=== PATIENT | male | born 1980 | race Caucasian/White ===

== ENCOUNTER 2020-06-13 14:50 | Emergency (ER) | payer MEDICAID, SELFPAY ==
[2020-06-13 15:16] VITALS: BP 127/71; PULSE 83; RESP 22; TEMP 36.6; O2SAT 99; BMI 55.0
--- NOTE | 2020-06-13 15:16 | ECG_ITS ---
Test Reason : CP Blood Pressure : / mmHG Vent. Rate : 075 BPM Atrial Rate : 075 BPM P-R Int : 188 ms QRS Dur : 086 ms QT Int : 372 ms P-R-T Axes : 043 065 042 degrees QTc Int : 415 ms Normal sinus rhythm Normal ECG No previous ECGs available Referred By: Terence Sargent Electronically Signed By:LETICIA ROMO MD
--- NOTE | 2020-06-13 15:17 | XR_ITS ---
EXAMINATION: XR CHEST CLINICAL INFORMATION: Chest pain COMPARISON: None TECHNIQUE: Frontal view of the chest was obtained. FINDINGS: No significant abnormality is noted involving the heart, lungs, mediastinum, bony thorax or soft tissues. XR/XR chest 1V IMPRESSION: Unremarkable examination.
--- NOTE | 2020-06-13 15:19 | ED.CHESTPAIN ---
HPI - Chest Pain General Chief Complaint: Chest Pain Stated Complaint: chest pain Time Seen by Provider: 06/13/20 15:16 Source: patient Mode of arrival: ambulatory Limitations: no limitations History of Present Illness HPI narrative: Patient presents to the ED for tingling in hands/face, sweating, nervousness, and chest pain for the past 2 days. patient states he started having symptoms after his told him some news. patient denies any swelling of legs, calf pain, shrontess of breath on exertion, dizziness, or passing out. patient denies any recent exposure to covid. Related Data Allergies Allergy/AdvReac Type Severity Reaction Status Date / Time No Known Allergies Allergy Unverified 01/27/20 19:11 [No Known Allergies*] Review of Systems Review of Systems: Yes all other systems are reviewed and are negative Constitutional: Constitutional: Reports as per HPI and Reports no additional constitutional complaints Eyes: Eyes: Reports as per HPI and Reports no additional eye complaints ENT: Reports system reviewed and no additional complaints, except as documented and Reports as per HPI Cardiovascular: Cardiovascular: Reports as per HPI, Reports no additional cardiovascular complaints and Reports chest pain Respiratory: Respiratory: Reports as per HPI and Reports no additional respiratory complaints Gastrointestinal: Gastrointestinal: Reports as per HPI and Reports no additional gastrointestinal complaints Genitourinary: Genitourinary: Reports no additional male genitourinary complaints and Reports as per HPI Musculoskeletal: Musculoskeletal: Reports no additional musculoskeletal complaints and Reports as per HPI Neurologic: Reports system reviewed and no additional complaints, except as documented and Reports as per HPI Psychiatric: Psychiatric: Reports no additional psychiatric complaints and Reports as per HPI [facility] Past Medical History Medical History Anxiety Depression GERD (gastroesophageal reflux disease) Hypercholesteremia Hypertension Social History Social History Advance Directives: No Advance Directives Information Provided: Yes Physical Exam Vital Signs: Vital Signs: Last Vital Signs Temp 98 F 06/13/20 15:16 Pulse 83 06/13/20 15:16 Resp 22 H 06/13/20 15:16 BP 127/71 06/13/20 15:16 Pulse Ox 99 06/13/20 15:16 Body Mass Index 55.0 Const: Other: patient cry and anxious. patient states history of severe anxiety. General: cooperative, healthy appearing, no acute distress, well developed, alert, awake and Physically active Orientation/consciousness: patient oriented x3 HENMT: Head: Yes normal to inspection, Yes No palpable skull fracture present, Yes normocephalic and Yes atraumatic Eyes: General: appearance normal, both eyes and all related structures Neck: Neck: Yes normal visual inspection, Yes full ROM, Yes no lymphadenopathy, Yes no meningeal signs and No tender Chest: Chest palpation & inspection: normal inspection of the chest and normal palpation of entire chest wall Breast/axilla inspection: normal inspection of the breasts Resp: Effort & Inspection: normal respiratory effort and able to speak in complete sentences Auscultation: clear to auscultation bilaterally Cardio: Jugular venous distension: no JVD Heart sounds: S1 normal heart sound present and S2 normal heart sound present GI: Inspection: Yes normal to inspection Palpation (GI): Soft to palpation, not firm, nontender, no guarding and not rigid : General: No CVA tenderness and Yes no CVA tenderness Back/Spine/Pelvis: Back: no CVA tenderness, No CVA tenderness and No back tenderness Skin: General skin exam: no rashes or lesions noted and elasticity normal Neuro: General: patient oriented x3, no meningeal signs and CN's II-XI intact bilaterally Cranial nerves: Yes CN's II-XII intact bilaterally Extrem: Other: lower extremities negative for swelling, pitting edmea, or calf tenderness. General: Yes normal to inspection and Yes full ROM Psych: Appearance: grossly normal, well kempt and not disheveled Course Course Course Narrative: Anxiety. Will do medical workup due to obestiy Reevaluation(s) Reevaluation #1: Patient ekg normal and negative for stemi. Patient troponin is negative. Patient's D-dimer is negative with perc score of 0. Chest xray negative for pneumonia and covid swab is negative. After watching videos on his cellphone. patient is no longer anxious and states he feels better. patient will follow up with his pCp and therapist. MDM - Chest Pain MDM Narrative Medical decision making narrative: anxiety, chest pain Lab Data Result diagrams: 06/13/20 15:57 06/13/20 15:57 Labs: Lab Results 06/13/20 06/13/20 06/13/20 Range/Units 15:56 15:56 15:57 WBC 12.7 H (4.8-10.8) X10*3/uL RBC 5.39 (4.60-5.80) X10*6/uL Hgb 14.5 (14.0-18.0) g/dl Hct 45.3 (42-52) % MCV 84.0 (80-98) fL MCH 26.9 L (27.0-33.0) pg MCHC 32.0 (31.0-36.0) g/dl RDW 14.2 (11.0-16.0) % Plt Count 220 (160-400) X10*3/uL MPV 12.3 (9.4-12.4) fL Immature Gran % (Auto) 0.4 (0.0-0.4) % Neut % (Auto) 78.3 H (45-73) % Lymph % (Auto) 14.2 L (20-40) % Pitkin % (Auto) 6.5 (2-11) % Eos % (Auto) 0.4 (0-4) % Baso % (Auto) 0.2 (0-2) % Lymph # (Auto) 1.8 (1.2-4.9) X10*3/uL Pitkin # (Auto) 0.8 (0.1-1.2) X10*3/uL Eos # (Auto) 0.1 (0.0-0.4) X10*3/uL Baso # (Auto) 0.0 (0.0-0.2) X10*3/uL Abs Immat Gran (auto) 0.05 H (0.00-0.03) X10*3/uL Absolute Neuts (auto) 9.9 H (2.0-8.3) X10*3/uL Absolute Nucleated RBC 0.000 (0.0-0.012) X10*3/uL Nucleated RBC % (auto) 0.0 (0.0-0.2) /100WBC PT (10.8-13.0) SEC INR (0.9-1.1) APTT (24.1-38.0) SEC D-Dimer NG/ML Sodium (135-145) mmol/L Potassium (3.3-5.1) mmol/L Chloride (96-108) mmol/L Carbon Dioxide (22-29) mmol/L Anion Gap (12-20) BUN (9-16) mg/dL Creatinine (0.5-1.4) mg/dL Estim Creat Clear Calc Estimated GFR Random Glucose (60-115) mg/dL Calcium (8.4-10.2) mg/dL Ferritin (20-250) ng/mL Total Bilirubin (0.0-1.0) mg/dL Direct Bilirubin (0.0-0.5) mg/dL AST (5-37) U/L ALT (0-40) U/L Alkaline Phosphatase (39-117) U/L Lactate Dehydrogenase (118-273) U/L Troponin I High Sens (<3.5-35.0) ng/L B-Natriuretic Peptide (<100) pg/mL Total Protein (6.5-8.0) g/dL Albumin (3.5-5.0) g/dL Lipase 18 (8-78) U/L Procalcitonin 0.02 ng/mL Coronavirus (PCR) (Negative) Influenza Type A (PCR) (Negative) Influenza Type B (PCR) (Negative) RSV RNA Qual (PCR) (Negative) 06/13/20 06/13/20 06/13/20 Range/Units 15:57 15:57 15:57 WBC (4.8-10.8) X10*3/uL RBC (4.60-5.80) X10*6/uL Hgb (14.0-18.0) g/dl Hct (42-52) % MCV (80-98) fL MCH (27.0-33.0) pg MCHC (31.0-36.0) g/dl RDW (11.0-16.0) % Plt Count (160-400) X10*3/uL MPV (9.4-12.4) fL Immature Gran % (Auto) (0.0-0.4) % Neut % (Auto) (45-73) % Lymph % (Auto) (20-40) % Pitkin % (Auto) (2-11) % Eos % (Auto) (0-4) % Baso % (Auto) (0-2) % Lymph # (Auto) (1.2-4.9) X10*3/uL Pitkin # (Auto) (0.1-1.2) X10*3/uL Eos # (Auto) (0.0-0.4) X10*3/uL Baso # (Auto) (0.0-0.2) X10*3/uL Abs Immat Gran (auto) (0.00-0.03) X10*3/uL Absolute Neuts (auto) (2.0-8.3) X10*3/uL Absolute Nucleated RBC (0.0-0.012) X10*3/uL Nucleated RBC % (auto) (0.0-0.2) /100WBC PT 13.8 H (10.8-13.0) SEC INR 1.2 H (0.9-1.1) APTT 37.9 (24.1-38.0) SEC D-Dimer < 200 NG/ML Sodium 139 (135-145) mmol/L Potassium 4.6 (3.3-5.1) mmol/L Chloride 105 (96-108) mmol/L Carbon Dioxide 27 (22-29) mmol/L Anion Gap 12 (12-20) BUN 9 (9-16) mg/dL Creatinine 0.76 (0.5-1.4) mg/dL Estim Creat Clear Calc 217.8 Estimated GFR > 60 Random Glucose 97 (60-115) mg/dL Calcium 8.6 (8.4-10.2) mg/dL Ferritin 54 (20-250) ng/mL Total Bilirubin 0.2 (0.0-1.0) mg/dL Direct Bilirubin < 0.2 (0.0-0.5) mg/dL AST 17 (5-37) U/L ALT 25 (0-40) U/L Alkaline Phosphatase 76 (39-117) U/L Lactate Dehydrogenase 173 (118-273) U/L Troponin I High Sens < 3.5 (<3.5-35.0) ng/L B-Natriuretic Peptide < 10 (<100) pg/mL Total Protein 7.3 (6.5-8.0) g/dL Albumin 4.0 (3.5-5.0) g/dL Lipase (8-78) U/L Procalcitonin ng/mL Coronavirus (PCR) (Negative) Influenza Type A (PCR) (Negative) Influenza Type B (PCR) (Negative) RSV RNA Qual (PCR) (Negative) 06/13/20 Range/Units 17:52 WBC (4.8-10.8) X10*3/uL RBC (4.60-5.80) X10*6/uL Hgb (14.0-18.0) g/dl Hct (42-52) % MCV (80-98) fL MCH (27.0-33.0) pg MCHC (31.0-36.0) g/dl RDW (11.0-16.0) % Plt Count (160-400) X10*3/uL MPV (9.4-12.4) fL Immature Gran % (Auto) (0.0-0.4) % Neut % (Auto) (45-73) % Lymph % (Auto) (20-40) % Pitkin % (Auto) (2-11) % Eos % (Auto) (0-4) % Baso % (Auto) (0-2) % Lymph # (Auto) (1.2-4.9) X10*3/uL Pitkin # (Auto) (0.1-1.2) X10*3/uL Eos # (Auto) (0.0-0.4) X10*3/uL Baso # (Auto) (0.0-0.2) X10*3/uL Abs Immat Gran (auto) (0.00-0.03) X10*3/uL Absolute Neuts (auto) (2.0-8.3) X10*3/uL Absolute Nucleated RBC (0.0-0.012) X10*3/uL Nucleated RBC % (auto) (0.0-0.2) /100WBC PT (10.8-13.0) SEC INR (0.9-1.1) APTT (24.1-38.0) SEC D-Dimer NG/ML Sodium (135-145) mmol/L Potassium (3.3-5.1) mmol/L Chloride (96-108) mmol/L Carbon Dioxide (22-29) mmol/L Anion Gap (12-20) BUN (9-16) mg/dL Creatinine (0.5-1.4) mg/dL Estim Creat Clear Calc Estimated GFR Random Glucose (60-115) mg/dL Calcium (8.4-10.2) mg/dL Ferritin (20-250) ng/mL Total Bilirubin (0.0-1.0) mg/dL Direct Bilirubin (0.0-0.5) mg/dL AST (5-37) U/L ALT (0-40) U/L Alkaline Phosphatase (39-117) U/L Lactate Dehydrogenase (118-273) U/L Troponin I High Sens (<3.5-35.0) ng/L B-Natriuretic Peptide (<100) pg/mL Total Protein (6.5-8.0) g/dL Albumin (3.5-5.0) g/dL Lipase (8-78) U/L Procalcitonin ng/mL Coronavirus (PCR) NEGATIVE (Negative) Influenza Type A (PCR) NEGATIVE (Negative) Influenza Type B (PCR) NEGATIVE (Negative) RSV RNA Qual (PCR) NEGATIVE (Negative) ECG Data ECG #1: Interpretation: NOrmal sinus rhythm. vent rate 75, IL interval 188, and QRS 86, QTC 415. negative for stemi. Discharge Plan Discharge Clinical Impression: Chest pain, Anxiety Patient Disposition: Home, Self-Care Instructions: Chest Pain (ED), Anxiety (ED) Additional Instructions: Return to the ED for any chest pain, shortness of breath, fever, chills, swelling of lower extremities, calf pain, or any other concerning symptoms. Follow up with PCP. Interventions: ED Discharge Assessment Last Done: 06/13/20 18:32 Print Language: Iranian
[2020-06-13 16:04] LABS: MANUAL DIFF FLAG NO
[2020-06-13 16:05] LABS: Basophils Percent Auto 0.2 % (0-2); Eosinophils Absolute Auto 0.1 X10*3/uL (0.0-0.4); Eosinophils Percent Auto 0.4 % (0-4); Hematocrit 45.3 % (42-52); Hemoglobin 14.5 g/dl (14.0-18.0); Imm Gran Abs Auto 0.05 X10*3/uL (0.00-0.03); Imm Gran Pct Auto 0.4 % (0.0-0.4); Lymphocytes Absolute Auto 1.8 X10*3/uL (1.2-4.9); Lymphocytes Percent Auto 14.2 % (20-40); Mean Corpuscular Hemoglobin 26.9 pg (27.0-33.0); Mean Platelet Volume 12.3 fL (9.4-12.4); Monocytes Absolute Auto 0.8 X10*3/uL (0.1-1.2); Monocytes Percent Auto 6.5 % (2-11); Neutrophils Absolute Auto 9.9 X10*3/uL (2.0-8.3); Neutrophils Percent Auto 78.3 % (45-73); Platelet Count 220 X10*3/uL (160-400); Red Blood Count 5.39 X10*6/uL (4.60-5.80); Red Cell Distribution Width 14.2 % (11.0-16.0); White Blood Count 12.7 X10*3/uL (4.8-10.8)
[2020-06-13 16:19] LABS: INTERNATIONAL NORM RATIO 1.2 (0.9-1.1); Prothrombin Time 13.8 SEC (10.8-13.0)
[2020-06-13 16:22] LABS: Partial Thromboplastin Time 37.9 SEC (24.1-38.0)
[2020-06-13 16:38] LABS: Alanine Aminotransferase 25 U/L (0-40); Alkaline Phosphatase 76 U/L (39-117); Anion Gap 12 (12-20); Aspartate Amino Transferase 17 U/L (5-37); Bilirubin Direct < 0.2 mg/dL (0.0-0.5); Bilirubin Total 0.2 mg/dL (0.0-1.0); Blood Urea Nitrogen 9 mg/dL (9-16); Calcium 8.6 mg/dL (8.4-10.2); Carbon Dioxide 27 mmol/L (22-29); Chloride 105 mmol/L (96-108); Creatinine Clr Calc Pharmacy 217.8; Estimated Glomerular Filt Rate > 60; Glucose Random 97 mg/dL (60-115); Lactate Dehydrogenase 173 U/L (118-273); Potassium 4.6 mmol/L (3.3-5.1); Sodium 139 mmol/L (135-145); Total Protein 7.3 g/dL (6.5-8.0)
[2020-06-13 16:38] LABS: Lipase 18 U/L (8-78)
[2020-06-13 16:42] LABS: B Type Natriuretic Peptide < 10 pg/mL (<100); Troponin-I High Sensitivity < 3.5 ng/L (<3.5-35.0)
[2020-06-13 16:55] LABS: Procalcitonin 0.02 ng/mL
[2020-06-13 16:58] LABS: Ferritin 54 ng/mL (20-250)
[2020-06-13 17:44] LABS: D Dimer < 200 NG/ML
[2020-06-13 18:43] LABS: Influenza A PCR NEGATIVE (Negative); Influenza B PCR NEGATIVE (Negative); Resp Syncy Virus RNA Qual PCR NEGATIVE (Negative); SARS COV2 PCR INHOUSE NEGATIVE (Negative)
== END 2020-06-13 18:49 | disposition home or self-care (01) ==
LOC: HO.ED 18:49
PROVIDERS: Physician Assistant; Emergency Provider Emergency Medicine
DX: R07.9 Chest pain, unspecified (principal); F41.9 Anxiety disorder, unspecified; Z20.822 Contact with and (suspected) exposure to COVID-19; I10 Essential (primary) hypertension; K21.9 Gastro-esophageal reflux disease without esophagitis
CPT/HCPCS: 0241U; 36415; 71045; 80053; 80076; 82248; 82728; 83615; 83690; 83880; 84145; 84484; 85025; 85379; 85610; 85730; 93005; 99283

== ENCOUNTER 2020-07-17 20:39 | Emergency (ER) | payer MEDICAID, SELFPAY ==
--- NOTE | ~2020-07-17 | XR_ITS ---
EXAMINATION: PORTABLE CHEST 1 VIEW CLINICAL INFORMATION: cp . COMPARISON: 06/13/2020. TECHNIQUE: Portable frontal view of the chest was obtained. FINDINGS: The lungs are hypoexpanded. No focal infiltrate, effusion, edema, or pneumothorax. Cardiac and mediastinal silhouettes are within normal limits for technique. No acute bony abnormality seen. XR/XR chest 1V IMPRESSION: Hypoexpanded but otherwise no evidence of acute disease.
[2020-07-17 20:53] VITALS: BP 113/73; BP 158/80; PULSE 72; PULSE 82; RESP 16; TEMP 36.6; O2SAT 95; O2SAT 98; BMI 53.4
[2020-07-17 21:01] VITALS: BP 118/87; PULSE 63; PULSE 67; RESP 13; TEMP 36.6; O2SAT 96
--- NOTE | 2020-07-17 21:09 | ED_ITS ---
HPI - Chest Pain General Chief Complaint: Chest Pain Stated Complaint: chest pain x 3 days Time Seen by Provider: 07/17/20 21:09 Source: patient Mode of arrival: EMS Limitations: no limitations History of Present Illness HPI narrative: Patient morbidly obese being over 300 lb with history of sleep apnea no history of coronary artery disease complaining of midsternal chest pain for last 3 days off and on lasting for few seconds no shortness of breath no palpitation no nausea no vomiting. Patient also has chronic left shoulder and left arm pain for last 3 months Related Data Previous Rx's Medication Instructions Recorded tramadol 50 mg PO Q6H PRN #20 tab 07/17/20 Allergies Allergy/AdvReac Type Severity Reaction Status Date / Time No Known Allergies Allergy Verified 07/17/20 20:53 [No Known Allergies*] Review of Systems Review of Systems: Constitutional : No Weight loss, No Fever, No Chills ENT/Mouth : No sore throat, No Rhinorrhea Eyes: No Eye Pain, No Swelling Cardiovascular : +Chest Pain, no palpitations Respiratory : No Cough, No Sputum, no shortness of breath Gastrointestinal : no Nausea, No Vomiting, No Diarrhea, No abdominal Pain, no black stools Genitourinary : No Dysuria, No Urinary Frequency Musculoskeletal : No joint pain, No Myalgias, No Joint Swelling Skin : No Skin Lesions, No rash Neuro : No Weakness, No Numbness, No Dizziness, No Headache Psych : No Anxiety/Panic, No Depression Heme/Lymph: No Bruising, No Lymphadenopathy Endocrine : No Polyuria, No Polydipsia All other systems reviewed and are negative [facility] Past Medical History Medical History Anxiety Depression GERD (gastroesophageal reflux disease) Hypercholesteremia Hypertension Social History Social History Alcohol intake: former Smoking Status: Former smoker Use of substances other than those prescribed or required for medical reasons: No Advance Directives: No Advance Directives Information Provided: No Physical Exam Vital Signs: Vital Signs: Last Vital Signs Temp 97.9 F 07/17/20 21:01 Pulse 66 07/17/20 21:38 Resp 16 07/17/20 21:38 BP 127/64 07/17/20 21:38 Pulse Ox 97 07/17/20 21:38 Body Mass Index 53.4 Appearance: Alert. Oriented X3. No acute distress. Obese Eyes: Pupils equal, round and reactive to light. ENT: Pharynx normal. Neck: Normal inspection. Neck supple. CVS: Normal heart rate and rhythm. Pulses normal. Respiratory: No respiratory distress. Breath sounds normal. Abdomen: Soft and nontender. Bowel sounds are present, no mass palpable, no CVA tenderness Skin: Skin warm and dry. Normal skin color. Normal skin turgor. Extremities: No lower extremity edema. Neuro: Oriented X 3. No motor deficit. No sensory deficit. MDM - Chest Pain MDM Narrative Medical decision making narrative: Patient has atypical chest pain normal cardiogram negative troponin chest Pain been there for last 3 days been here before for similar complaints unlikely to be cardiac or renal patient advised to follow-up with PCP/architectural technician Lab Data Result diagrams: 07/17/20 21:18 07/17/20 21:18 Labs: Lab Results 07/17/20 07/17/20 07/17/20 Range/Units 21:18 21:18 21:18 WBC 14.4 H (4.8-10.8) X10*3/uL RBC 5.02 (4.60-5.80) X10*6/uL Hgb 13.3 L (14.0-18.0) g/dl Hct 42.3 (42-52) % MCV 84.3 (80-98) fL MCH 26.5 L (27.0-33.0) pg MCHC 31.4 (31.0-36.0) g/dl RDW 14.3 (11.0-16.0) % Plt Count 237 (160-400) X10*3/uL MPV 12.0 (9.4-12.4) fL Immature Gran % (Auto) 0.3 (0.0-0.4) % Neut % (Auto) 66.6 (45-73) % Lymph % (Auto) 23.5 (20-40) % Webb % (Auto) 8.7 (2-11) % Eos % (Auto) 0.7 (0-4) % Baso % (Auto) 0.2 (0-2) % Lymph # (Auto) 3.4 (1.2-4.9) X10*3/uL Webb # (Auto) 1.3 H (0.1-1.2) X10*3/uL Eos # (Auto) 0.1 (0.0-0.4) X10*3/uL Baso # (Auto) 0.0 (0.0-0.2) X10*3/uL Abs Immat Gran (auto) 0.04 H (0.00-0.03) X10*3/uL Absolute Neuts (auto) 9.6 H (2.0-8.3) X10*3/uL Absolute Nucleated RBC 0.000 (0.0-0.012) X10*3/uL Nucleated RBC % (auto) 0.0 (0.0-0.2) /100WBC PT 13.5 H (10.8-13.0) SEC INR 1.1 (0.9-1.1) Sodium 141 (135-145) mmol/L Potassium 3.8 (3.3-5.1) mmol/L Chloride 107 (96-108) mmol/L Carbon Dioxide 26 (22-29) mmol/L Anion Gap 12 (12-20) BUN 15 D (9-16) mg/dL Creatinine 0.80 (0.5-1.4) mg/dL Estim Creat Clear Calc 191.4 Estimated GFR > 60 Random Glucose 85 (60-115) mg/dL Calcium 8.2 L (8.4-10.2) mg/dL Total Bilirubin 0.2 (0.0-1.0) mg/dL Direct Bilirubin < 0.2 (0.0-0.5) mg/dL AST 21 (5-37) U/L ALT 35 (0-40) U/L Alkaline Phosphatase 71 (39-117) U/L Troponin I High Sens (<3.5-35.0) ng/L Total Protein 6.8 (6.5-8.0) g/dL Albumin 3.6 (3.5-5.0) g/dL 07/17/20 Range/Units 21:18 WBC (4.8-10.8) X10*3/uL RBC (4.60-5.80) X10*6/uL Hgb (14.0-18.0) g/dl Hct (42-52) % MCV (80-98) fL MCH (27.0-33.0) pg MCHC (31.0-36.0) g/dl RDW (11.0-16.0) % Plt Count (160-400) X10*3/uL MPV (9.4-12.4) fL Immature Gran % (Auto) (0.0-0.4) % Neut % (Auto) (45-73) % Lymph % (Auto) (20-40) % Webb % (Auto) (2-11) % Eos % (Auto) (0-4) % Baso % (Auto) (0-2) % Lymph # (Auto) (1.2-4.9) X10*3/uL Webb # (Auto) (0.1-1.2) X10*3/uL Eos # (Auto) (0.0-0.4) X10*3/uL Baso # (Auto) (0.0-0.2) X10*3/uL Abs Immat Gran (auto) (0.00-0.03) X10*3/uL Absolute Neuts (auto) (2.0-8.3) X10*3/uL Absolute Nucleated RBC (0.0-0.012) X10*3/uL Nucleated RBC % (auto) (0.0-0.2) /100WBC PT (10.8-13.0) SEC INR (0.9-1.1) Sodium (135-145) mmol/L Potassium (3.3-5.1) mmol/L Chloride (96-108) mmol/L Carbon Dioxide (22-29) mmol/L Anion Gap (12-20) BUN (9-16) mg/dL Creatinine (0.5-1.4) mg/dL Estim Creat Clear Calc Estimated GFR Random Glucose (60-115) mg/dL Calcium (8.4-10.2) mg/dL Total Bilirubin (0.0-1.0) mg/dL Direct Bilirubin (0.0-0.5) mg/dL AST (5-37) U/L ALT (0-40) U/L Alkaline Phosphatase (39-117) U/L Troponin I High Sens < 3.5 (<3.5-35.0) ng/L Total Protein (6.5-8.0) g/dL Albumin (3.5-5.0) g/dL ECG Data ECG #1: Attestation: I personally reviewed and interpreted this ECG as follows: Interpretation: Normal sinus rhythm heart rate 82 beats per minute normal axis normal intervals no acute ST T wave changes impression normal EKG Discharge Plan Discharge Clinical Impression: Chest pain Patient Disposition: Home, Self-Care Instructions: Chest Wall Pain (ED) Additional Instructions: Your chest pain is unlikely coming from the heart. Take Tylenol/Motrin for the pain. Follow with PCP/architectural technician Prescriptions: New tramadol 50 mg tablet 50 mg PO Q6H PRN (Reason: pain) Qty: 20 RF: 0 Interventions: ED Discharge Assessment Last Done: 07/17/20 22:46 Discharge Date/Time: 07/17/20 22:48
[2020-07-17 21:23] LABS: MANUAL DIFF FLAG NO
[2020-07-17 21:26] LABS: Basophils Percent Auto 0.2 % (0-2); Eosinophils Absolute Auto 0.1 X10*3/uL (0.0-0.4); Eosinophils Percent Auto 0.7 % (0-4); Hematocrit 42.3 % (42-52); Hemoglobin 13.3 g/dl (14.0-18.0); Imm Gran Abs Auto 0.04 X10*3/uL (0.00-0.03); Imm Gran Pct Auto 0.3 % (0.0-0.4); Lymphocytes Absolute Auto 3.4 X10*3/uL (1.2-4.9); Lymphocytes Percent Auto 23.5 % (20-40); Mean Corpuscular HGB Conc 31.4 g/dl (31.0-36.0); Mean Corpuscular Hemoglobin 26.5 pg (27.0-33.0); Mean Corpuscular Volume 84.3 fL (80-98); Monocytes Absolute Auto 1.3 X10*3/uL (0.1-1.2); Monocytes Percent Auto 8.7 % (2-11); Neutrophils Absolute Auto 9.6 X10*3/uL (2.0-8.3); Neutrophils Percent Auto 66.6 % (45-73); Platelet Count 237 X10*3/uL (160-400); Red Blood Count 5.02 X10*6/uL (4.60-5.80); Red Cell Distribution Width 14.3 % (11.0-16.0); White Blood Count 14.4 X10*3/uL (4.8-10.8)
[2020-07-17 21:36] LABS: INTERNATIONAL NORM RATIO 1.1 (0.9-1.1); Prothrombin Time 13.5 SEC (10.8-13.0)
[2020-07-17 21:38] VITALS: BP 127/64; PULSE 66; RESP 16; O2SAT 97
[2020-07-17 21:46] LABS: Alanine Aminotransferase 35 U/L (0-40); Albumin Level 3.6 g/dL (3.5-5.0); Alkaline Phosphatase 71 U/L (39-117); Anion Gap 12 (12-20); Aspartate Amino Transferase 21 U/L (5-37); Bilirubin Direct < 0.2 mg/dL (0.0-0.5); Bilirubin Total 0.2 mg/dL (0.0-1.0); Blood Urea Nitrogen 15 mg/dL (9-16); Calcium 8.2 mg/dL (8.4-10.2); Carbon Dioxide 26 mmol/L (22-29); Chloride 107 mmol/L (96-108); Creatinine Clr Calc Pharmacy 191.4; Estimated Glomerular Filt Rate > 60; Glucose Random 85 mg/dL (60-115); Potassium 3.8 mmol/L (3.3-5.1); Sodium 141 mmol/L (135-145); Total Protein 6.8 g/dL (6.5-8.0)
[2020-07-17 21:52] LABS: Troponin-I High Sensitivity < 3.5 ng/L (<3.5-35.0)
== END 2020-07-17 22:48 | disposition home or self-care (01) ==
PROVIDERS: Emergency Provider Internal Medicine
DX: R07.9 Chest pain, unspecified (principal); I10 Essential (primary) hypertension; F41.9 Anxiety disorder, unspecified; K21.9 Gastro-esophageal reflux disease without esophagitis; Z87.891 Personal history of nicotine dependence
CPT/HCPCS: 36415; 71045; 80048; 80076; 84484; 85025; 85610; 99283; 99285

== ENCOUNTER → 2021-01-02 10:32 | Outpatient (BNVA) | payer MEDICAID, SELFPAY | PROVIDERS: PCP Nurse Practitioner Family; Referring Provider Nurse Practitioner Family; Visit Provider Psychiatry & Neurology Neurology | DX: G47.33 Obstructive sleep apnea (adult) (pediatric) (principal) | CPT/HCPCS: 99202 ==

== ENCOUNTER → 2021-02-05 12:57 | Outpatient (REF) | payer MEDICAID, SELFPAY | LOC: HO.SL 12:57 | PROVIDERS: Visit Provider Psychiatry & Neurology Neurology | DX: G47.33 Obstructive sleep apnea (adult) (pediatric) (principal) | CPT/HCPCS: 95806 ==

== ENCOUNTER 2021-03-06 11:13 | Outpatient (REF) | payer MEDICAID, SELFPAY ==
[2021-03-06 13:00] LABS: MANUAL DIFF FLAG NO
[2021-03-06 13:25] LABS: Basophils Percent Auto 0.3 % (0-2); Eosinophils Absolute Auto 0.2 X10*3/uL (0.0-0.4); Eosinophils Percent Auto 1.1 % (0-4); Hemoglobin 14.1 g/dl (14.0-18.0); Imm Gran Abs Auto 0.05 X10*3/uL (0.00-0.03); Imm Gran Pct Auto 0.4 % (0.0-0.4); Lymphocytes Absolute Auto 3.1 X10*3/uL (1.2-4.9); Lymphocytes Percent Auto 22.6 % (20-40); Mean Corpuscular HGB Conc 31.3 g/dl (31.0-36.0); Mean Corpuscular Hemoglobin 26.7 pg (27.0-33.0); Mean Corpuscular Volume 85.2 fL (80-98); Mean Platelet Volume 12.3 fL (9.4-12.4); Monocytes Absolute Auto 1.1 X10*3/uL (0.1-1.2); Monocytes Percent Auto 7.8 % (2-11); Neutrophils Absolute Auto 9.4 X10*3/uL (2.0-8.3); Neutrophils Percent Auto 67.8 % (45-73); Platelet Count 226 X10*3/uL (160-400); Red Blood Count 5.28 X10*6/uL (4.60-5.80); White Blood Count 13.9 X10*3/uL (4.8-10.8)
[2021-03-06 13:50] LABS: C Reactive Protein 1.95 mg/dL (< or = 0.50)
[2021-03-06 14:13] LABS: Ferritin 90 ng/mL (20-250)
[2021-03-08 16:11] LABS: Transglutaminase Ab IgG <1.0 U/mL; Transglutaminase IgA <1.0 U/mL
== END 2021-03-06 11:14 | disposition home or self-care (01) ==
LOC: HO.LAB 11:13
PROVIDERS: PCP Nurse Practitioner Family; Referring Provider Nurse Practitioner Family; Visit Provider Nurse Practitioner
DX: R19.7 Diarrhea, unspecified (principal); K92.1 Melena
CPT/HCPCS: 36415; 82728; 83516; 85025; 86140; 99202

== ENCOUNTER → 2021-03-20 09:58 | Outpatient (BNVA) | payer MEDICAID, SELFPAY | PROVIDERS: PCP Nurse Practitioner Family; Referring Provider Nurse Practitioner Family; Visit Provider Psychiatry & Neurology Neurology ==

== ENCOUNTER → 2021-04-03 20:12 | Outpatient (REF) | payer MEDICAID, SELFPAY | LOC: HO.SL 20:12 | PROVIDERS: PCP Nurse Practitioner Family; Visit Provider Psychiatry & Neurology Neurology | DX: G47.33 Obstructive sleep apnea (adult) (pediatric) (principal) | CPT/HCPCS: 95811 ==

== ENCOUNTER 2021-06-15 06:25 | Day surgery (SDC) | payer MEDICAID, SELFPAY ==
[2021-06-11 09:55] VITALS: BMI 54.6
--- NOTE | 2021-06-14 13:01 | HO.ANESPROP2 ---
Documented by User: Madison Norton NP 06/14/21 13:03 HPI - Anesthesia Eval Consult details Narrative: 41yo M for Colonoscopy PMFSH Active Problems Active Problems: All Active Problems (Updated 03/07/21 @ 13:14 by JOSETTE Foster) Obstructive sleep apnea (Acute) Diarrhea (Acute) Hematochezia (Acute) Leukocytosis (Acute) Past Medical History Medical History Anxiety Depression GERD (gastroesophageal reflux disease) Hypercholesteremia Hypertension Obstructive sleep apnea Family History Family History Mother Arterial stent thrombosis Maternal Grandmother Diabetes Dementia Father Lung cancer Surgical History Surgical History H/O circumcision Social History Social History Household Members: Significant Other and Children Alcohol intake: former Patient Tobacco Use Status: Never used Tobacco Advance Directives Information Provided: Yes (brochure mailed) Advance Directives on File: No Current occupational status: disabled Meds Allergies Allergy/AdvReac Type Severity Reaction Status Date / Time No Known Allergies Allergy Verified 06/15/21 06:49 [No Known Allergies*] Home Medications Medication Instructions Recorded Confirmed Last Taken Type atorvastatin 80 mg tablet 80 mg PO DAILY 01/02/21 06/11/21 Unknown History cholecalciferol (vitamin D3) 50 50 mcg PO DAILY 01/02/21 06/11/21 Unknown History mcg (2,000 unit) capsule dicyclomine 20 mg tablet 20 mg PO DAILY PRN 01/02/21 06/11/21 Unknown History ezetimibe 10 mg tablet 10 mg PO DAILY 01/02/21 06/11/21 Unknown History hydroxyzine HCl 25 mg tablet 25 mg PO TID PRN 03/06/21 06/11/21 Unknown History ibuprofen 800 mg tablet 800 mg PO TID 03/06/21 06/11/21 Unknown History Exam Exam Date and Time: June 14, 2021 1301 Height,Weight and Vital Signs: Height 5 ft 11 in Weight 177.808 kg Narrative Narrative: EKG 2020 Vent. Rate : 075 BPM ? ? Atrial Rate : 075 BPM ?? P-R Int : 188 ms? QRS Dur : 086 ms ? ? QT Int : 372 ms ? ? ? P-R-T Axes : 043 065 042 degrees ?? QTc Int : 415 ms ? Normal sinus rhythm Normal ECG No previous ECGs available Assessment and Plan Assessment Anesthesia Assessment: Chart Reviewed Documented by User: Chelsea Lawrence MD 06/15/21 07:33 [facility] Past Medical History Medical History Anxiety Depression GERD (gastroesophageal reflux disease) Hypercholesteremia Hypertension Obstructive sleep apnea Functional capacity: independent ambulation Family History Family History Mother Arterial stent thrombosis Maternal Grandmother Diabetes Dementia Father Lung cancer Family history of problems with anesthesia: No Surgical History Surgical History H/O circumcision History of Problems with Anesthesia: No Social History Social History Household Members: Significant Other and Children Alcohol intake: former Patient Tobacco Use Status: Never used Tobacco Advance Directives Information Provided: Yes (brochure mailed) Advance Directives on File: No Current occupational status: disabled Meds Allergies Allergy/AdvReac Type Severity Reaction Status Date / Time No Known Allergies Allergy Verified 06/15/21 06:49 [No Known Allergies*] Home Medications Medication Instructions Recorded Confirmed Last Taken Type atorvastatin 80 mg tablet 80 mg PO DAILY 01/02/21 06/11/21 Unknown History cholecalciferol (vitamin D3) 50 50 mcg PO DAILY 01/02/21 06/11/21 Unknown History mcg (2,000 unit) capsule dicyclomine 20 mg tablet 20 mg PO DAILY PRN 01/02/21 06/11/21 Unknown History ezetimibe 10 mg tablet 10 mg PO DAILY 01/02/21 06/11/21 Unknown History hydroxyzine HCl 25 mg tablet 25 mg PO TID PRN 03/06/21 06/11/21 Unknown History ibuprofen 800 mg tablet 800 mg PO TID 03/06/21 06/11/21 Unknown History Exam Airway Mallampati Class: II TM Dist: >3cm Neck ROM: Full Heart: RRR Lungs: CTA Assessment and Plan Final Anesthetic Review Family History of Problems with Anesthesia: No History of Problems with Anesthesia: No NPO: Yes ASA Class: III Final Preanesthetic Review: No Changes in Pt Med Stat, Meds/Allgs Chart Reviewed, Consent Obtained/Reviewed and Anes Risks/Benef Reviewed Patient Risk: Low Procedure Risk: Low Anesthetic Plan Anesthetic Plan: MAC: Disposition: Standard PACU
[2021-06-15 06:43] VITALS: BP 123/67; PULSE 71; RESP 18; TEMP 36.2; O2SAT 94
[2021-06-15] MEDS: Lactated Ringers 1,000 ML 100 ML IVCONT (07:01)
--- NOTE | 2021-06-15 07:21 | MHC.SHP ---
Pre-Procedural Eval Section A Date of Service: 06/15/21 The patient is an INPATIENT: No The History & Physical has been completed within 30 days and I have reviewed it.: No Section B Chief Complaint: diarrhea Details of Present Illness: Diarrhea, rectal bleeding Relevant Family History (Specify if Yes): No Relevant Social History: None Present Medications: see Short Stay Collaborative assessment Medical History: Significant History (Anxiety Depression GERD (gastroesophageal reflux disease) Hypercholesteremia Hypertension) Allergies: Allergies Allergy/AdvReac Type Severity Reaction Status Date / Time No Known Allergies Allergy Verified 06/15/21 06:49 [No Known Allergies*] Review of Systems Sugical H&P ROS: Negative: Cardiovascular and Respiratory and Yes, Specify: Constitution (morbidly obese) and Gastrointestinal (diarrhea, rectal bleeding) Exam Surgical H&P Exam: Normal: Heart, Normal: Lungs, Normal: Extremities and Normal: Abdomen Plan Diagnosis/Plan: Unchanged I have reviewed the history and physical and performed a pertinent physical examination on my patient. No changes have occurred unless specified.
--- NOTE | 2021-06-15 08:49 | W.PM.OPN ---
Operative Note Operative Note Date of Service: 06/15/21 Narrative: Pre-op diagnosis: Diarrhea, rectal bleeding Post-op diagnosis:?other (Colon polyp, diverticulosis, hemorrhoids) Procedure: COLONOSCOPY TILL CECUM WITH BIOPSIES AND SNARE POLYPECTOMY Consent: Indications for the procedure and potential complications of bleeding, perforation, reaction to medications and missed diagnosis were discussed with the patient and informed consent was obtained. Instrument: Olympus CF H 190 L variable stiffness adult colonoscope Monitoring: Vital signs and clinical assessment, intermittent blood pressure monitoring, continuous EKG monitoring, Pulse oximetry and Carbon Dioxide monitoring were done throughout the procedure. Pt. had transient hypoxia and was moving around during the procedure and had to be held by multiple OR personel. Colon withdrawl time was 15 minutes. Procedure: The patient was placed in the left lateral decubitis position and pre-procedure medications were administered. After a digital rectal examination of the ano-rectum, the video colonoscope was inserted into the rectum and advanced through the colon to the cecum. The colonoscope was slowly withdrawn in a retrograde panoramic fashion and the colon mucosa was carefully examined including a retroflexed view of the rectum. Findings and interventions are described below. Procedure Difficulty: Without difficulty Findings: Terminal Ileum: Not evaluated Cecum:? Normal Ascending Colon:? Normal Transverse Colon:? Normal Descending Colon:? Normal Sigmoid Colon:? A 2.5 to 3 cms pedunculated polyp at 35 cms removed with a hot snare. Moderate diverticulosis Rectum:? Normal Ano-rectum:? Moderate internal hemorrhoids Colon preparation:? Good? Impression and Post Procedure Diagnosis: Colonoscopy Findings: One large polyp removed Moderate diverticulosis seen in the sigmoid colon Moderate hemorrhoids on retroflexed exam. Plan: Await pathology results Patient has an appointment on 06/28/21 in the GI Clinic with? Jessika Bustillo NP. Repeat Colonoscopy interval based on path results - in 1 year to check polypectomy site in the sigmoid colon if polyps are adenomatous (needs GA and adult colonoscope) for future procedures. Above findings were reviewed with the patient and colon polyps and diverticulosis handouts were given in the discharge area Surgeon: Harvinder Valiente MD Anesthesia:?JANICE (Dr Prasad) Was an Electronic News Gathering Camera Person used for this Procedure?:?Yes Electronic News Gathering Camera Person:?Martine Redmond Estimated blood loss (mL):?0 Pathology:?other ( a. random colon bx's? b. sigmoid colon polyp) Condition:?stable Disposition:?PACU
[2021-06-15 08:50] VITALS: BMI 60.6
[2021-06-15 09:40] VITALS: BP 132/79; PULSE 75; RESP 17; TEMP 37.1; O2SAT 93
[2021-06-15 09:55] VITALS: BP 140/73; PULSE 65; RESP 16; O2SAT 94
--- NOTE | 2021-06-15 10:28 | HO.POSTANES ---
Post Anesthesia Evaluation Post Anesthesia Evaluation Vital Signs: Vital Signs Temp Pulse Resp BP Pulse Ox 06/15/21 09:55 65 16 140/73 H 94 06/15/21 09:40 98.8 F 75 17 132/79 93 06/15/21 06:43 97.2 F 71 18 123/67 94 Anesthesia: Monitored Mental Status: Awake Pain Control: Satisfactory Nausea/Vomiting: None Hydration: Adequate Anesthesia-Related Issues: No Anes. Related Issues
== END 2021-06-15 10:56 | disposition home or self-care (01) ==
PROVIDERS: PCP Nurse Practitioner Family; Visit Provider Internal Medicine Gastroenterology
PROC: 0DJD8ZZ Inspection of Lower Intestinal Tract, Via Natural or Artificial Opening Endoscopic (ICD-10-PCS; CPT 45378; principal; 2021-06-15 09:10)
DX: R19.7 Diarrhea, unspecified (principal); K92.1 Melena; D72.829 Elevated white blood cell count, unspecified; D12.5 Benign neoplasm of sigmoid colon; K57.30 Diverticulosis of large intestine without perforation or abscess without bleeding; K64.8 Other hemorrhoids; I10 Essential (primary) hypertension; G47.33 Obstructive sleep apnea (adult) (pediatric); E78.00 Pure hypercholesterolemia, unspecified; K21.9 Gastro-esophageal reflux disease without esophagitis; R73.03 Prediabetes; E66.01 Morbid (severe) obesity due to excess calories; F32.9 Major depressive disorder, single episode, unspecified; F12.90 Cannabis use, unspecified, uncomplicated; Z79.899 Other long term (current) drug therapy
CPT/HCPCS: 45385; 45380; 88305

== ENCOUNTER 2021-06-28 09:03 | Outpatient (REF) | payer MEDICAID, SELFPAY ==
--- NOTE | ~2021-06-28 | US_ITS ---
EXAMINATION: US ABDOMEN COMPLETE CLINICAL INFORMATION: Diarrhea, unspecified. COMPARISON: None TECHNIQUE: Real-time imaging of the abdominal viscera. Technically difficult study secondary to body habitus and difficulty suspending respiration. FINDINGS: Limited exam due to body habitus. PANCREAS: The pancreas is obscured by overlying gas. ABDOMINAL AORTA: The proximal, mid, and distal segments are normal in caliber. INFERIOR VENA CAVA: Visualized portions are normal. LIVER: The liver is normal in size. The liver contour is normal. There is increased liver echogenicity. No focal hepatic lesion. There is no intrahepatic biliary duct dilatation seen. GALLBLADDER: Normal. The gallbladder is physiologically distended without evidence of stones, sludge, polyps, wall thickening or pericholecystic fluid. COMMON BILE DUCT: Normal in caliber measuring 0.3 cm in diameter. RIGHT KIDNEY: Normal. No hydronephrosis. No renal calculi or focal parenchymal lesions. The kidney measures 13.1 cm in maximum dimension. LEFT KIDNEY: Normal. No hydronephrosis. No renal calculi or focal parenchymal lesions. The kidney measures 12.6 cm in maximum dimension. SPLEEN: Normal. The spleen measures 11.5 cm in maximum dimension. FREE FLUID: None. US/US abdomen complete IMPRESSION: Hepatic steatosis without focal lesion. Rest of the abdominal ultrasound is unremarkable.
== END 2021-06-28 09:04 | disposition home or self-care (01) ==
LOC: HO.US 09:03
PROVIDERS: PCP Nurse Practitioner Family; Visit Provider Nurse Practitioner
DX: R19.7 Diarrhea, unspecified (principal); K92.1 Melena
CPT/HCPCS: 76700

== ENCOUNTER → 2021-06-29 14:47 | Outpatient (BNVA) | payer MEDICAID, SELFPAY | PROVIDERS: PCP Nurse Practitioner Family; Referring Provider Nurse Practitioner Family; Visit Provider Nurse Practitioner | DX: K63.89 Other specified diseases of intestine (principal); D12.6 Benign neoplasm of colon, unspecified | CPT/HCPCS: 99212 ==

== ENCOUNTER → 2021-07-27 12:09 | Outpatient (BNVA) | payer MEDICAID, SELFPAY | PROVIDERS: Visit Provider Nurse Practitioner | DX: K63.89 Other specified diseases of intestine (principal); D12.6 Benign neoplasm of colon, unspecified | CPT/HCPCS: 99212 ==

== ENCOUNTER 2021-12-23 15:49 | Emergency (ER) | payer MEDICAID, SELFPAY ==
[2021-12-23 15:52] VITALS: BMI 56.2
[2021-12-23] MEDS: Acetaminophen 325 MG TABLET 650 MG PO (16:00)
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
[2021-12-23] MEDS: oxyCODONE HCl Immed Release 5 MG TABLET PO (16:47)
[2021-12-23] MEDS: Ketorolac Tromethamine 30 MG/ML VIAL IM (16:48)
[2021-12-23] MEDS: Bacitracin Oint 14 GM TUBE 1 APPL TOPICAL (18:32)
[2021-12-23] MEDS: Diphth,Pertus(ACell),Tet Adult 0.5 ML SYRINGE IM (18:42)
== END 2021-12-23 19:38 | disposition home or self-care (01) ==
PROVIDERS: Emergency Provider Emergency Medicine Emergency Medical Services
DX: T22.20XA Burn of second degree of shoulder and upper limb, except wrist and hand, unspecified site, initial encounter (principal); T25.221A Burn of second degree of right foot, initial encounter; T59.811A Toxic effect of smoke, accidental (unintentional), initial encounter; T31.0 Burns involving less than 10% of body surface; S40.812A Abrasion of left upper arm, initial encounter; X10.2XXA Contact with fats and cooking oils, initial encounter; Y93.G3 Activity, cooking and baking; Y92.000 Kitchen of unspecified non-institutional (private) residence as the place of occurrence of the external cause; Y99.9 Unspecified external cause status; Z79.899 Other long term (current) drug therapy
CPT/HCPCS: 16020; 90471; 90715; 96372; 99283; 99284; J1885

== ENCOUNTER 2022-01-07 07:58 | Outpatient (RCR) | payer MEDICAID, SELFPAY | END 2022-02-22 14:22 | disposition home or self-care (01) | LOC: HO.WCC 07:58 | PROVIDERS: Visit Provider Physician Assistant | DX: T22.212A Burn of second degree of left forearm, initial encounter (principal); T31.0 Burns involving less than 10% of body surface; I10 Essential (primary) hypertension; F12.90 Cannabis use, unspecified, uncomplicated; X10.2XXA Contact with fats and cooking oils, initial encounter; Y93.G3 Activity, cooking and baking; Y92.000 Kitchen of unspecified non-institutional (private) residence as the place of occurrence of the external cause; Y99.9 Unspecified external cause status | CPT/HCPCS: 16020; 99213 ==

== ENCOUNTER 2023-09-23 19:45 | Emergency (ER) | payer MEDICAID, SELFPAY ==
--- NOTE | 2023-09-23 | ECG_ITS ---
Test Reason : CP Blood Pressure : / mmHG Vent. Rate : 064 BPM Atrial Rate : 064 BPM P-R Int : 188 ms QRS Dur : 094 ms QT Int : 404 ms P-R-T Axes : 037 053 035 degrees QTc Int : 416 ms Normal sinus rhythm Normal ECG When compared to the previous EKG of No significant changes seen Referred By: Generic ED Physician Electronically Signed By:LETICIA ROMO MD
--- NOTE | ~2023-09-23 | XR_ITS ---
EXAMINATION: XR CHEST CLINICAL INFORMATION: Chest pain. COMPARISON: Chest radiograph dated 07/17/2020. TECHNIQUE: Frontal view of the chest was obtained. FINDINGS: Heart size is normal. The lungs are clear. There is no pleural effusion. No pneumothorax. No acute osseous abnormality. XR/XR chest 1V IMPRESSION: No acute cardiopulmonary disease.
[2023-09-23 19:56] VITALS: BP 128/78; PULSE 69; RESP 18; TEMP 36.8; O2SAT 96; BMI 52.1
--- NOTE | 2023-09-23 20:16 | ED.CHESTPAIN ---
HPI - Chest Pain General Chief Complaint: Chest Pain Stated Complaint: chest pain/left arm no stregth Time Seen by Provider: 09/24/23 00:57 Source: patient Mode of arrival: ambulatory Limitations: no limitations History of Present Illness HPI narrative: 43 yo male with HTN, HLD, ERUM, GERD here with c/o chest pain since Mothers day and pain in L arm and bicep he states it felt weak but has great strenght on exam. Hurts to move the arm and shoulder. He denies travel or procedures, no recent URI, not related to exertion. Does lift heavy things at work. MD complaint: chest pain Onset (ago): day(s) (4 days) Timing of current episode: constant Prior episodes: No Onset: during rest Pain location: left chest (shoulder) Pain radiation: none Severity: moderate Quality: aching Relieving factors: nothing Exacerbating factors: palpation and movement Treatment prior to arrival: none Related Data Home Medications ?Medication ?Instructions ?Recorded ?Confirmed atorvastatin 80 mg tablet 80 mg PO DAILY 01/02/21 10/17/22 cholecalciferol (vitamin D3) 50 50 mcg PO DAILY 01/02/21 10/17/22 mcg (2,000 unit) capsule dicyclomine 20 mg tablet 20 mg PO DAILY PRN abdominal pain 01/02/21 10/17/22 ezetimibe 10 mg tablet 10 mg PO DAILY 01/02/21 10/17/22 cimetidine 200 mg tablet 200 mg PO BID 10/17/22 10/17/22 cyclobenzaprine 5 mg tablet 5 mg PO TID 10/17/22 10/17/22 lisinopril 10 mg tablet 10 mg PO DAILY 10/17/22 10/17/22 psyllium husk 3.4 gram/5.4 gram 1 tsp PO DAILY 10/17/22 10/17/22 oral powder (Metamucil) sertraline 50 mg tablet 50 mg PO DAILY 10/17/22 10/17/22 Previous Rx's ?Medication ?Instructions ?Recorded tramadol 50 mg tablet 50 mg PO Q6H PRN pain #20 tabs 07/17/20 metronidazole 500 mg tablet 500 mg PO TID 10 days #30 tabs 06/29/21 bacitracin 500 unit/gram topical 1 appl topical BID #120 grams 12/23/21 ointment hydrocodone 5 mg-acetaminophen 325 1 tab PO Q8H PRN pain, severe 3 12/23/21 mg tablet days #9 tabs ibuprofen 800 mg tablet 800 mg PO Q8H PRN pain #14 tabs 12/23/21 peg 3350-electrolytes 236 240 ml PO Q10M #4,000 mL 10/17/22 gram-22.74 gram-6.74 gram-5.86 gram solution cyclobenzaprine 10 mg tablet 10 mg PO TID PRN muscle spasm #20 09/24/23 tabs lidocaine 5 % topical patch 1 patch topical DAILY #30 ea 09/24/23 Allergies Allergy/AdvReac Type Severity Reaction Status Date / Time No Known Allergies Allergy Verified 09/23/23 19:59 [No Known Allergies*] Review of Systems Review of Systems: Constitutional : No Fever, No Chills ENT/Mouth : No Ear Pain, No Hoarseness, No sore throat Eyes: No Eye Pain, No Swelling, No Redness, No Foreign Body Cardiovascular : pos Chest Pain, No SOB Respiratory : No Cough, No Dyspnea Gastrointestinal : No Nausea, No Vomiting, No Diarrhea, No abdominal Pain Genitourinary : No Dysuria, No Hematuria Musculoskeletal : positive joint pain, pos Myalgias, No Joint Swelling Skin : No Skin lacerations, No rash Neuro : No Weakness, No Numbness, No Loss of Consciousness, No Dizziness, No Headache Psych : No Anxiety/Panic, No Depression Heme/Lymph: no easy bruising, no Lymphadenopathy Endocrine : No Polyuria, No Polydipsia All other systems reviewed and are negative PMFSH Past Medical History Attestation statement: The following information was validated with the patient. Source: old records reviewed Medical History Obstructive sleep apnea Anxiety Depression Hypercholesteremia Hypertension GERD (gastroesophageal reflux disease) Surgical History H/O colonoscopy H/O circumcision Family History Family History Mother Arterial stent thrombosis Maternal Grandmother Diabetes Dementia Father Lung cancer Social History Social History Household Members: Significant Other and Children Are you a primary gericare aide teacher to a significant other at home: No Do you presently have visiting nurse or other home services: No Alcohol intake: current Alcohol intake frequency: holidays/special occasions only Patient Tobacco Use Status: Never used Tobacco Smoked in Last 30 Days: No Use of substances other than those prescribed or required for medical reasons: Yes Substance Use Type: Marijuana Substance Use Frequency: Daily Last Used Substance: Hours (ago) Advance Directives: No Advance Directives Information Provided: No Do you have a plan to hurt others: No Plan Current occupational status: disabled Physical Exam Vital Signs: Vital Signs: Last Vital Signs Temp 98.6 F 09/24/23 03:01 Pulse 56 09/24/23 03:01 Resp 18 09/24/23 03:01 BP 118/51 L 09/24/23 03:01 Pulse Ox 96 09/24/23 01:07 O2 Del Method Room Air 09/24/23 03:01 BMI result Body Mass Index 52.1 Appearance: Alert. Oriented X3. No acute distress. Eyes: Pupils equal, round and reactive to light. ENT: Pharynx normal. Neck: Normal inspection. Neck supple. CVS: Normal heart rate and rhythm. Pulses normal. Chest: pain along L trapezius, pectoralis, L shoulder Respiratory: No respiratory distress. Breath sounds normal. Abdomen: Soft and nontender. Skin: Skin warm and dry. Normal skin color. Normal skin turgor. Extremities: No lower extremity edema. No calf ttp Neuro: Oriented X 3. No motor deficit. No sensory deficit. Course Course Course Narrative: RME: Triage done by AURELIO Osei. Patient presents to ED for left arm pain radiating into left chest for the past 3 days. Patient denies any shortness of breath nausea or vomiting. Patient denies any recent trauma. Negative for redness swelling or ecchymosis of extremity. Will order EKG and chest x-ray. Medications Administered Discontinued Medications Generic Name Dose Route Start Last Admin Trade Name Freq PRN Reason Stop Dose Admin Cyclobenzaprine HCl 10 mg 09/24/23 01:20 09/24/23 01:26 Cyclobenzaprine Hcl 10 Mg Tablet PO 09/24/23 01:21 10 mg ONCE ONE Administration Lidocaine 1 patch 09/24/23 01:20 09/24/23 01:26 Lidocaine 4 % Patch Adh..Patch TRANSDERMA 09/24/23 01:21 1 patch ONCE ONE Administration Protocol Medical Decision Making Medical Decision Making [facility] Narrative: 43 yo male with HTN, HLD, ERUM, GERD here with c/o atypical chest pain that is reproduceable PERC negative distal pulses intact doubt dissection has pain that is reproduceable along chest wall. At this time will need basic labs, EKG, troponin x 1, CXR. no risk factors for VTE, pain is reproduceable seems atypical for acs not related to exertoin Differential Diagnosis Differential Diagnoses: The differential diagnosis associated with the presentation includes chest wall pain. Admission/Observation Consideration of admission/observation: Escalation of care including admission/observation considered Lab Data [facility] Lab Attestation statement: I reviewed the patient's lab results. 09/23/23 20:33 09/23/23 20:33 Labs: Lab Results 09/23/23 Range/Units 20:33 WBC 11.8 H (4.8-10.8) X10*3/uL RBC 4.86 (4.60-5.80) X10*6/uL Hgb 13.8 L (14.0-18.0) g/dl Hct 41.1 L (42.0-52.0) % MCV 84.6 (80.0-98.0) fL MCH 28.4 (27.0-33.0) pg MCHC 33.6 (31.0-36.0) g/dl RDW 13.4 (11.0-16.0) % Plt Count 204 (160-400) X10*3/uL MPV 11.9 (9.4-12.4) fL Immature Gran % (Auto) 0.3 (0.0-0.4) % Neut % (Auto) 64.1 (45-73) % Lymph % (Auto) 28.1 (20-40) % Ford % (Auto) 6.5 (2-11) % Eos % (Auto) 0.7 (0-4) % Baso % (Auto) 0.3 (0-2) % Lymph # (Auto) 3.3 (1.2-4.9) X10*3/uL [place] # (Auto) 0.8 (0.1-1.2) X10*3/uL Eos # (Auto) 0.1 (0.0-0.4) X10*3/uL Baso # (Auto) 0.0 (0.0-0.2) X10*3/uL Abs Immat Gran (auto) 0.03 (0.00-0.03) X10*3/uL Absolute Neuts (auto) 7.6 (2.0-8.3) x10*3/uL Absolute Nucleated RBC 0.000 (0.0-0.012) X10*3/uL Nucleated RBC % (auto) 0.0 (0.0-0.2) /100WBC Sodium 140 (135-145) mmol/L Potassium 3.7 (3.3-5.1) mmol/L Chloride 109 H (96-108) mmol/L Carbon Dioxide 20 L (22-29) mmol/L Anion Gap 15 (12-20) BUN 15 (9-16) mg/dL Creatinine 0.75 (0.5-1.4) mg/dL Estim Creat Clear Calc 189.1 Estimated GFR > 60 Random Glucose 80 (60-115) mg/dL Calcium 9.1 D (8.4-10.2) mg/dL Total Bilirubin 0.4 (0.0-1.0) mg/dL AST 23 (5-37) U/L ALT 29 (0-40) U/L Alkaline Phosphatase 69 (39-117) U/L Troponin I High Sens < 2.7 (<3.5-35.0) ng/L Total Protein 7.4 (6.5-8.0) g/dL Albumin 3.9 (3.5-5.0) g/dL Independent Interpretation I performed an independent interpretation of an: EKG and Plain X-Ray (normal ) Interpretation: Rate: 64 Rhythm: NSR [place]: normal Normal P waves. Normal NICKO. Normal QRS complex. ST T wave : normal no RAZIA qTC: 416 prior studies:no acute ischemia The study has been interpreted contemporaneously by me. . Radiology Impression Discussion of test interpretation with radiology: I have reviewed the radiologist's reading. External Record Review External record reviewed: Inpatient record Prescription Management I considered prescription management with: Other Discharge Plan Discharge Clinical Impression: Atypical chest pain, Muscle spasm Patient Disposition: Home, Self-Care Instructions: Chest Pain (ED), Muscle Spasm (ED) Additional Instructions: EKG and chest xray are reassuring. labs reassuring. tests for heart attack in blood are negative return for any worsening symptoms or concerns follow up with your doctor. Prescriptions: New cyclobenzaprine 10 mg tablet 10 mg PO TID PRN (Reason: muscle spasm) Qty: 20 0RF lidocaine 5 % adhesive patch,medicated 1 patch topical DAILY Qty: 30 0RF Rx Instructions: leave on most painful area for up to 12 hrs No Action peg 3350-electrolytes 236-22.74-6.74 -5.86 gram recon soln 240 ml PO Q10M Qty: 4000 0RF Rx Instructions: follow instructions provided [place] [facility] [place]- until fecal effluent is clear tramadol 50 mg tablet 50 mg PO Q6H PRN (Reason: pain) Qty: 20 0RF bacitracin 500 unit/gram ointment 1 appl topical BID Qty: 120 1RF ibuprofen 800 mg tablet 800 mg PO Q8H PRN (Reason: pain) Qty: 14 0RF hydrocodone-acetaminophen 5-325 mg tablet 1 tab PO Q8H PRN (Reason: pain, severe) 3 Days Qty: 9 0RF Rx Instructions: Partial Fill upon patient request. sertraline 50 mg Tablet 50 mg PO DAILY cimetidine 200 mg Tablet 200 mg PO BID Rx Instructions: administer with meals lisinopril 10 mg Tablet 10 mg PO DAILY cyclobenzaprine 5 mg Tablet 5 mg PO TID Metamucil 3.4 gram/5.4 gram Powder 1 tsp PO DAILY Rx Instructions: mix into at least 4 oz water or juice before administering cholecalciferol (vitamin D3) 50 mcg (2,000 unit) capsule 50 mcg PO DAILY ezetimibe 10 mg tablet 10 mg PO DAILY dicyclomine 20 mg tablet 20 mg PO DAILY PRN (Reason: abdominal pain) atorvastatin 80 mg tablet 80 mg PO DAILY metronidazole 500 mg tablet 500 mg PO TID 10 Days Qty: 30 0RF Stand Alone Forms: Work/School Release Interventions: ED Discharge Assessment Last Done: 09/24/23 03:01 Discharge Date/Time: 09/24/23 03:01 Print Language: Macedonian
--- NOTE | 2023-09-23 20:30 | MHC.EDTECH ---
Patient was brought into triage on arrival EKG taken per order and signed by provider. Labs obtained at this time and sent to lab.
[2023-09-23 20:38] LABS: MANUAL DIFF FLAG NO
[2023-09-23 20:44] LABS: Basophils Percent Auto 0.3 % (0-2); Eosinophils Absolute Auto 0.1 X10*3/uL (0.0-0.4); Eosinophils Percent Auto 0.7 % (0-4); Hematocrit 41.1 % (42.0-52.0); Hemoglobin 13.8 g/dl (14.0-18.0); Imm Gran Abs Auto 0.03 X10*3/uL (0.00-0.03); Imm Gran Pct Auto 0.3 % (0.0-0.4); Lymphocytes Absolute Auto 3.3 X10*3/uL (1.2-4.9); Lymphocytes Percent Auto 28.1 % (20-40); Mean Corpuscular HGB Conc 33.6 g/dl (31.0-36.0); Mean Corpuscular Hemoglobin 28.4 pg (27.0-33.0); Mean Corpuscular Volume 84.6 fL (80.0-98.0); Mean Platelet Volume 11.9 fL (9.4-12.4); Monocytes Absolute Auto 0.8 X10*3/uL (0.1-1.2); Monocytes Percent Auto 6.5 % (2-11); Neutrophils Absolute Auto 7.6 x10*3/uL (2.0-8.3); Neutrophils Percent Auto 64.1 % (45-73); Platelet Count 204 X10*3/uL (160-400); Red Blood Count 4.86 X10*6/uL (4.60-5.80); Red Cell Distribution Width 13.4 % (11.0-16.0); White Blood Count 11.8 X10*3/uL (4.8-10.8)
[2023-09-23 21:11] LABS: Alanine Aminotransferase 29 U/L (0-40); Albumin Level 3.9 g/dL (3.5-5.0); Alkaline Phosphatase 69 U/L (39-117); Anion Gap 15 (12-20); Aspartate Amino Transferase 23 U/L (5-37); Bilirubin Total 0.4 mg/dL (0.0-1.0); Blood Urea Nitrogen 15 mg/dL (9-16); Calcium 9.1 mg/dL (8.4-10.2); Carbon Dioxide 20 mmol/L (22-29); Chloride 109 mmol/L (96-108); Creatinine Clr Calc Pharmacy 189.1; Estimated Glomerular Filt Rate > 60; Glucose Random 80 mg/dL (60-115); Potassium 3.7 mmol/L (3.3-5.1); Sodium 140 mmol/L (135-145); Total Protein 7.4 g/dL (6.5-8.0)
[2023-09-23 21:26] LABS: Troponin-I High Sensitivity < 2.7 ng/L (<3.5-35.0)
[2023-09-23 22:10] VITALS: BP 129/81; PULSE 60; RESP 18; TEMP 36.8; O2SAT 98
[2023-09-24 01:07] VITALS: BP 126/58; PULSE 57; RESP 12; TEMP 37; O2SAT 96
[2023-09-24] MEDS: Lidocaine 4 % Patch ADH..PATCH 1 PATCH TRANSDERMA (01:26)
[2023-09-24] MEDS: Cyclobenzaprine HCl 10 MG TABLET PO (01:26)
--- NOTE | 2023-09-24 01:54 | PC.NURSE ---
pt medicated per JUL, lidocaine patch to L trapezius
[2023-09-24 02:57] VITALS: BP 118/51; PULSE 56; RESP 18; TEMP 37
[2023-09-24 03:01] VITALS: BP 118/51; PULSE 56; RESP 18; TEMP 37
== END 2023-09-24 03:01 | disposition home or self-care (01) ==
PROVIDERS: Emergency Provider Emergency Medicine
DX: R07.89 Other chest pain (principal); M62.838 Other muscle spasm; M79.622 Pain in left upper arm; I10 Essential (primary) hypertension; E78.00 Pure hypercholesterolemia, unspecified; K21.9 Gastro-esophageal reflux disease without esophagitis; F12.90 Cannabis use, unspecified, uncomplicated; Z79.899 Other long term (current) drug therapy
CPT/HCPCS: 36415; 71045; 80053; 84484; 85025; 93005; 99283; 99285

== ENCOUNTER → 2023-09-23 19:48 | Outpatient (BNV) | payer MEDICAID, SELFPAY | PROVIDERS: Emergency Provider Emergency Medicine; Visit Provider Internal Medicine Cardiovascular Disease | DX: R07.9 Chest pain, unspecified (principal) | CPT/HCPCS: 93010 ==

== ENCOUNTER 2023-11-24 14:27 | Emergency (ER) | payer MEDICAID, SELFPAY ==
--- NOTE | ~2023-11-24 | CT_ITS ---
EXAMINATION: CT ABDOMEN AND PELVIS WITH CONTRAST CLINICAL INFORMATION: left lower quadrant abdominal pain COMPARISON: No prior CT scans TECHNIQUE: Multidetector volumetric imaging was performed from the superior aspect of the liver through the pubic symphysis following administration of 100 mL Omnipaque 300 intravenous contrast. Sagittal and coronal reformatted images were obtained on the technologist workstation.. This CT examination was performed using dose optimization techniques as appropriate, variously including the following: *Automated exposure control *Adjustment of mA and/or kV according to patient size (this includes techniques or standardized protocols for targeted exams where dose is matched to indication/reason for exam; i.e. extremities or head) *Use of iterative reconstruction technique DLP: 1498 mGy-cm FINDINGS: LUNG BASES: The visualized lung bases are unremarkable. LIVER, GALLBLADDER, AND BILIARY TREE: The liver is normal in size, shape, and attenuation. No focal hepatic lesion or biliary ductal dilatation is present. The gallbladder is unremarkable with no evidence of radiopaque gallstones, gallbladder wall thickening, or obvious pericholecystic inflammatory changes. PANCREAS: Unremarkable. SPLEEN: Unremarkable. ADRENAL GLANDS: Unremarkable. KIDNEYS AND URETERS: The kidneys are normal in size, shape, and attenuation. No hydronephrosis, hydroureter, or perinephric stranding. No calculi. BLADDER: Although decompressed there is a component of concentric bladder wall thickening and underlying cystitis cannot be excluded from this appearance alone. Clinical correlation would be helpful. GASTROINTESTINAL TRACT: A few scattered colonic diverticula are seen. There is no colonic wall thickening or pericolonic inflammatory change to suggest diverticulitis. Normal-appearing appendix in the right lower quadrant. Visualized small bowel unremarkable ABDOMINAL WALL: No significant hernia is appreciated. LYMPHOVASCULAR STRUCTURES: Mild vascular calculation within the aorta iliac system. No bulky adenopathy PELVIC VISCERA: Unremarkable. OSSEOUS STRUCTURES: Mild degenerative changes at L5/S1 with bilateral pars defects at L5 CT/CT abdomen pelvis w IV con IMPRESSION: Although decompressed there is a component of concentric bladder wall thickening and underlying cystitis cannot be excluded from this appearance. Correlation with urinalysis would be recommended. No acute intra-abdominal process seen otherwise.
[2023-11-24 14:57] VITALS: BP 138/77; PULSE 62; RESP 18; TEMP 36.3; O2SAT 96; BMI 52.3
--- NOTE | 2023-11-24 15:11 | ED.GENADULT ---
HPI - General Adult General Chief complaint: Abdominal Pain Stated complaint: rectal bleeding Time Seen by Provider: 11/24/23 18:39 Source: patient Mode of arrival: ambulatory Limitations: no limitations History of Present Illness ED Provider: Dr. Tran HPI narrative: 43-year-old male presents emergency department complaining of bleeding from his rectum after having polyp removed. Our records show that he had the colonoscopy back in June he states he does have bowel movements does have stool please see due to the blood he denies any fevers chills denies feeling lightheaded chest pain cough or fever. Patient did not complain of abdominal pain initially belly exam was benign but then was I explained that he likely has a hemorrhoid this caused his bleeding is I did visualize on exam he states has abdominal pain in his left upper quadrant left lower quadrant and has been constant. He has had no surgeries Related Data Home Medications ?Medication ?Instructions ?Recorded ?Confirmed atorvastatin 80 mg tablet 80 mg PO DAILY 01/02/21 10/17/22 cholecalciferol (vitamin D3) 50 50 mcg PO DAILY 01/02/21 10/17/22 mcg (2,000 unit) capsule dicyclomine 20 mg tablet 20 mg PO DAILY PRN abdominal pain 01/02/21 10/17/22 ezetimibe 10 mg tablet 10 mg PO DAILY 01/02/21 10/17/22 cimetidine 200 mg tablet 200 mg PO BID 10/17/22 10/17/22 cyclobenzaprine 5 mg tablet 5 mg PO TID 10/17/22 10/17/22 lisinopril 10 mg tablet 10 mg PO DAILY 10/17/22 10/17/22 psyllium husk 3.4 gram/5.4 gram 1 tsp PO DAILY 10/17/22 10/17/22 oral powder (Metamucil) sertraline 50 mg tablet 50 mg PO DAILY 10/17/22 10/17/22 Previous Rx's ?Medication ?Instructions ?Recorded tramadol 50 mg tablet 50 mg PO Q6H PRN pain #20 tabs 07/17/20 metronidazole 500 mg tablet 500 mg PO TID 10 days #30 tabs 06/29/21 bacitracin 500 unit/gram topical 1 appl topical BID #120 grams 12/23/21 ointment hydrocodone 5 mg-acetaminophen 325 1 tab PO Q8H PRN pain, severe 3 12/23/21 mg tablet days #9 tabs ibuprofen 800 mg tablet 800 mg PO Q8H PRN pain #14 tabs 12/23/21 peg 3350-electrolytes 236 240 ml PO Q10M #4,000 mL 10/17/22 gram-22.74 gram-6.74 gram-5.86 gram solution cyclobenzaprine 10 mg tablet 10 mg PO TID PRN muscle spasm #20 09/24/23 tabs lidocaine 5 % topical patch 1 patch topical DAILY #30 ea 09/24/23 Allergies Allergy/AdvReac Type Severity Reaction Status Date / Time No Known Allergies Allergy Verified 11/24/23 15:06 [No Known Allergies*] Review of Systems Review of Systems: Review of systems: General: Patient denies any fever chills recent illness or falls Musculoskeletal: Denies back pain or body aches or other injuries HEENT: denies headache, runny nose, ear pain Respiratory: denies shortness of breath, cough Cardiovascular: no chest pain or palpitations : denies dysuria, frequency Abdomen: Rectal bleeding with bowel movement no nausea vomiting he also complains of abdominal pain in the left lower quadrant Extremities: no swelling, no pain Skin: no diaphoresis Yes all other systems are reviewed and are negative PMFSH Past Medical History Medical History Obstructive sleep apnea Anxiety Depression Hypercholesteremia Hypertension GERD (gastroesophageal reflux disease) Surgical History H/O colonoscopy H/O circumcision Family History Family History Mother Arterial stent thrombosis Maternal Grandmother Diabetes Dementia Father Lung cancer Social History Social History Household Members: Significant Other and Children Are you a primary dialysis patient care technician to a significant other at home: No Do you presently have visiting nurse or other home services: No Alcohol intake: current Alcohol intake frequency: holidays/special occasions only Patient Tobacco Use Status: Never used Tobacco Substance Use Type: Marijuana Advance Directives: No Advance Directives Information Provided: No Do you have a plan to hurt others: No Plan Current occupational status: disabled Physical Exam ED Vital Signs: Vital Signs - 24 hr 11/24/23 14:57 11/24/23 18:37 Temperature 97.4 F 98.2 F Pulse Rate 62 68 Respiratory Rate 18 18 Blood Pressure 138/77 96/39 L Pulse Oximetry 96 98 Oxygen Delivery Method Room Air Room Air BMI result Body Mass Index 52.3 General: Well-appearing well-nourished in no signs of distress HEENT: Normocephalic atraumatic Neck: No signs of JVD, no masses no tenderness or lymphadenopathy Cardiovascular: Regular rate and rhythm Respiratory: Clear to auscultation bilaterally Abdomen: Soft llq tenderness without guarding no masses rectal exam performed guia negative quality control assistant confirmed. Patient did have a small internal hemorrhoid Extremities: Normal pedal pulses no signs of edema Skin: Dry warm no rashes Back: No tenderness full ROM Course Course Course Narrative: RME performed by Fernanda Alexander PA-C. Patient is a 43 year old assigned male at presenting to the emergency department with bright red rectal bleeding ever since having a colon polyp removed. Detailed physical exam and review of systems are deferred to the imaging system administrator. Labs ordered. Patient placed back in the waiting room pending room availability and results. Medical Decision Making Medical Decision Making [facility] Narrative: I will send patient for CT scan the patient morphine fluids and reassess labs are all unremarkable Differential Diagnosis Differential Diagnoses: The differential diagnosis associated with the presentation includes Rectal bleeding hemorrhoids dehydration anemia diverticulitis or acute surgical abdomen Lab Data 11/24/23 15:25 11/24/23 15:25 Labs: Lab Results 11/24/23 11/24/23 Range/Units 15:25 15:48 WBC 7.5 (4.8-10.8) X10*3/uL RBC 5.05 (4.60-5.80) X10*6/uL Hgb 14.0 (14.0-18.0) g/dl Hct 42.5 (42.0-52.0) % MCV 84.2 (80.0-98.0) fL MCH 27.7 (27.0-33.0) pg MCHC 32.9 (31.0-36.0) g/dl RDW 13.4 (11.0-16.0) % Plt Count 190 (160-400) X10*3/uL MPV 11.8 (9.4-12.4) fL Immature Gran % (Auto) 0.3 (0.0-0.4) % Neut % (Auto) 63.0 (45-73) % Lymph % (Auto) 26.6 (20-40) % [place] % (Auto) 8.1 (2-11) % Eos % (Auto) 1.6 (0-4) % Baso % (Auto) 0.4 (0-2) % Lymph # (Auto) 2.0 (1.2-4.9) X10*3/uL [place] # (Auto) 0.6 (0.1-1.2) X10*3/uL Eos # (Auto) 0.1 (0.0-0.4) X10*3/uL Baso # (Auto) 0.0 (0.0-0.2) X10*3/uL Abs Immat Gran (auto) 0.02 (0.00-0.03) X10*3/uL Absolute Neuts (auto) 4.7 (2.0-8.3) x10*3/uL Absolute Nucleated RBC 0.000 (0.0-0.012) X10*3/uL Nucleated RBC % (auto) 0.0 (0.0-0.2) /100WBC Sodium 141 (135-145) mmol/L Potassium 3.7 (3.3-5.1) mmol/L Chloride 109 H (96-108) mmol/L Carbon Dioxide 23 (22-29) mmol/L Anion Gap 13 (12-20) BUN 9 (9-16) mg/dL Creatinine 0.72 (0.5-1.4) mg/dL Estim Creat Clear Calc 197.6 Estimated GFR > 60 Random Glucose 131 H (60-115) mg/dL Calcium 9.0 (8.4-10.2) mg/dL Total Bilirubin 0.3 (0.0-1.0) mg/dL Direct Bilirubin 0.1 (0.0-0.5) mg/dL AST 18 (5-37) U/L ALT 26 (0-40) U/L Alkaline Phosphatase 69 (39-117) U/L Total Protein 6.8 (6.5-8.0) g/dL Albumin 3.7 (3.5-5.0) g/dL Lipase 34 (8-78) U/L Urine Color Yellow Urine Appearance Clear Urine pH 5.0 (5.0-9.0) Ur Specific [place] >= 1.030 H (1.005-1.025) Urine Protein Negative (Neg-Trace) mg/dL Urine Glucose (UA) Negative (Negative) mg/dL Urine Ketones Negative (Negative) mg/dL Urine Blood Negative (Negative) Urine Nitrite Negative (Negative) Ur Leukocyte Esterase Negative (Negative) Discharge Plan Discharge Clinical Impression: Acute hemorrhoid, Abdominal pain Patient Disposition: Home, Self-Care Instructions: Abdominal Pain (ED), Hemorrhoids (DC) Additional Instructions: You were seen emergency department for abdominal pain and hemorrhoid. You had labs done which were all unremarkable no signs of anemia he also had a CT scan which unremarkable. Please call follow-up with your doctor if you have any other concerns please return to emergency department for Prescriptions: No Action peg 3350-electrolytes 236-22.74-6.74 -5.86 gram recon soln 240 ml PO Q10M Qty: 4000 0RF Rx Instructions: follow instructions provided by [facility] Gastroenterology office- until fecal effluent is clear tramadol 50 mg tablet 50 mg PO Q6H PRN (Reason: pain) Qty: 20 0RF bacitracin 500 unit/gram ointment 1 appl topical BID Qty: 120 1RF ibuprofen 800 mg tablet 800 mg PO Q8H PRN (Reason: pain) Qty: 14 0RF hydrocodone-acetaminophen 5-325 mg tablet 1 tab PO Q8H PRN (Reason: pain, severe) 3 Days Qty: 9 0RF Rx Instructions: Partial Fill upon patient request. sertraline 50 mg Tablet 50 mg PO DAILY cimetidine 200 mg Tablet 200 mg PO BID Rx Instructions: administer with meals lisinopril 10 mg Tablet 10 mg PO DAILY cyclobenzaprine 5 mg Tablet 5 mg PO TID Metamucil 3.4 gram/5.4 gram Powder 1 tsp PO DAILY Rx Instructions: mix into at least 4 oz water or juice before administering cyclobenzaprine 10 mg tablet 10 mg PO TID PRN (Reason: muscle spasm) Qty: 20 0RF lidocaine 5 % adhesive patch,medicated 1 patch topical DAILY Qty: 30 0RF Rx Instructions: leave on most painful area for up to 12 hrs cholecalciferol (vitamin D3) 50 mcg (2,000 unit) capsule 50 mcg PO DAILY ezetimibe 10 mg tablet 10 mg PO DAILY dicyclomine 20 mg tablet 20 mg PO DAILY PRN (Reason: abdominal pain) atorvastatin 80 mg tablet 80 mg PO DAILY metronidazole 500 mg tablet 500 mg PO TID 10 Days Qty: 30 0RF Print Language: Belarusian
[2023-11-24 15:49] LABS: MANUAL DIFF FLAG NO
[2023-11-24 15:51] LABS: Basophils Percent Auto 0.4 % (0-2); Eosinophils Absolute Auto 0.1 X10*3/uL (0.0-0.4); Eosinophils Percent Auto 1.6 % (0-4); Hematocrit 42.5 % (42.0-52.0); Imm Gran Abs Auto 0.02 X10*3/uL (0.00-0.03); Imm Gran Pct Auto 0.3 % (0.0-0.4); Lymphocytes Percent Auto 26.6 % (20-40); Mean Corpuscular HGB Conc 32.9 g/dl (31.0-36.0); Mean Corpuscular Hemoglobin 27.7 pg (27.0-33.0); Mean Corpuscular Volume 84.2 fL (80.0-98.0); Mean Platelet Volume 11.8 fL (9.4-12.4); Monocytes Absolute Auto 0.6 X10*3/uL (0.1-1.2); Monocytes Percent Auto 8.1 % (2-11); Neutrophils Absolute Auto 4.7 x10*3/uL (2.0-8.3); Platelet Count 190 X10*3/uL (160-400); Red Blood Count 5.05 X10*6/uL (4.60-5.80); Red Cell Distribution Width 13.4 % (11.0-16.0); White Blood Count 7.5 X10*3/uL (4.8-10.8)
[2023-11-24 15:55] LABS: Appearance Urine Clear; Color Urine Yellow; Glucose Urine UA Negative (Negative); Leukocyte Esterase Urine Negative (Negative); Nitrite Urine Negative (Negative); Specific Gravity - Urine >= 1.030 (1.005-1.025); Urine Blood Negative (Negative); Urine Ketones Negative (Negative); Urine Protein Negative (Neg-Trace)
[2023-11-24 16:08] LABS: Alanine Aminotransferase 26 U/L (0-40); Albumin Level 3.7 g/dL (3.5-5.0); Alkaline Phosphatase 69 U/L (39-117); Anion Gap 13 (12-20); Aspartate Amino Transferase 18 U/L (5-37); Bilirubin Direct 0.1 mg/dL (0.0-0.5); Bilirubin Total 0.3 mg/dL (0.0-1.0); Blood Urea Nitrogen 9 mg/dL (9-16); Carbon Dioxide 23 mmol/L (22-29); Chloride 109 mmol/L (96-108); Creatinine Clr Calc Pharmacy 197.6; Estimated Glomerular Filt Rate > 60; Glucose Random 131 mg/dL (60-115); Lipase 34 U/L (8-78); Potassium 3.7 mmol/L (3.3-5.1); Sodium 141 mmol/L (135-145); Total Protein 6.8 g/dL (6.5-8.0)
[2023-11-24 18:37] VITALS: BP 96/39; PULSE 68; RESP 18; TEMP 36.8; O2SAT 98
[2023-11-24] MEDS: Morphine Sulfate 4 MG/ML CARTRIDGE IVPUSH (19:10)
[2023-11-24] MEDS: 0.9 % Sodium Chloride 1,000 ML 999 ML IV (19:11)
[2023-11-24] MEDS: iohexoL 350 MG/ML 100 ML INFUS..BTL IV (19:46)
[2023-11-24 21:22] VITALS: BP 148/62; PULSE 54; RESP 18; TEMP 36.9; O2SAT 98
== END 2023-11-24 21:23 | disposition home or self-care (01) ==
PROVIDERS: Emergency Provider Student in an Organized Health Care Education/Training Program
DX: K64.9 Unspecified hemorrhoids (principal); K62.5 Hemorrhage of anus and rectum; R10.9 Unspecified abdominal pain; R11.2 Nausea with vomiting, unspecified; Z79.899 Other long term (current) drug therapy
CPT/HCPCS: 36415; 74177; 80048; 80076; 81003; 83690; 85025; 96361; 96374; 99284; J2270; Q9967

== ENCOUNTER 2023-12-15 15:26 | Emergency (ER) | payer MEDICAID, SELFPAY ==
[2023-12-15 16:14] VITALS: BP 141/90; PULSE 61; RESP 16; TEMP 36.6; O2SAT 98; BMI 52.3
--- NOTE | 2023-12-15 16:32 | ED_ITS ---
HPI - General Adult General Chief complaint: Abdominal Pain Stated complaint: gallbladder pain History of Present Illness HPI narrative: left withtout competion of treatment by ED provider Related Data Home Medications ?Medication ?Instructions ?Recorded ?Confirmed atorvastatin 80 mg tablet 80 mg PO DAILY 01/02/21 10/17/22 cholecalciferol (vitamin D3) 50 50 mcg PO DAILY 01/02/21 10/17/22 mcg (2,000 unit) capsule dicyclomine 20 mg tablet 20 mg PO DAILY PRN abdominal pain 01/02/21 10/17/22 ezetimibe 10 mg tablet 10 mg PO DAILY 01/02/21 10/17/22 cimetidine 200 mg tablet 200 mg PO BID 10/17/22 10/17/22 cyclobenzaprine 5 mg tablet 5 mg PO TID 10/17/22 10/17/22 lisinopril 10 mg tablet 10 mg PO DAILY 10/17/22 10/17/22 psyllium husk 3.4 gram/5.4 gram 1 tsp PO DAILY 10/17/22 10/17/22 oral powder (Metamucil) sertraline 50 mg tablet 50 mg PO DAILY 10/17/22 10/17/22 Previous Rx's ?Medication ?Instructions ?Recorded tramadol 50 mg tablet 50 mg PO Q6H PRN pain #20 tabs 07/17/20 metronidazole 500 mg tablet 500 mg PO TID 10 days #30 tabs 06/29/21 bacitracin 500 unit/gram topical 1 appl topical BID #120 grams 12/23/21 ointment hydrocodone 5 mg-acetaminophen 325 1 tab PO Q8H PRN pain, severe 3 12/23/21 mg tablet days #9 tabs ibuprofen 800 mg tablet 800 mg PO Q8H PRN pain #14 tabs 12/23/21 peg 3350-electrolytes 236 240 ml PO Q10M #4,000 mL 10/17/22 gram-22.74 gram-6.74 gram-5.86 gram solution cyclobenzaprine 10 mg tablet 10 mg PO TID PRN muscle spasm #20 09/24/23 tabs lidocaine 5 % topical patch 1 patch topical DAILY #30 ea 09/24/23 Allergies Allergy/AdvReac Type Severity Reaction Status Date / Time No Known Allergies Allergy Verified 12/15/23 16:18 [No Known Allergies*] [facility] Past Medical History Medical History Obstructive sleep apnea Anxiety Depression Hypercholesteremia Hypertension GERD (gastroesophageal reflux disease) Surgical History H/O colonoscopy H/O circumcision Family History Family History Mother Arterial stent thrombosis Maternal Grandmother Diabetes Dementia Father Lung cancer Social History Social History Household Members: Significant Other and Children Are you a primary urgent care physician assistant to a significant other at home: No Do you presently have visiting nurse or other home services: No Alcohol intake: current Alcohol intake frequency: holidays/special occasions only Patient Tobacco Use Status: Never used Tobacco Substance Use Type: Marijuana Advance Directives: No Advance Directives Information Provided: No Do you have a plan to hurt others: No Plan Current occupational status: disabled Physical Exam ED Vital Signs: Vital Signs - 24 hr 12/15/23 16:14 Temperature 97.8 F Pulse Rate 61 Respiratory Rate 16 Blood Pressure 141/90 H Pulse Oximetry 98 Oxygen Delivery Method Room Air BMI result Body Mass Index 52.3 Course Course Course Narrative: RME: DOne by AURELIO Sargent. 43-year-old male presents to ED for left-sided abdominal pain with urinary symptoms. Patient denies any chest pain or shortness of breath. Positive for left upper quadrant tenderness. Due to pain in left upper quadrant although no chest pain with EKG and troponin UA and labs. Medical Decision Making Lab Data 12/15/23 17:12 12/15/23 17:12 Labs: Lab Results 12/15/23 12/15/23 Range/Units 17:12 18:01 WBC 11.6 H (4.8-10.8) X10*3/uL RBC 5.26 (4.60-5.80) X10*6/uL Hgb 14.7 (14.0-18.0) g/dl Hct 45.3 (42.0-52.0) % MCV 86.1 (80.0-98.0) fL MCH 27.9 (27.0-33.0) pg MCHC 32.5 (31.0-36.0) g/dl RDW 13.7 (11.0-16.0) % Plt Count 198 (160-400) X10*3/uL MPV 11.7 (9.4-12.4) fL Immature Gran % (Auto) 0.3 (0.0-0.4) % Neut % (Auto) 62.1 (45-73) % Lymph % (Auto) 28.5 (20-40) % [place] % (Auto) 7.5 (2-11) % Eos % (Auto) 1.2 (0-4) % Baso % (Auto) 0.4 (0-2) % Lymph # (Auto) 3.3 (1.2-4.9) X10*3/uL [place] # (Auto) 0.9 (0.1-1.2) X10*3/uL Eos # (Auto) 0.1 (0.0-0.4) X10*3/uL Baso # (Auto) 0.1 (0.0-0.2) X10*3/uL Abs Immat Gran (auto) 0.03 (0.00-0.03) X10*3/uL Absolute Neuts (auto) 7.2 (2.0-8.3) x10*3/uL Absolute Nucleated RBC 0.000 (0.0-0.012) X10*3/uL Nucleated RBC % (auto) 0.0 (0.0-0.2) /100WBC Sodium 142 (135-145) mmol/L Potassium 4.5 D (3.3-5.1) mmol/L Chloride 107 (96-108) mmol/L Carbon Dioxide 27 (22-29) mmol/L Anion Gap 13 (12-20) BUN 15 (9-16) mg/dL Creatinine 0.79 (0.5-1.4) mg/dL Estim Creat Clear Calc 180.0 Estimated GFR > 60 Random Glucose 89 (60-115) mg/dL Calcium 9.4 (8.4-10.2) mg/dL Troponin I High Sens < 2.7 (<3.5-35.0) ng/L Lipase 16 (8-78) U/L Urine Color Yellow Urine Appearance Turbid Urine pH 7.5 (5.0-9.0) Ur Specific [place] 1.025 (1.005-1.025) Urine Protein Negative (Neg-Trace) mg/dL Urine Glucose (UA) Negative (Negative) mg/dL Urine Ketones Negative (Negative) mg/dL Urine Blood Negative (Negative) Urine Nitrite Negative (Negative) Ur Leukocyte Esterase Negative (Negative) Discharge Plan Discharge Clinical Impression: Abdominal pain Patient Disposition: Left W/O Completing Treatment Prescriptions: No Action peg 3350-electrolytes 236-22.74-6.74 -5.86 gram recon soln 240 ml PO Q10M Qty: 4000 0RF Rx Instructions: follow instructions provided by [facility] [place] Gastroenterology office- until fecal effluent is clear tramadol 50 mg tablet 50 mg PO Q6H PRN (Reason: pain) Qty: 20 0RF bacitracin 500 unit/gram ointment 1 appl topical BID Qty: 120 1RF ibuprofen 800 mg tablet 800 mg PO Q8H PRN (Reason: pain) Qty: 14 0RF hydrocodone-acetaminophen 5-325 mg tablet 1 tab PO Q8H PRN (Reason: pain, severe) 3 Days Qty: 9 0RF Rx Instructions: Partial Fill upon patient request. sertraline 50 mg Tablet 50 mg PO DAILY cimetidine 200 mg Tablet 200 mg PO BID Rx Instructions: administer with meals lisinopril 10 mg Tablet 10 mg PO DAILY cyclobenzaprine 5 mg Tablet 5 mg PO TID Metamucil 3.4 gram/5.4 gram Powder 1 tsp PO DAILY Rx Instructions: mix into at least 4 oz water or juice before administering cyclobenzaprine 10 mg tablet 10 mg PO TID PRN (Reason: muscle spasm) Qty: 20 0RF lidocaine 5 % adhesive patch,medicated 1 patch topical DAILY Qty: 30 0RF Rx Instructions: leave on most painful area for up to 12 hrs cholecalciferol (vitamin D3) 50 mcg (2,000 unit) capsule 50 mcg PO DAILY ezetimibe 10 mg tablet 10 mg PO DAILY dicyclomine 20 mg tablet 20 mg PO DAILY PRN (Reason: abdominal pain) atorvastatin 80 mg tablet 80 mg PO DAILY metronidazole 500 mg tablet 500 mg PO TID 10 Days Qty: 30 0RF Discharge Date/Time: 12/15/23 23:13
--- NOTE | 2023-12-15 16:33 | ECG_ITS ---
Test Reason : ABOMINAL PAIN Blood Pressure : / mmHG Vent. Rate : 051 BPM Atrial Rate : 051 BPM P-R Int : 198 ms QRS Dur : 086 ms QT Int : 416 ms P-R-T Axes : 019 058 046 degrees QTc Int : 383 ms Sinus bradycardia Otherwise normal ECG When compared to the previous EKG of No significant changes seen Referred By: Terence Sargent Electronically Signed By:LETICIA ROMO MD
[2023-12-15 17:16] LABS: MANUAL DIFF FLAG NO
[2023-12-15 17:32] LABS: Basophils Absolute Auto 0.1 X10*3/uL (0.0-0.2); Basophils Percent Auto 0.4 % (0-2); Eosinophils Absolute Auto 0.1 X10*3/uL (0.0-0.4); Eosinophils Percent Auto 1.2 % (0-4); Hematocrit 45.3 % (42.0-52.0); Hemoglobin 14.7 g/dl (14.0-18.0); Imm Gran Abs Auto 0.03 X10*3/uL (0.00-0.03); Imm Gran Pct Auto 0.3 % (0.0-0.4); Lymphocytes Absolute Auto 3.3 X10*3/uL (1.2-4.9); Lymphocytes Percent Auto 28.5 % (20-40); Mean Corpuscular HGB Conc 32.5 g/dl (31.0-36.0); Mean Corpuscular Hemoglobin 27.9 pg (27.0-33.0); Mean Corpuscular Volume 86.1 fL (80.0-98.0); Mean Platelet Volume 11.7 fL (9.4-12.4); Monocytes Absolute Auto 0.9 X10*3/uL (0.1-1.2); Monocytes Percent Auto 7.5 % (2-11); Neutrophils Absolute Auto 7.2 x10*3/uL (2.0-8.3); Neutrophils Percent Auto 62.1 % (45-73); Platelet Count 198 X10*3/uL (160-400); Red Blood Count 5.26 X10*6/uL (4.60-5.80); Red Cell Distribution Width 13.7 % (11.0-16.0); White Blood Count 11.6 X10*3/uL (4.8-10.8)
[2023-12-15 17:34] LABS: Anion Gap 13 (12-20); Blood Urea Nitrogen 15 mg/dL (9-16); Calcium 9.4 mg/dL (8.4-10.2); Carbon Dioxide 27 mmol/L (22-29); Chloride 107 mmol/L (96-108); Estimated Glomerular Filt Rate > 60; Glucose Random 89 mg/dL (60-115); Lipase 16 U/L (8-78); Potassium 4.5 mmol/L (3.3-5.1); Sodium 142 mmol/L (135-145)
[2023-12-15 17:43] LABS: Troponin-I High Sensitivity < 2.7 ng/L (<3.5-35.0)
[2023-12-15 18:16] LABS: Appearance Urine Turbid; Color Urine Yellow; Glucose Urine UA Negative (Negative); Leukocyte Esterase Urine Negative (Negative); Nitrite Urine Negative (Negative); PH 7.5 (5.0-9.0); Specific Gravity - Urine 1.025 (1.005-1.025); Urine Blood Negative (Negative); Urine Ketones Negative (Negative); Urine Protein Negative (Neg-Trace)
== END 2023-12-15 23:13 | disposition left against medical advice (07) ==
PROVIDERS: Physician Assistant; Emergency Provider Emergency Medicine
DX: R10.9 Unspecified abdominal pain (principal); R00.1 Bradycardia, unspecified; Z79.899 Other long term (current) drug therapy
CPT/HCPCS: 36415; 80048; 81003; 83690; 84484; 85025; 93005; 99283

== ENCOUNTER → 2023-12-15 16:33 | Outpatient (BNV) | payer MEDICAID, SELFPAY | PROVIDERS: Emergency Provider Emergency Medicine; Visit Provider Internal Medicine Cardiovascular Disease | DX: R00.1 Bradycardia, unspecified (principal) | CPT/HCPCS: 93010 ==

== ENCOUNTER 2023-12-17 11:36 | Outpatient (REF) | payer MEDICAID, SELFPAY ==
[2023-12-17 14:04] LABS: Alanine Aminotransferase 30 U/L (0-40); Albumin Level 3.9 g/dL (3.5-5.0); Alkaline Phosphatase 67 U/L (39-117); Anion Gap 10 (12-20); Aspartate Amino Transferase 19 U/L (5-37); Bilirubin Total 0.4 mg/dL (0.0-1.0); Blood Urea Nitrogen 12 mg/dL (9-16); Carbon Dioxide 27 mmol/L (22-29); Chloride 108 mmol/L (96-108); Cholesterol 290 mg/dL (<200); Estimated Glomerular Filt Rate > 60; Glucose Random 100 mg/dL (60-115); HDL Cholesterol 41 mg/dL (>40); LDL Cholesterol Calculated 235 mg/dL (<100); Potassium 4.5 mmol/L (3.3-5.1); Sodium 140 mmol/L (135-145); Total Protein 7.1 g/dL (6.5-8.0); Triglycerides 74 mg/dL (<150)
[2023-12-17 14:05] LABS: Estimated Average Glucose 117 mg/dL; Hemoglobin A1c % 5.7 % (<6.0)
== END 2023-12-17 11:37 | disposition home or self-care (01) ==
LOC: HO.HHCL 11:36
PROVIDERS: Nurse Practitioner; Visit Provider Nurse Practitioner Family
DX: I10 Essential (primary) hypertension (principal); R10.84 Generalized abdominal pain
CPT/HCPCS: 36415; 80053; 80061; 83036; 87086; 87338

== ENCOUNTER → 2024-11-30 10:01 | Outpatient (BNV) | payer OTHER, SELFPAY | PROVIDERS: Emergency Provider Emergency Medicine; Visit Provider Radiology Diagnostic Radiology | DX: M25.511 Pain in right shoulder (principal) | CPT/HCPCS: 73030 ==

== ENCOUNTER 2024-11-30 10:34 | Emergency (ER) | payer OTHER, MEDICAID, SELFPAY ==
--- NOTE | ~2024-11-30 | XR_ITS ---
EXAMINATION: XR SHOULDER, RIGHT CLINICAL INFORMATION: right shoulder pain COMPARISON: September 02, 2018. TECHNIQUE: AP external rotation, Grashey, scapular Y, and axillary views of the right shoulder. FINDINGS: No acute cortical disruption or malalignment. No lytic or blastic lesions. No gross sclerosis along the articular surfaces. XR/XR shoulder RT min 2V IMPRESSION: Normal x-ray right shoulder. Electronically signed by: Giles Wyatt MD 11/30/2024 11:07 AM EDT
[2024-11-30 10:45] VITALS: BP 150/75; PULSE 58; RESP 18; TEMP 36.6; O2SAT 98; BMI 55.5
--- NOTE | 2024-11-30 11:18 | ED.EXTPRO ---
HPI - Extremity Problem General Chief complaint: Extremity Injury, Upper Stated complaint: injured left arm / shoulder at work Time Seen by Provider: 11/30/24 11:04 Source: patient Mode of arrival: ambulatory Limitations: no limitations History of Present Illness ED Provider: Terence Sargent HPI Narrative: 44 yold male with pmh of high cholesterol presents to the ED for right shoulder pain since . 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 Patient denies any swelling, nubmness, tingling, redness, fever, or chills Related Data Home Medications ?Medication ?Instructions ?Recorded ?Confirmed atorvastatin 80 mg tablet 80 mg PO DAILY 01/02/21 10/17/22 cholecalciferol (vitamin D3) 50 50 mcg PO DAILY 01/02/21 10/17/22 mcg (2,000 unit) capsule dicyclomine 20 mg tablet 20 mg PO DAILY PRN abdominal pain 01/02/21 10/17/22 ezetimibe 10 mg tablet 10 mg PO DAILY 01/02/21 10/17/22 cimetidine 200 mg tablet 200 mg PO BID 10/17/22 10/17/22 cyclobenzaprine 5 mg tablet 5 mg PO TID 10/17/22 10/17/22 lisinopril 10 mg tablet 10 mg PO DAILY 10/17/22 10/17/22 psyllium husk 3.4 gram/5.4 gram 1 tsp PO DAILY 10/17/22 10/17/22 oral powder (Metamucil) sertraline 50 mg tablet 50 mg PO DAILY 10/17/22 10/17/22 Previous Rx's ?Medication ?Instructions ?Recorded tramadol 50 mg tablet 50 mg PO Q6H PRN pain #20 tabs 07/17/20 metronidazole 500 mg tablet 500 mg PO TID 10 days #30 tabs 06/29/21 bacitracin 500 unit/gram topical 1 appl topical BID #120 grams 12/23/21 ointment hydrocodone 5 mg-acetaminophen 325 1 tab PO Q8H PRN pain, severe 3 12/23/21 mg tablet days #9 tabs ibuprofen 800 mg tablet 800 mg PO Q8H PRN pain #14 tabs 12/23/21 peg 3350-electrolytes 236 240 ml PO Q10M #4,000 mL 10/17/22 gram-22.74 gram-6.74 gram-5.86 gram solution cyclobenzaprine 10 mg tablet 10 mg PO TID PRN muscle spasm #20 09/24/23 tabs lidocaine 5 % topical patch 1 patch topical DAILY #30 ea 09/24/23 naproxen 500 mg tablet 500 mg PO BID PRN pain #14 tabs 11/30/24 Allergies Allergy/AdvReac Type Severity Reaction Status Date / Time No Known Allergies (No Known Allergy Verified 11/30/24 10:47 Allergies*) Review of Systems Review of Systems: Right shoulder pain Yes all other systems are reviewed and are negative [facility] Past Medical History Medical History Obstructive sleep apnea Anxiety Depression Hypercholesteremia Hypertension GERD (gastroesophageal reflux disease) Surgical History H/O colonoscopy H/O circumcision Family History Family History Mother Arterial stent thrombosis Maternal Grandmother Diabetes Dementia Father Lung cancer Social History Social History Household Members: Significant Other and Children Are you a primary healthcare marketer to a significant other at home: No Do you presently have visiting nurse or other home services: No Alcohol intake: current Alcohol intake frequency: a few times a month Patient Tobacco Use Status: Never used Tobacco Smoked in Last 30 Days: No Use of substances other than those prescribed or required for medical reasons: Yes Substance Use Type: Marijuana Advance Directives: No Advance Directives Information Provided: Yes Do you have a plan to hurt others: No Plan Current occupational status: disabled Physical Exam Vital Signs: Vital Signs: Last Vital Signs Temp 97.9 F 11/30/24 12:35 Pulse 58 11/30/24 12:35 Resp 18 11/30/24 12:35 BP 150/75 H 11/30/24 12:35 Pulse Ox 98 11/30/24 12:35 O2 Del Method Room Air 11/30/24 12:35 BMI result Body Mass Index 55.5 Const: General: cooperative, healthy appearing, comfortable, no acute distress, well developed, alert, awake and Physically active Orientation/consciousness: patient oriented x3 HEENT: Head: Yes normal to inspection, Yes No palpable skull fracture present, Yes normocephalic and Yes atraumatic Eyes: General: appearance normal, both eyes and all related structures Neck: Neck: Yes normal visual inspection, Yes full ROM, Yes no lymphadenopathy, Yes no meningeal signs, Yes trachea midline, Yes supple, No anterior neck swelling and No tender Chest: Chest palpation & inspection: normal inspection of the chest and normal palpation of entire chest wall Resp: Effort & Inspection: normal respiratory effort and able to speak in complete sentences Auscultation: clear to auscultation bilaterally Cardio: Jugular venous distension: no JVD Heart sounds: S1 normal heart sound present and S2 normal heart sound present GI: Inspection: Yes normal to inspection Palpation (GI): Soft to palpation, not firm, nontender, no guarding and not rigid : General: Yes no CVA tenderness Back/Spine/Pelvis: Back: no CVA tenderness and No back tenderness Skin: General skin exam: no rashes or lesions noted, elasticity normal and turgor normal Neuro: General: patient oriented x3, gait normal, tone normal, moves all extremities, Normal light touch and pain sensation, no meningeal signs, no focal motor deficits, CN's II-XI intact bilaterally and normal sensation to monofilament Extrem: General: Yes normal to inspection, Yes full ROM and Yes capillary refill normal Shoulder/upper arm images:  1. positive for tenderness on palpation. positive for pain on range of motion. negative for swelling, redness, ecchymosis, deformities, or crepitus. Rest of extremity is normal. motor exam limited due to pain. vascular/neuro exam is intact. Psych: Appearance: grossly normal, well kempt and not disheveled Medications Administered Discontinued Medications Generic Name Dose Route Start Last Admin Trade Name Freq PRN Reason Stop Dose Admin Ketorolac Tromethamine 30 mg 11/30/24 12:03 11/30/24 12:10 Ketorolac Tromethamine 30 Mg/Ml Vial IM 11/30/24 12:04 30 mg ONCE ONE Administration Medical Decision Making Medical Decision Making MDM Narrative: 44-year-old male presents to ED for right shoulder pain since Friday. Patient states he was moving heavy boxes of chicken really fast to a higher level where he was working and while moving heavy boxes of chicken he heard a pop in his right shoulder since then has pain on range of motion of shoulder. Patient denies any blunt trauma, swelling, numbness/tingling, redness, slurred speech, facial droop, or weakness. Negative for dislocation. Physical exam does not indicate DVT, arterial occlusion, cellulitis, compartment syndrome, lymphangitis, or any other life-threatening etiology. Patient explained worrisome signs and informed to return to the ED immediately. Differential Diagnosis Differential Diagnoses: The differential diagnosis associated with the presentation includes (Rotator cuff injury, shoulder dislocation shoulder sprain) Admission/Observation Consideration of admission/observation: Escalation of care including admission/observation considered Independent Interpretation I performed an independent interpretation of an: Plain X-Ray Radiology Impression Discussion of test interpretation with radiology: I have reviewed the radiologist's reading. Independent Historian Clinical information obtained from an independent historian. History obtained from or confirmed by: Other (Patient) Prescription Management I considered prescription management with: Pain Medication Discharge Plan Discharge Clinical Impression: Muscle strain of right shoulder, Rotator cuff injury Patient Disposition: Home, Self-Care Instructions: Muscle Strain (ED), Rotator Cuff Injury (ED), Rotator Cuff Injury Exercises (DC) Additional Instructions: Recommend follow-up with work connection. If pain that is not improved you may need physical therapy and MRI. Return to the ED immediately for any increased swelling, redness, bluish black discoloration, inability to move, chest pain, shortness of breath, numbness/tingling, or any other concerning symptoms. Ordering Physician: Generic ED Physician Date of Service: 11/30/24 Procedure(s): XR shoulder RT min 2V Accession Number(s): [id number] cc: Generic ED Physician; [facility] EXAMINATION: XR SHOULDER, RIGHT CLINICAL INFORMATION: right shoulder pain COMPARISON: September 02, 2018. TECHNIQUE: AP external rotation, Grashey, scapular Y, and axillary views of the right shoulder. FINDINGS: No acute cortical disruption or malalignment. No lytic or blastic lesions. No gross sclerosis along the articular surfaces. XR/XR shoulder RT min 2V IMPRESSION: Normal x-ray right shoulder. Electronically signed by: Giles Wyatt MD 11/30/2024 11:07 AM EDT RP Prescriptions: New naproxen 500 mg tablet 500 mg PO BID PRN (Reason: pain) Qty: 14 0RF No Action peg 3350-electrolytes 236-22.74-6.74 -5.86 gram recon soln 240 ml PO Q10M Qty: 4000 0RF Rx Instructions: [place] [facility] [place]- until fecal effluent is clear tramadol 50 mg tablet 50 mg PO Q6H PRN (Reason: pain) Qty: 20 0RF bacitracin 500 unit/gram ointment 1 appl topical BID Qty: 120 1RF ibuprofen 800 mg tablet 800 mg PO Q8H PRN (Reason: pain) Qty: 14 0RF hydrocodone-acetaminophen 5-325 mg tablet 1 tab PO Q8H PRN (Reason: pain, severe) 3 Days Qty: 9 0RF Rx Instructions: Partial Fill upon patient request. sertraline 50 mg Tablet 50 mg PO DAILY cimetidine 200 mg Tablet 200 mg PO BID Rx Instructions: administer with meals lisinopril 10 mg Tablet 10 mg PO DAILY cyclobenzaprine 5 mg Tablet 5 mg PO TID Metamucil 3.4 gram/5.4 gram Powder 1 tsp PO DAILY Rx Instructions: mix into at least 4 oz water or juice before administering cyclobenzaprine 10 mg tablet 10 mg PO TID PRN (Reason: muscle spasm) Qty: 20 0RF lidocaine 5 % adhesive patch,medicated 1 patch topical DAILY Qty: 30 0RF Rx Instructions: leave on most painful area for up to 12 hrs cholecalciferol (vitamin D3) 50 mcg (2,000 unit) capsule 50 mcg PO DAILY ezetimibe 10 mg tablet 10 mg PO DAILY dicyclomine 20 mg tablet 20 mg PO DAILY PRN (Reason: abdominal pain) atorvastatin 80 mg tablet 80 mg PO DAILY metronidazole 500 mg tablet 500 mg PO TID 10 Days Qty: 30 0RF [place] [facility] [place] [facility]Provider Group, Orthopedics] - 3 days Referral Note: Right shoulder were injury. May need physical therapy MRI Clinical Impression: Muscle strain of right shoulder; Rotator cuff injury Work Connection [Outside] - 1 day Referral Note: Right shoulder work injury. Many physical therapy and MRI Clinical Impression: Muscle strain of right shoulder; Rotator cuff injury Stand Alone Forms: Work/School Release Interventions: ED Discharge Assessment Last Done: 11/30/24 12:35 Discharge Date/Time: 11/30/24 12:37 Print Language: Upper Sorbian
--- NOTE | 2024-11-30 12:13 | PC.NURSE ---
t medicated per JUL for 01/19 right shoulder pain
--- OUTSIDE RECORDS SUMMARY | 2024-11-30 12:32 | XMS_ITS | Encounter Summary ---
Demographics Address [address] [place] [address] Mobile Phone Home Phone Work Phone Preferred Language en Marital Status Unknown Christianity Affiliation Unknown Race Other Race Additional Race(s) White Ethnic Group Unknown Author Organization [employer] Address [address] [place] [address] Care Team Providers Care Computer Artist Name Role Phone Larissa Viveros NP Primary Care Provider [phone] Encounter Details Date Type Department Care Team (Late st Contact Info) Description 11/30/2024 Orders Only [facility] External Provider, [facility] Social History Tobacco Use Types Packs/Day Years Used Date Smoking Tobacco: Every Day Cigarettes Smokeless Tobacco: Never Comments:Just started again Alcohol Use Standard Drinks/Week Comments Never 0 (1 standard drink = 0.6 oz pur e alcohol) Alcohol Answer Date Recorded Frequency of Alcohol Consumption Not on file 12/22/2023 Average Number of Drinks Not on file 024 Frequency of Binge Drinking Not on file 12/10 Score 0 12/22/2023 Depression Answer Date Recorded Patient Health Questionnaire-9 Score 25 01/05/2024 Patient Health Questionnaire-9 Score 25 01/05/2024 Last PHQ-9: Questionnaire Data Not on file 0 01/05/2024 Housing Stability Answer Date Recorded What is your housing situation today? I have shereenvicki joseph 12/22/[address] you li ve. Do you have problems with any of the following? None of the above 12/22/2023 Food Insecurity Answer Date Recorded Within the past 12 months, y ou worried that your food would run out before you got money to buy more: Never True 12/22/2023 Within the past 12 months,th e food you bought just didn't last and you didn't have enough money to get more: Never True 04/2024 Transportation Answer Date Recorded In the past 12 months, has l ack of transportation kept you from medical appts, meetings, work or from getting things needed for daily living? No 12/22/2023 Utilities Answer Date Recorded In the past 12 months, has t he electric, gas, oil or water company threatened to shut off services in your home? No 12/22/2023 Depression Answer Date Recorded Patient Health Questionnaire-2 Score 6 01/05/2024 Internet Access Answer Date Recorded Internet Access Q1 Yes 01/09/2024 Internet Access Q2 Not on file 01/09/2024 Sex and Gender Information Value Date Recorded Sex Assigned at Male 03/11/2022 10:30 AM EDT Legal Sex Male 10:30 AM EDT Gender Identity Male 03/11/2022 10:30 AM EDT Sexual Orientation Straight 03/11/2022 10 :30 AM EDT documented as of this encounter Plan of Treatment Upcoming Encounters Date Type Department Care Team (Late st Contact Info) Description 01/26/2025 2:00 PM EDT Office Visit [facility] [address] [place] [address] Anderson, Anahi, OD [address] [place] [address] documented as of this encounter Procedures Procedure Name Priority Date/Time Associated Diagnosis Comments XR SHOULDER 2+ VIEWS RIGHT Routine 11/30/2024 10:01 AM EDT documented in this encounter Results * XR Shoulder 2+ Views Right (11/30/2024 10:01 AM EDT) Anatomical Region Laterality Modality Upper Extremities, Shoulder Right Radi ographic Imaging 11/30/2024 10:0 1 AM EDT Narrative 11/30/2024 11:10 AM EDT [facility] [address] [place] [address] XRay Report Signed Patient: Triston Quinn MR#: [id number] : 1980 Acct:[id number] Age/Sex: 44 / M ADM Date: 11/30/24 Loc: .ED Attending Dr: Ordering Physician: Generic ED Physician Date of Service: 11/30/24 Procedure(s): XR shoulder RT min 2V Accession Number(s): [id number] cc: Generic ED Physician; [facility] EXAMINATION: XR SHOULDER, RIGHT CLINICAL INFORMATION: right shoulder pain COMPARISON: September 02, 2018. TECHNIQUE: AP external rotation, Grashey, scapular Y, and axillary views of the right shoulder. FINDINGS: No acute cortical disruption or malalignment. No lytic or blastic lesions. No gross sclerosis along the articular surfaces. XR/XR shoulder RT min 2V IMPRESSION: Normal x-ray right shoulder. Electronically signed by: Giles Wyatt MD 11/30/2024 11:07 AM EDT Dictated By: Giles Sotelo MD Signed By: <Electronically signed by Giles Pfeiffer MD in OV> 11/30/24 1107 DD/ 1001 TD/TT: 11/30/24 1101 Physical Therapy Asst: Procedure Note Donotuseinterpreter, Image - 11/30/2024 [place] [id number] XRay Report Signed Patient: Triston Quinn EMR#: [id number] : 1980Acct:[id number] Age/Sex: 44 / MADM Date: 11/30/24 Loc: .ED Attending Dr: Ordering Physician: Generic ED Physician Date of Service: 11/30/24 Procedure(s): XR shoulder RT min 2V Accession Number(s): [id number] cc: Generic ED Physician; [facility] EXAMINATION: XR SHOULDER, RIGHT CLINICAL INFORMATION: right shoulder pain COMPARISON: September 02, 2018. TECHNIQUE: AP external rotation, Grashey, scapular Y, and axillary views of the right shoulder. FINDINGS: No acute cortical disruption or malalignment. No lytic or blastic lesions. No gross sclerosis along the articular surfaces. XR/XR shoulder RT min 2V IMPRESSION: Normal x-ray right shoulder. Electronically signed by: Giles Wyatt MD 11/30/2024 11:07 AM EDT RP Dictated By: Giles Sotelo MD Signed By: <Electronically signed by Giles Pfeiffer MDin OV> 11/30/24 1107 DD/ 1001 TD/TT: 11/30/24 1101 Physical Therapy Asst: [facility] External Provider IMG XR PROCEDURES Final Result documented in this encounter Visit Diagnoses Not on filedocumented in this encounter Additional Health Concerns Assessment Noted Time PHQ-9 Depression Total Score: 25 024 12:06 PM EDT documented as of this encounter Care Teams Computer Artist Relationship Specialty Start Date End Date Larissa Viveros NP [address] [place] [address] PCP - General Family Medicine 11/12/23 documented as of this encounter
[2024-11-30 12:35] VITALS: BP 150/75; PULSE 58; RESP 18; TEMP 36.6; O2SAT 98
== END 2024-11-30 12:37 | disposition home or self-care (01) ==
PROVIDERS: Emergency Provider Emergency Medicine
DX: S46.011A Strain of muscle(s) and tendon(s) of the rotator cuff of right shoulder, initial encounter (principal); X50.0XXA Overexertion from strenuous movement or load, initial encounter; M25.511 Pain in right shoulder; Y93.89 Activity, other specified; Y92.512 Supermarket, store or market as the place of occurrence of the external cause; Y99.0 Civilian activity done for income or pay
CPT/HCPCS: 73030; 96372; 99284; J1885

== ENCOUNTER 2024-12-30 13:47 | Inpatient (IN) | payer MEDICAID, SELFPAY ==
[2024-12-30] VITALS (14 sets, daily range): BP systolic 114–166; BP diastolic 46–106; PULSE 53–79; RESP 14–25; TEMP 36.6–37.1; O2SAT 94–98; BMI 55.1; BMI 56.9; BMI 55.3
--- NOTE | ~2024-12-30 | XR_ITS ---
EXAMINATION: XR CHEST CLINICAL INFORMATION: chest pain COMPARISON: September 23, 2023 TECHNIQUE: 2 views of the chest were obtained. FINDINGS: No significant abnormality is noted involving the heart, lungs, mediastinum, bony thorax or soft tissues. XR/XR chest 2V IMPRESSION: No acute disease Electronically signed by: Shiv Wolfe MD 12/30/2024 02:56 PM EDT RP
--- NOTE | ~2024-12-30 | CT_ITS ---
CLINICAL HISTORY: chest pain CT angiography chest with contrast. 3D Postprocessing. Comparison: None provided Findings: The heart size is normal. RV/LV ratio is normal. Unremarkable thoracic aorta and great vessels. No aneurysm. No pulmonary embolus to the proximal segmental level. More distal branches are not adequately assessed due to suboptimal opacification and contrast mixing artifact. The visualized thyroid and mediastinum are unremarkable. No consolidation or effusion. The visualized upper abdomen is unremarkable. No acute fractures. IMPRESSION: 1. No acute intrathoracic findings. 2. No pulmonary embolus to the proximal segmental level. More distal branches are not adequately assessed due to suboptimal opacification and contrast mixing artifact. This document has been electronically signed by: Jose Dave MD on 12/30/2024 20:47:40
--- NOTE | 2024-12-30 13:49 | ECG_ITS ---
Test Reason : cp Blood Pressure : */* mmHG Vent. Rate : 78 BPM Atrial Rate : 78 BPM P-R Int : 182 ms QRS Dur : 90 ms QT Int : 394 ms P-R-T Axes : 47 63 68 degrees QTcB Int : 449 ms Normal sinus rhythm Normal ECG When compared with ECG of 15-Dec-2023 17:55, Vent. rate has increased by 27 bpm Nonspecific T wave abnormality now evident in Lateral leads QT has lengthened Referred By: Lala Og Electronically Signed By: LETICIA ROMO MD
--- NOTE | 2024-12-30 13:55 | ED_ITS ---
HPI - General Adult General Chief complaint: Chest Pain Stated complaint: diff breathing rapid heart beat Time Seen by Provider: 12/30/24 14:05 Source: patient Mode of arrival: ambulatory Limitations: no limitations History of Present Illness ED Provider: HPI narrative: 44-year-old male presenting with sharp chest pain right-sided, left-sided radiating into his back, this is getting worse by lifting things at work, has been dealing with these pains and exertional dyspnea for the past 2 and half weeks, he also feels like he is short of breath, history of morbid obesity, sleep apnea, heavy marijuana and some tobacco user. Related Data Home Medications ?Medication ?Instructions ?Recorded ?Confirmed atorvastatin 80 mg tablet 80 mg PO DAILY 01/02/2101/01 cholecalciferol (vitamin D3) 50 50 mcg PO DAILY 10/17/22 mcg (2,000 unit) capsule dicyclomine 20 mg tablet 20 mg PO DAILY PRN abdominal pain 01/02/21 10/17/22 ezetimibe 10 mg tablet 10 mg PO DAILY 01/02/2101/01 cimetidine 200 mg tablet 200 mg PO BID 10/17/2210/17 cyclobenzaprine 5 mg tablet 5 mg PO TID 10/17/2210/17 lisinopril 10 mg tablet 10 mg PO DAILY 10/17/2201/01 psyllium husk 3.4 gram/5.4 gram 1 tsp PO DAILY 3 10/17/22 oral powder (Metamucil) sertraline 50 mg tablet 50 mg PO DAILY 10/17/2201/01 Previous Rx's ?Medication ?Instructions ?Recorded tramadol 50 mg tablet 50 mg PO Q6H PRN pain #20 ta bs 07/17/20 metronidazole 500 mg tablet 500 mg PO TID 10 days #30 tabs 06/29/21 bacitracin 500 unit/gram topical 1 appl topical BID #1 20 grams 12/23/21 ointment hydrocodone 5 mg-acetaminophen 325 1 tab PO Q8H PRN pa in, severe 3 12/23/21 mg tablet days #9 tabs ibuprofen 800 mg tablet 800 mg PO Q8H PRN pain #14 t abs 12/23/21 peg 3350-electrolytes 236 240 ml PO Q10M #4,000 mL 01/01 gram-22.74 gram-6.74 gram-5.86 gram solution cyclobenzaprine 10 mg tablet 10 mg PO TID PRN muscle s pasm #20 09/24/23 tabs lidocaine 5 % topical patch 1 patch topical DAILY #30 ea 09/24/23 naproxen 500 mg tablet 500 mg PO BID PRN pain #14 t abs 11/30/24 Allergies Allergy/AdvReac Type Severity Reaction Status Date / Time No Known Allergies (No Known Allergy Verified 12/30/24 13:57 Allergies*) Review of Systems 2 Constitutional: Constitutional: Reports as per [facility] Past Medical History Medical History Obstructive sleep apnea Anxiety Depression Hypercholesteremia Hypertension GERD (gastroesophageal reflux disease) Surgical History H/O colonoscopy H/O circumcision Family History Family History Mother Arterial stent thrombosis Maternal Grandmother Diabetes Dementia Father Lung cancer Social History Social History Household Members: Significant Other and Children Are you a primary reservoir caretaker to a significant other at home: No Do you presently have visiting nurse or other home services: No Alcohol intake: current Alcohol intake frequency: a few times a month Patient Tobacco Use Status: Never used Tobacco Smoked in Last 30 Days: No Use of substances other than those prescribed or required for medical reasons: No Substance Use Type: Marijuana Advance Directives: No Advance Directives Information Provided: Yes Do you have a plan to hurt others: No Plan Current occupational status: disabled Physical Exam ED Vital Signs: Vital Signs - 24 hr 12/30/24 13:54 12/30/24 15:23 12/30/24 15:27 Temperature 97.9 F Pulse Rate 79 66 77 Respiratory Rate 20 25 H Blood Pressure 163/79 H 166/72 H 166/72 H Pulse Oximetry 95 94 Oxygen Delivery Method Room Air Room Air 12/30/24 15:30 12/30/24 15:33 12/30/24 15:36 Temperature Pulse Rate 72 64 Respiratory Rate 20 20 Blood Pressure 134/81 114/66 Pulse Oximetry 94 Oxygen Delivery Method Room Air 12/30/24 15:53 12/30/24 16:28 12/30/24 16:51 Temperature 98.1 F Pulse Rate 66 56 62 Respiratory Rate 16 18 19 Blood Pressure 115/64 117/70 127/46 L Pulse Oximetry 94 94 96 Oxygen Delivery Method Room Air Room Air Room Air 12/30/24 16:58 12/30/24 17:08 12/30/24 17:18 Temperature Pulse Rate 62 70 64 Respiratory Rate 18 19 18 Blood Pressure 119/51 L 125/66 120/63 Pulse Oximetry 95 95 95 Oxygen Delivery Method Room Air Room Air Room Air BMI result Body Mass Index 56.9 Const Other: * Gen: ?Overall well-appearing patient, increased BMI * HEENT: PERRLA, EOMI, MMM, * Neck: Supple, no LAD * CV: RRR, no obvious murmurs appreciated, radial pulses +2 bilaterally, midsternal tenderness to the right upper chest * Resp: ?No wheezing rales rhonchi no stridor moving air well * Abd: ?Bowel sounds are present, no tenderness no rebound no rigidity * MSK: FROM, strength 5/5 all extremities, no lower extremity edema * Skin: Warm, dry, intact, * Neuro: ?Alert and oriented x3, moving upper and lower extremities symmetrically, no obvious facial asymmetry noted Course Course Course Narrative: This is a rapid medical exam performed by Irma Og NP: Additional HPI, ROS, PE not included below will be deferred to primary provider. Patient is a 44-year-old male with history of ERUM, GERD, HTN, hypercholesterolemia, anxiety and depression presenting with 2 weeks of chest pain radiating through to back lasting seconds to minutes. Worse with movement. [place] heart was racing at work which caused him to feel short of breath. Plan: EKG, labs, CXR Medications Administered Generic Name Dose Route Start Last Admin Trade Name Freq PRN Reason Stop Dose Admin Nitroglycerin 0.4 mg 12/30/24 15:18 12/30/24 15:36 Nitroglycerin 0.4 Mg Tab.Subl SUBLINGUAL 0.4 mg [id number] PRN Administration Chest Pain Discontinued Medications Generic Name Dose Route Start Last Admin Trade Name Freq PRN Reason Stop Dose Admin Aspirin 324 mg 12/30/24 15:18 12/30/24 15:25 Aspirin 81 Mg Tab.Chew PO 12/30/24 15:19 324 mg ONCE ONE Administration Iohexol 100 ml 12/30/24 16:14 12/30/24 16:14 Iohexol 350 Mg/Ml 100 Ml Infus..Btl IV 12/30/24 16:15 80 ml ONCE ONE Administration Morphine Sulfate 4 mg 12/30/24 15:18 12/30/24 15:30 Morphine Sulfate 4 Mg/Ml Cartridge IVPUSH 12/30/24 15:19 4 mg ONCE ONE Administration Protocol Medical Decision Making Medical Decision Making [facility] Narrative: Patient is presenting with chest pain, some dyspnea in the setting of obstructive sleep apnea, morbid obesity, we will work him up for ACS, CHF, does not appear to be in COPD or asthma exacerbation we did discuss his tobacco use and marijuana use at the levels that he is using right now, this is not severe chest pain of sudden intensity radiating to the back to suspect aortic dissection, chest x-ray to evaluate for pneumonia, mediastinal widening, or pneumothorax. 15:15 patient is developing chest pain, and his troponin came back at 03:44, initiating aspirin, nitroglycerin, will provide morphine and anticipate discussion with Cardiology I will repeat another ECG to make sure he does not have dynamic EKG changes 1523: repeat ECG with no ST changes 15:43 patient re-evaluated, he is beginning to feel better, his blood pressure improved with nitro and morphine, I will obtain CTA of the chest to evaluate for PE and dissection but mostly to rule out dissection before likely starting him on heparin I have also been in discussion with Dr. Barrera primarily whether he would heparinize if patient is asymptomatic after treatment or if patient can be admitted here or needs to be transferred 16:19 patient re-evaluated, he is chest pain-free after nitro x2, I also looked at his images in CT scanner, there was no obvious aortic flaps, no obvious saddle PE 17:16 patient continues to be chest pain-free, cardiac enzymes trending down we will update Cardiology and plan for admission unless CTA is positive for dissection etc. Dr. Barrera recommends Heparin and ok to admit here but I will await for a neg CTA prior to initiation. Differential Diagnosis Differential Diagnoses: The differential diagnosis associated with the presentation includes (CHF, COPD exacerbation, pneumonia, pneumothorax, ACS, PE,) Admission/Observation Consideration of admission/observation: Escalation of care including admission/observation considered Consult Healthcare Provider Management of the patient was discussed with: [employer]ing Permit Agent (Dr. Barrera) Lab Data MDM Lab Attestation statement: I reviewed the patient's lab results. 12/30/24 14:38 12/30/24 14:38 Labs: Lab Results 12/30/24 12/30/24 Range/Units 14:38 16:33 WBC 8.6 (4.8-10.8) X10*3/uL RBC 5.10 (4.60-5.80) X10*6/uL Hgb 14.2 (14.0-18.0) g/dl Hct 42.5 (42.0-52.0) % MCV 83.3 (80.0-98.0) fL MCH 27.8 (27.0-33.0) pg MCHC 33.4 (31.0-36.0) g/dl RDW 13.0 (11.0-16.0) % Plt Count 198 (160-400) X10*3/uL MPV 11.7 (9.4-12.4) fL Immature Gran % (Auto) 0.2 (0.0-0.4) % Neut % (Auto) 63.4 (45-73) % Lymph % (Auto) 28.9 (20-40) % [place] % (Auto) 5.8 (2-11) % Eos % (Auto) 1.5 (0-4) % Baso % (Auto) 0.2 (0-2) % Lymph # (Auto) 2.5 (1.2-4.9) X10*3/uL [place] # (Auto) 0.5 (0.1-1.2) X10*3/uL Eos # (Auto) 0.1 (0.0-0.4) X10*3/uL Baso # (Auto) 0.0 (0.0-0.2) X10*3/uL Abs Immat Gran (auto) 0.02 (0.00-0.03) X10*3/uL Absolute Neuts (auto) 5.4 (2.0-8.3) x10*3/uL Absolute Nucleated RBC 0.000 (0.0-0.012) X10*3/uL Nucleated RBC % (auto) 0.0 (0.0-0.2) /100WBC PT 12.3 (10.9-12.4) SEC INR 1.1 (0.9-1.1) Sodium 141 (135-145) mmol/L Potassium 3.8 (3.3-5.1) mmol/L Chloride 108 (96-108) mmol/L Carbon Dioxide 25 (22-29) mmol/L Anion Gap 12 (12-20) BUN 14 (9-16) mg/dL Creatinine 0.73 (0.5-1.4) mg/dL Estim Creat Clear Calc 199.1 Estimated GFR > 60 Random Glucose 179 H (60-115) mg/dL Calcium 9.5 (8.4-10.2) mg/dL Magnesium 2.1 (1.6-2.6) mg/dL Total Bilirubin 0.3 (0.0-1.0) mg/dL AST 34 (5-37) U/L ALT 51 H (0-40) U/L Alkaline Phosphatase 69 (39-117) U/L Troponin I High Sens 344.3 H* D 295.1 H* (<3.5-35.0) ng/L B-Natriuretic Peptide 11 (<100) pg/mL Total Protein 7.4 (6.5-8.0) g/dL Albumin 4.1 (3.5-5.0) g/dL TSH 0.91 (0.32-4.0) uIU/mL Independent Interpretation I performed an independent interpretation of an: EKG (78 beats per minute otherwise normal ECG without dysrhythmia, AV michelle blocks or ST-T changes to suspect underlying ACS, my independent interpretation) and Plain X-Ray (No pneumothorax, no mediastinal widening) Interpretation: 1523: [address]-T changes Radiology Impression Discussion of test interpretation with radiology: I have reviewed the radiologist's reading. Chronic Conditions Patient?s care impacted by: Hypertension Critical Care Time Critical Care Time Critical Care Time: Yes Total Critical Care Time: 75 Attestation: Time is exclusive of separately billable procedures. Time includes: direct patient care, patient reassessment, coordination of patient care, interpretation of data (laboratory data, pulse oximetry, arterial blood gases and chest xrays), review of patient's medical records, medical consultation and documentation of patient care. Procedures excluded from critical care time: central intravenous line placement and electrocardiography. Discharge Plan Discharge Clinical Impression: Non-ST elevation [place] (NSTEMI) Prescriptions: No Action peg 3350-electrolytes 236-22.74-6.74 -5.86 gram recon soln 240 ml PO Q10M Qty: 4000 0RF Rx Instructions: follow instructions provided by [facility]- until fecal effluent is clear tramadol 50 mg tablet 50 mg PO Q6H PRN (Reason: pain) Qty: 20 0RF bacitracin 500 unit/gram ointment 1 appl topical BID Qty: 120 1RF ibuprofen 800 mg tablet 800 mg PO Q8H PRN (Reason: pain) Qty: 14 0RF hydrocodone-acetaminophen 5-325 mg tablet 1 tab PO Q8H PRN (Reason: pain, severe) 3 Days Qty: 9 0RF Rx Instructions: Partial Fill upon patient request. sertraline 50 mg Tablet 50 mg PO DAILY cimetidine 200 mg Tablet 200 mg PO BID Rx Instructions: administer with meals lisinopril 10 mg Tablet 10 mg PO DAILY cyclobenzaprine 5 mg Tablet 5 mg PO TID Metamucil 3.4 gram/5.4 gram Powder 1 tsp PO DAILY Rx Instructions: mix into at least 4 oz water or juice before administering cyclobenzaprine 10 mg tablet 10 mg PO TID PRN (Reason: muscle spasm) Qty: 20 0RF lidocaine 5 % adhesive patch,medicated 1 patch topical DAILY Qty: 30 0RF Rx Instructions: leave on most painful area for up to 12 hrs naproxen 500 mg tablet 500 mg PO BID PRN (Reason: pain) Qty: 14 0RF cholecalciferol (vitamin D3) 50 mcg (2,000 unit) capsule 50 mcg PO DAILY ezetimibe 10 mg tablet 10 mg PO DAILY dicyclomine 20 mg tablet 20 mg PO DAILY PRN (Reason: abdominal pain) atorvastatin 80 mg tablet 80 mg PO DAILY metronidazole 500 mg tablet 500 mg PO TID 10 Days Qty: 30 0RF Print Language: Gabonese
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
[2024-12-30 14:47] LABS: Hematocrit 42.5 % (42.0-52.0); Hemoglobin 14.2 g/dl (14.0-18.0); Imm Gran Abs Auto 0.02 X10*3/uL (0.00-0.03); Imm Gran Pct Auto 0.2 % (0.0-0.4); Lymphocytes Absolute Auto 2.5 X10*3/uL (1.2-4.9); MANUAL DIFF FLAG NO; Mean Corpuscular HGB Conc 33.4 g/dl (31.0-36.0); Mean Corpuscular Hemoglobin 27.8 pg (27.0-33.0); Mean Corpuscular Volume 83.3 fL (80.0-98.0); NRBC Abs Auto 0.000 X10*3/uL (0.0-0.012); NRBC Pct Auto 0.0 /100WBC (0.0-0.2); Platelet Count 198 X10*3/uL (160-400); Red Blood Count 5.10 X10*6/uL (4.60-5.80); White Blood Count 8.6 X10*3/uL (4.8-10.8)
[2024-12-30 15:00] LABS: INTERNATIONAL NORM RATIO 1.1 (0.9-1.1); Prothrombin Time 12.3 SEC (10.9-12.4)
[2024-12-30 15:08] LABS: Alanine Aminotransferase 51 U/L (0-40); Albumin Level 4.1 g/dL (3.5-5.0); Alkaline Phosphatase 69 U/L (39-117); Anion Gap 12 (12-20); Aspartate Amino Transferase 34 U/L (5-37); Blood Urea Nitrogen 14 mg/dL (9-16); Calcium 9.5 mg/dL (8.4-10.2); Carbon Dioxide 25 mmol/L (22-29); Chloride 108 mmol/L (96-108); Creatinine Clr Calc Pharmacy 199.1; Estimated Glomerular Filt Rate > 60; Magnesium 2.1 mg/dL (1.6-2.6); Potassium 3.8 mmol/L (3.3-5.1); Sodium 141 mmol/L (135-145); Total Protein 7.4 g/dL (6.5-8.0)
[2024-12-30 15:12] LABS: B Type Natriuretic Peptide 11 pg/mL (<100)
[2024-12-30 15:18] LABS: Troponin-I High Sensitivity 344.3 ng/L (<3.5-35.0)
--- NOTE | 2024-12-30 15:18 | ECG_ITS ---
Test Reason : CP REPEAT Blood Pressure : */* mmHG Vent. Rate : 63 BPM Atrial Rate : 63 BPM P-R Int : 186 ms QRS Dur : 88 ms QT Int : 400 ms P-R-T Axes : 43 72 74 degrees QTcB Int : 409 ms Normal sinus rhythm Normal ECG When compared with ECG of 30-Dec-2024 13:53, No significant change was found Referred By: Gamaliel Posey Electronically Signed By: LETICIA ROMO MD
[2024-12-30] MEDS: iohexoL 350 MG/ML 100 ML INFUS..BTL IV (16:14)
[2024-12-30 17:05] LABS: Troponin-I High Sensitivity 295.1 ng/L (<3.5-35.0)
[2024-12-30 19:01] LABS: PTT Heparin Drip 31.0 SEC (53-77.9)
[2024-12-30 20:39] LABS: Hematocrit 40.3 % (42.0-52.0); Hemoglobin 13.4 g/dl (14.0-18.0); Mean Corpuscular HGB Conc 33.3 g/dl (31.0-36.0); Mean Corpuscular Hemoglobin 27.7 pg (27.0-33.0); Mean Corpuscular Volume 83.3 fL (80.0-98.0); NRBC Abs Auto 0.000 X10*3/uL (0.0-0.012); NRBC Pct Auto 0.0 /100WBC (0.0-0.2); Platelet Count 195 X10*3/uL (160-400); Red Blood Count 4.84 X10*6/uL (4.60-5.80); White Blood Count 10.0 X10*3/uL (4.8-10.8)
[2024-12-30 20:45] LABS: INTERNATIONAL NORM RATIO 1.0 (0.9-1.1); Prothrombin Time 11.4 SEC (10.9-12.4)
[2024-12-30 20:48] LABS: PTT Heparin Drip 30.8 SEC (53-77.9)
--- NOTE | 2024-12-30 21:05 | HE.PHANOTE ---
Addendum entered by Robyn Prince [facility] 12/30/24 21:50: Times were entered in error, updated: Pharmacy order verification for heparin drip was delayed by approximately 30 minutes due to an outstanding weight update from RN. A request for this update was submitted via [employer] text [phone], and followed up with a phone message to RN at 2034. A response was received via [employer] text at [phone]; however, the necessary update was not entered into the system to enable pharmacy verification of heparin drip until 2099. Heparin order was not able to be updated and verified until 2099. Original Note: Re: Heparin Order verification for heparin was delayed by approximately 30 minutes due to an outstanding update from RN. A request for this update was submitted via [employer] and followed up with a phone message to RN at [phone]. A response was received at [phone]; however, the necessary update was not entered into the system to enable verification until 2299. Order was not able to be updated and verified until 2299.
[2024-12-30] MEDS: Heparin Sodium,Porcine/1/2NS 25,000 UNIT/250 ML IV.SOLN 10 UNIT IVCONT (21:18)
--- NOTE | 2024-12-30 21:20 | PC.NURSE ---
Heparin drip started and verified by LESIA Hope
--- NOTE | 2024-12-30 21:26 | PHA.MEDREC ---
Addendum entered by Daja Garner RPh 12/30/24 21:27: Reviewed by [facility] Original Note: Pharmacy Consult ? Medication Reconciliation Pharmacy has completed the medication reconciliation. Spoke with pt and he confirmed he takes no prescription medications at this time and is only taking Tylenol 500mg 2 tabs prn migraine/pain.
--- NOTE | 2024-12-30 21:49 | P.HPHOSP_ITS ---
History of Present Illness Date of Service: 12/30/24 Chief Complaint: Chest pain This is a 44-year-old male with pertinent history of hypertension noncompliant with medications, ERUM on CPAP who presents to the emergency department for evaluation of chest pain. Patient states his symptoms started 2 weeks prior to presentation. He has been having intermittent chest pain which has been progressive over the last 2 weeks. The chest pain is midsternal and worse with exertion but does not relieve with rest. It intermittently radiates to his right arm and back. Sometimes the pain is worse when he takes a deep breath. Admits marijuana use and tobacco use. No history of CAD in the past. States he previously used to take antihypertensives but has not seen a PCP in a while. Is compliant with CPAP at home. No fever, chills, palpitations, abdominal pain, changes in urinary or bowel habits. In the emergency department, troponin was found to be elevated, Cardiology consulted and patient was initiated on IV heparin. Review of Systems 2 Constitutional: Constitutional: Reports fatigue and Reports malaise Cardiovascular: Cardiovascular: Reports chest pain, Reports chest pain at rest and Reports chest pain with activity Respiratory: Respiratory: Reports no additional respiratory complaints Gastrointestinal: Gastrointestinal: Reports no additional gastrointestinal complaints Genitourinary: Genitourinary: Reports no additional male genitourinary complaints Endocrine: Endocrine: Reports fatigue PMFSH Medical History Obstructive sleep apnea Anxiety Depression Hypercholesteremia Hypertension GERD (gastroesophageal reflux disease) Family History Mother Arterial stent thrombosis Maternal Grandmother Diabetes Dementia Father Lung cancer Surgical History H/O colonoscopy H/O circumcision Social History Household Members: Significant Other and Children Are you a primary nurse behavioral health care to a significant other at home: No Do you presently have visiting nurse or other home services: No Alcohol intake: current Alcohol intake frequency: a few times a month Patient Tobacco Use Status: Never used Tobacco Smoked in Last 30 Days: No Use of substances other than those prescribed or required for medical reasons: No Substance Use Type: Marijuana Advance Directives: No Advance Directives Information Provided: Yes Do you have a plan to hurt others: No Plan Current occupational status: disabled Meds Allergies Allergy/AdvReac Type Severity Reaction Status Date / Time No Known Allergies (No Known Allergy Verified 12/30/24 13:57 Allergies*) Active Medications: Current Medications Heparin Sodium (Porcine) (Heparin Sodium,Porcine 5,000 Unit/Ml Vial) 6,600 unit 40 unit/kg (6600 unit) IVPUSH PROTOCOL BOLUS PRN; Protocol PRN Reason: 40 unit/kg - Heparin Protocol Heparin Sodium (Porcine) (Heparin Sodium,Porcine 5,000 Unit/Ml Vial) 10,000 unit IVPUSH PROTOCOL BOLUS PRN; Protocol PRN Reason: 80 unit/kg - Heparin Protocol Heparin Sodium/Sodium Chloride (Heparin Sodium,Porcine/1/2ns) 25,000 unit in 250 mls @ 0 mls/hr IVCONT .Q0M DANIEL; Protocol Last Admin: 12/30/24 21:18 Dose: 6.06 units/kg/hr, 10 mls/hr Nitroglycerin (Nitroglycerin 0.4 Mg Tab.Subl) 0.4 mg SUBLINGUAL Q5MX3 PRN PRN Reason: Chest Pain Last Admin: 12/30/24 15:36 Dose: 0.4 mg Home Medications ?Medication ?Instructions ?Recorded ?Confirmed ?Last Taken ?Type acetaminophen 500 mg tablet 1,000 mg PO Q6H PRN Migrai ne 12/30/24 12/30/24 Unknown History Headache/Pain Physical Exam 2 Vital Signs and Narrative: Vital Signs: Last Vital Signs Temp 98.7 F 12/30/24 19:11 Pulse 53 12/30/24 19:11 Resp 15 12/30/24 19:11 BP 138/71 12/30/24 19:11 Pulse Ox 97 12/30/24 19:11 O2 Del Method Room Air 12/30/24 19:11 BMI result Body Mass Index 55.3 Const: Other: Middle-aged male lying in bed in no distress Neck supple, no JVD Regular rate and rhythm, S1-S2 heard Regular breath sounds bilaterally, no wheezing or crackles appreciated Abdomen soft nontender, no guarding, no rigidity Patient is awake, alert and oriented to self, place, time and person ; no focal motor deficit Psych: Normal mood No pedal edema Results Labs 12/30/24 20:35 12/30/24 14:38 Labs: Laboratory Results - last 24 hr 12/30/24 12/30/24 12/30/24 14:38 18:30 20:35 MCV 83.3 83.3 MCH 27.8 27.7 MCHC 33.4 33.3 RDW 13.0 13.1 Plt Count 198 195 MPV 11.7 11.7 Immature Gran % (Auto) 0.2 Neut % (Auto) 63.4 Lymph % (Auto) 28.9 [place] % (Auto) 5.8 Eos % (Auto) 1.5 Baso % (Auto) 0.2 Lymph # (Auto) 2.5 [place] # (Auto) 0.5 Eos # (Auto) 0.1 Baso # (Auto) 0.0 Abs Immat Gran (auto) 0.02 Absolute Neuts (auto) 5.4 Absolute Nucleated RBC 0.000 0.000 Nucleated RBC % (auto) 0.0 0.0 PT 12.3 11.4 INR 1.1 1.0 aPTT Heparin Protocol 31.0 L 30.8 L Anion Gap 12 Estim Creat Clear Calc 199.1 Estimated GFR > 60 Random Glucose 179 H Calcium 9.5 Magnesium 2.1 Total Bilirubin 0.3 AST 34 ALT 51 H Alkaline Phosphatase 69 B-Natriuretic Peptide 11 Total Protein 7.4 Albumin 4.1 TSH 0.91 Imaging Radiologist's Impressions: Impressions Chest X-Ray 12/30/24 13:54 IMPRESSION: No acute disease Electronically signed by: Shiv Wolfe MD 12/30/2024 02:56 PM EDT Assessment and Plan (1) Non-ST elevation NV (NSTEMI): Status: Acute Plan This is a 44-year-old male with pertinent history of hypertension noncompliant with medications, ERUM on CPAP who presents to the emergency department for evaluation of chest pain. #. NSTEMI: Will admit patient with cardiac monitoring. Initiated IV heparin in the ER as per cardiology recommendations. Patient given aspirin and statin in the ER. Defer beta-vicente due to low heart rate. Will repeat troponin and obtain echocardiogram. #. ERUM: Continue CPAP at bedtime #. Hypertension: Stopped taking antihypertensives as he has not seen a PCP in a long time #. Super morbid obesity: Weight loss recommended DVT prophylaxis: IV heparin Full code Admit as inpatient and will require two night minimum hospital stay for IV heparin (as above), which is not possible in a lesser acute setting. Quality Stroke Does the patient have a stroke diagnosis?: No VTE Prior VTE?: No VTE Risk Level:: Medical - moderate - high VTE Device Contraindication: Treatment Not Indicated VTE Drug Contraindication: N/A - Med Ordered
[2024-12-31] VITALS (8 sets, daily range): BP systolic 115–165; BP diastolic 64–97; PULSE 51–63; RESP 14–20; TEMP 36.2–37; O2SAT 93–96; BMI 55.7
--- NOTE | 2024-12-31 02:34 | PC.NURSE ---
pt taken to CT Scan
--- NOTE | 2024-12-31 02:35 | PC.NURSE ---
pt sleeping, no sign of distress.
[2024-12-31 03:31] LABS: Hematocrit 40.3 % (42.0-52.0); Hemoglobin 13.5 g/dl (14.0-18.0); Mean Corpuscular HGB Conc 33.5 g/dl (31.0-36.0); Mean Corpuscular Hemoglobin 27.8 pg (27.0-33.0); Mean Corpuscular Volume 82.9 fL (80.0-98.0); NRBC Abs Auto 0.000 X10*3/uL (0.0-0.012); NRBC Pct Auto 0.0 /100WBC (0.0-0.2); Platelet Count 192 X10*3/uL (160-400); Red Blood Count 4.86 X10*6/uL (4.60-5.80); White Blood Count 8.4 X10*3/uL (4.8-10.8)
[2024-12-31 03:41] LABS: INTERNATIONAL NORM RATIO 1.0 (0.9-1.1); Prothrombin Time 11.9 SEC (10.9-12.4)
[2024-12-31 03:43] LABS: PTT Heparin Drip 37.7 SEC (53-77.9)
[2024-12-31 03:47] LABS: Anion Gap 14 (12-20); Blood Urea Nitrogen 11 mg/dL (9-16); Calcium 8.8 mg/dL (8.4-10.2); Carbon Dioxide 24 mmol/L (22-29); Chloride 108 mmol/L (96-108); Creatinine Clr Calc Pharmacy 227.6; Estimated Glomerular Filt Rate > 60; Potassium 4.1 mmol/L (3.3-5.1); Sodium 142 mmol/L (135-145)
[2024-12-31 04:03] LABS: Troponin-I High Sensitivity 407.2 ng/L (<3.5-35.0)
--- NOTE | 2024-12-31 04:04 | PC.NURSE ---
Heparin dose adjusted with LESIA Shepard, Dr[facility] trop of 407.2
[2024-12-31] MEDS: 0.9 % Sodium Chloride Flush 3 ML SYRINGE IVFLUSH ×2 (05:36→15:33)
--- NOTE | 2024-12-31 05:42 | PC.NURSE ---
pt sleeping, no sign of distress.
--- NOTE | 2024-12-31 07:00 | CA_ITS ---
Transthoracic Echocardiogram Patient (Last, First, Middle): Triston Quinn E Gender: Male Date of : 1980 Age: 44 Procedure Date: 12/31/2024 Procedure Type: Transthoracic Echocardiogram Location: ER Height: 172.72 cm Weight: 164.66 kg BSA: 2.63 m2 Heart Rate: 51 bpm BP: 121 / 73 mmHg Trim Operator: SB Referring MD: Margret Stover MD Rural Route Carrier: Berto Barrera MD Symptoms: NSTEMI Study Quality: Technically Difficult due to body habitus ECG Rhythm: Bradycardia Conclusions: - 1. Technically limited study due to body habitus 2. Normal LV ejection fraction 55-60% with possible wall motion abnormalities 3. Cardiac valvular Dopplers within normal limits Findings Procedure Information Contrast agent, definity, is being given per protocol without apparent complications. The quality of the study was despite the use of contrast and endocardial definition remains poor. The study quality is limited by patients body habitus. Left Ventricle The left ventricle was not well visualized. Normal left ventricular cavity size. There is normal left ventricular wall thickness. The left ventricular systolic function is normal. The visually estimated ejection fraction is between 55-60%. Spectral Doppler is indicative of a normal filling pattern. There is mild septal asymmetric hypertrophy. difficult to assess wall motion although basal inferior, basal inferoseptal and basal inferolateral wall appear to be hypokinetic Right Ventricle The right ventricle was not well visualized. Atria The left atrium was not well visualized. Interatrial shunt cannot be excluded. The right atrium was not well visualized. Aortic Valve The aortic valve was not well visualized. There is no aortic valve stenosis. There is no aortic valve regurgitation. Mitral Valve The mitral valve was not well visualized. There is trace mitral valve regurgitation. There is no mitral valve stenosis. Pulmonic Valve The pulmonic valve was not well visualized. Tricuspid Valve The tricuspid valve was not well visualized. Tricuspid regurgitation envelope is inadequate for calculation of right ventricular systolic pressure. Mildly elevated right atrial pressure. Great Vessels The aorta was not well visualized. The pulmonary artery was not well visualized. Venous The inferior vena cava is mildly dilated and collapses greater than 50% with inspiration. Pericardium/Pleural The pericardium was not well visualized. Measurements 2D Linear Measurements IVSd: 1.39 0.6-0.9/0.6-1.0 cm LVIDd: 5.85 3.9-5.3/4.2-5.9 cm LVIDd Index: 2.22 2.4-3.2/2.2-3.1 cm/m2 LVIDs: 4.22 2.0-3.6 cm LVPWd: 1.01 0.7-1.1 cm Ao Root: 3.60 2.1-3.5 cm LV Mass: 375.77 67-162/88-224 g LV Mass Index: 142.88 43-95/49-115 g/m2 LVOT Diam: 2.50 3.0+(-)1.3 cm 2D Systolic Function EF 2C: 53.20 >55% Mitral Valve MV Pk E: 0.94 MV PK A: 0.62 MV Decel Time: 228.00 E/A: 1.50 PHT: 67.00 MVA PHT: 3.28 Decel [place]: 4.11 Aortic Valve AoV Pk Tee: 0.80 AoV Pk Grad: 3.00 LVOT LVOT Pk Tee: 0.66 LVOT Mn Tee: 0.42 LVOT VTI: 0.12 LVOT Pk Grad: 2.00 LVOT Mn Grad: 1.00 LVOT Diam: 2.50 LVOT Area: 4.91 Diastolic Function MV Pk E: 0.94 MV Pk A: 0.62 E/A: 1.50 Tricuspid Valve RA Press: 8.00 Great Vessels Aorta Ao Root-2D: 3.60 2.0-3.7 cm Ao Asc: 3.30 2.1-3.4 cm Pulmonary Valve PV Pk Tee: 1.19 Peak PV Grad: 6.00 Updated in Other Vendor System with Status of Final Berto Barrera MD electronically signed on 12/31/2024 1:27:00 PM with status of Final
--- NOTE | 2024-12-31 09:38 | P.CONCA_ITS ---
History of Present Illness History of Present Illness Date of Service: 12/31/24 Requesting physician: Mauri Torres Consult reason: other ( NSTEMI) Chief complaint: chest pain Narrative: I was consulted to see Triston in cardiology consultation today for elevated troponins. patient is a 44-year-old male with morbid obesity with no other significant vascular risk factors such as diabetes hypertension currently not on any long-acting medications except for Tylenol as needed for migraine headaches. Patient says that he started having chest pain about 10 days ago, prior Friday while he was coming back from work. He describes this pain as a sharp pressure which was severe associated with shortness of breath. He then decided come to the emergency room here and was Told to go to [facility] ED. He did go to [facility] ED and was complaining of chest pain however he said he waited 4-5 hours without being seen any left without being seen. He said the pain lasted for about hour and half. However following 3 days he continued to have on and off chest discomfort which is not always clearly exertional related. 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 Symptoms then subsided and he did not pay much attention to it till yesterday when he was at work and suddenly developed significant similar chest pain which then prompted him to come to the emergency room. When he came to the emergency room he describes the chest pain in his sharp pressure in the lower left inframammary back along with rapid heart rate and when his heart rate would get rapid sister and he was given 2 sublingual nitroglycerin and says symptoms rapidly improved. His initial troponin was elevated and there was a concern for aortic dissection given his type of chest pain and there was a CTA of chest done which did not show any evidence of aortic dissection or pulmonary embolism. His EKGs was nonischemic showing normal sinus rhythm with Mibi subtle J-point depression in the initially EKGs. Subsequent EKGs within normal limits. He has 2nd troponin downtrending to 200 in his 3rd troponin than up trending again to 400. He continues to have on and off chest discomfort which comes in waves but he is not as severe. He was started on IV heparin drip yesterday was given aspirin and high-intensity statin therapy. He also received some morphine. He had a bedside echocardiogram done and because of his body habitus the study is limited but possibly shows basal inferior and basal inferolateral hypokinesis with preserved. patient is very concerned about this chest pain. He has strong family history of premature coronary artery disease in his mother who had missed heart event in her early 50s. Review of Systems 2 Constitutional: Constitutional: Reports no additional constitutional complaints Eyes: Eyes: Reports no additional eye complaints Cardiovascular: Cardiovascular: Reports chest pain at rest, Reports chest pain with activity, Denies leg edema, Denies lightheadedness, Reports palpitations and Reports dyspnea Respiratory: Respiratory: Reports no additional respiratory complaints and Reports dyspnea Gastrointestinal: Gastrointestinal: Reports no additional gastrointestinal complaints Genitourinary: Genitourinary: Reports no additional male genitourinary complaints Musculoskeletal: Musculoskeletal: Reports no additional musculoskeletal complaints Integumentary/Breasts: Skin/Breast: Reports system reviewed and no additional complaints, except as docu Neurologic: Reports system reviewed and no additional complaints, except as documented Psychiatric: Psychiatric: Reports no additional psychiatric complaints Endocrine: Endocrine: Reports no additional endocrine complaints and Reports palpitations Hematologic/Lymphatic: Hematologic/Lymphatic: Reports no additional hematologic/lymphatic complaints [facility] Past Medical History Medical History Obstructive sleep apnea Anxiety Depression Hypercholesteremia Hypertension GERD (gastroesophageal reflux disease) Family History Family History Mother Arterial stent thrombosis Maternal Grandmother Diabetes Dementia Father Lung cancer Surgical History Surgical History H/O colonoscopy H/O circumcision Social History Social History Household Members: Significant Other and Children Are you a primary day care attendant to a significant other at home: No Do you presently have visiting nurse or other home services: No Alcohol intake: current Alcohol intake frequency: a few times a month Patient Tobacco Use Status: Never used Tobacco Smoked in Last 30 Days: No Use of substances other than those prescribed or required for medical reasons: No Substance Use Type: Marijuana Advance Directives: No Advance Directives Information Provided: Yes Do you have a plan to hurt others: No Plan Current occupational status: disabled Meds Allergies Allergy/AdvReac Type Severity Reaction Status Date / Time No Known Allergies (No Known Allergy Verified 12/30/24 13:57 Allergies*) Active Medications: Current Medications Acetaminophen (Acetaminophen 325 Mg Tablet) 650 mg PO Q6H PRN PRN Reason: Pain, Mild 1-3,fever,headache Calcium Carbonate (Calcium Carbonate 750 Mg Tab.Chew) 750 mg PO Q4H PRN PRN Reason: Heartburn Heparin Sodium (Porcine) (Heparin Sodium,Porcine 5,000 Unit/Ml Vial) 6,600 unit 40 unit/kg (6600 unit) IVPUSH PROTOCOL BOLUS PRN; Protocol PRN Reason: 40 unit/kg - Heparin Protocol Last Admin: 12/31/24 03:56 Dose: 6,600 unit Heparin Sodium (Porcine) (Heparin Sodium,Porcine 5,000 Unit/Ml Vial) 10,000 unit IVPUSH PROTOCOL BOLUS PRN; Protocol PRN Reason: 80 unit/kg - Heparin Protocol Heparin Sodium/Sodium Chloride (Heparin Sodium,Porcine/1/2ns) 25,000 unit in 250 mls @ 0 mls/hr IVCONT .Q0M DANIEL; Protocol Last Titration: 12/31/24 03:57 Dose: 8.061 units/kg/hr, 13.3 mls/hr Magnesium Hydroxide (Milk Of Magnesia 30 Ml Oral.Susp) 30 ml PO DAILY PRN PRN Reason: Constipation Melatonin (Melatonin 3 Mg Tablet) 6 mg PO BEDTIME PRN PRN Reason: Insomnia Nitroglycerin (Nitroglycerin 0.4 Mg Tab.Subl) 0.4 mg SUBLINGUAL Q5MX3 PRN PRN Reason: Chest Pain Last Admin: 12/30/24 15:36 Dose: 0.4 mg Nitroglycerin (Nitroglycerin 0.4 Mg Tab.Subl) 0.4 mg SUBLINGUAL Q5MX3 PRN PRN Reason: Chest Pain Nitroglycerin (Nitroglycerin 2 % Oint 1 Gm Packet) 0.5 inch TRANSDERMA RQ6H WHILE AWAKE [facility] Ondansetron HCl (Ondansetron Hcl 4 Mg/2 Ml Vial) 4 mg IVPUSH Q8H PRN PRN Reason: Nausea and Vomiting Sodium Chloride (0.9 % Sodium Chloride Flush 3 Ml Syringe) 3 ml IVFLUSH QSHIFT [facility] Last Admin: 12/31/24 09:17 Dose: Not Given Home Medications ?Medication ?Instructions ?Recorded ?Confirmed ?Last Taken ?Type acetaminophen 500 mg tablet 1,000 mg PO Q6H PRN Migrai ne 12/30/24 12/30/24 Unknown History Headache/Pain Physical Exam 2 Vital Signs: Vital Signs: Last Vital Signs Temp 97.4 F 12/31/24 08:04 Pulse 54 12/31/24 08:04 Resp 14 12/31/24 08:04 BP 121/73 12/31/24 08:04 Pulse Ox 93 12/31/24 08:04 O2 Del Method Room Air 12/31/24 08:04 BMI result Body Mass Index 55.3 Const: General: cooperative, comfortable, alert, awake and anxious N utritional Appearance: obese morbidly obese Orientation/consciousness: p atient oriented x3 Limitations: no limitations HEENT: Head: Yes normocephalic and Yes atraumatic Neck: Neck: Yes trachea midline, Yes supple and Yes no JVD Chest: Chest palpation & inspection: normal inspection of the chest and tenderness xiphoid process Resp: Effort & Inspection: normal respiratory effort Auscultation: clear to auscultation bilaterally Cardio: Jugular venous distension: no JVD Rate: regular rate Rhythm: r egular rhythm Heart sounds: S1 normal heart sound present, S2 normal heart sound present, no click, no gallops, no murmurs and no rubs Skin: General skin exam: no rashes or lesions noted Neuro: General: patient oriented x3 and no focal motor deficits Extrem: General: Yes no clubbing, cyanosis or edema Psych: Affect: Anxious affect present Objective Labs and Meds 12/31/24 03:25 12/31/24 03:25 Lab results: Laboratory Results - last 24 hr 12/30/24 12/30/24 12/30/24 14:38 16:33 18:30 WBC 8.6 RBC 5.10 Hgb 14.2 Hct 42.5 MCV 83.3 MCH 27.8 MCHC 33.4 RDW 13.0 Plt Count 198 MPV 11.7 Immature Gran % (Auto) 0.2 Neut % (Auto) 63.4 Lymph % (Auto) 28.9 [place] % (Auto) 5.8 Eos % (Auto) 1.5 Baso % (Auto) 0.2 Lymph # (Auto) 2.5 [place] # (Auto) 0.5 Eos # (Auto) 0.1 Baso # (Auto) 0.0 Abs Immat Gran (auto) 0.02 Absolute Neuts (auto) 5.4 Absolute Nucleated RBC 0.000 Nucleated RBC % (auto) 0.0 PT 12.3 INR 1.1 aPTT Heparin Protocol 31.0 L Sodium 141 Potassium 3.8 Chloride 108 Carbon Dioxide 25 Anion Gap 12 BUN 14 Creatinine 0.73 Estim Creat Clear Calc 199.1 Estimated GFR > 60 Random Glucose 179 H Calcium 9.5 Magnesium 2.1 Total Bilirubin 0.3 AST 34 ALT 51 H Alkaline Phosphatase 69 Troponin I High Sens 344.3 H* D 295.1 H* B-Natriuretic Peptide 11 Total Protein 7.4 Albumin 4.1 TSH 0.91 12/30/24 12/31/24 20:35 03:25 WBC 10.0 8.4 RBC 4.84 4.86 Hgb 13.4 L 13.5 L Hct 40.3 L 40.3 L MCV 83.3 82.9 MCH 27.7 27.8 MCHC 33.3 33.5 RDW 13.1 13.2 Plt Count 195 192 MPV 11.7 11.8 Immature Gran % (Auto) Neut % (Auto) Lymph % (Auto) [place] % (Auto) Eos % (Auto) Baso % (Auto) Lymph # (Auto) [place] # (Auto) Eos # (Auto) Baso # (Auto) Abs Immat Gran (auto) Absolute Neuts (auto) Absolute Nucleated RBC 0.000 0.000 Nucleated RBC % (auto) 0.0 0.0 PT 11.4 11.9 INR 1.0 1.0 aPTT Heparin Protocol 30.8 L 37.7 L D Sodium 142 Potassium 4.1 Chloride 108 Carbon Dioxide 24 Anion Gap 14 BUN 11 Creatinine 0.64 Estim Creat Clear Calc 227.6 Estimated GFR > 60 Random Glucose 95 Calcium 8.8 D Magnesium Total Bilirubin AST ALT Alkaline Phosphatase Troponin I High Sens 407.2 H* B-Natriuretic Peptide Total Protein Albumin TSH EKG 1. Shows normal sinus rhythm with subtle J-point depression EKG 2. Shows normal sinus rhythm normal EKG Imaging Radiologist's impression: Impressions Chest X-Ray 12/30/24 13:54 IMPRESSION: No acute disease Electronically signed by: Shiv Wolfe MD 12/30/2024 02:56 PM EDT Assessment and Plan (1) Non-ST elevation [place] (NSTEMI): Status: Acute patient with chest pain on and off started 10 days ago and then had recurrence yesterday with exertional activity highly concerning for acute plaque rupture and acute coronary syndrome with elevated troponins. EKG is unremarkable although echocardiogram although suboptimal quality does shows some wall motion abnormalities. Likelihood of possibly circ territory ischemia. Patient is currently having mild on and off chest pressure. Will start him on nitro paste. Continue aspirin, high-intensity statin therapy as well as IV heparin. Will hold off on 2nd antiplatelet agent till we know the coronary anatomy. Patient will need cardiac catheterization and will be transferred to [facility] for the same. I had a very detailed discussion with the patient and his girlfriend over the phone about his current medical situation and potential differential diagnose is for his chest pain syndrome elevated troponins. We discussed the procedure of cardiac catheterization detail including risks, benefits, alternatives. He is agreeable to pursue with cardiac catheterization. [facility] unless his situation clinically worsens. Will follow with you while he is here at [facility]. Please inform to spent in managing his care. Thank you for allowing me to partake in his care Procedures Date of Service Date of Service: 12/31/24
[2024-12-31 09:58] LABS: Hematocrit 41.6 % (42.0-52.0); Hemoglobin 13.9 g/dl (14.0-18.0); Mean Corpuscular HGB Conc 33.4 g/dl (31.0-36.0); Mean Corpuscular Hemoglobin 27.8 pg (27.0-33.0); Mean Corpuscular Volume 83.2 fL (80.0-98.0); NRBC Abs Auto 0.000 X10*3/uL (0.0-0.012); NRBC Pct Auto 0.0 /100WBC (0.0-0.2); Platelet Count 192 X10*3/uL (160-400); Red Blood Count 5.00 X10*6/uL (4.60-5.80); White Blood Count 8.1 X10*3/uL (4.8-10.8)
[2024-12-31 10:08] LABS: PTT Heparin Drip 54.6 SEC (53-77.9)
--- NOTE | 2024-12-31 10:44 | PC.NURSE ---
Pt medicated per orders for anxiety with + decrease in sx's; repeat PTT 54.6, no change to heparin drip per protocol and no bolus; awaiting room for admission
--- NOTE | 2024-12-31 11:21 | MHC.CM.PN ---
Pt. lives with his family, he does not use home health services. For DME, he has a CPAP machine. PCP is [facility], he does not know which provider. HCP discussed, he declined to complete form here. He will need assistance with transport home at [place], DCP: home, self care, CM to follow for DC needs.
--- NOTE | 2024-12-31 14:46 | P.PNIM_ITS ---
Subjective Subjective Date of Service: 12/31/24 Interval History: No further chest pain since this a.m.. Awaiting transfer to [facility] for catheterization Review of Systems Admits to intermittent chest pain that is short lived Denies shortness of breath Denies nausea vomiting diarrhea Denies fever/chills Physical Exam 2 Vital Signs: Vital Signs: Last Vital Signs Temp 97.1 F 12/31/24 13:01 Pulse 56 12/31/24 13:01 Resp 18 12/31/24 13:01 BP 140/70 H 12/31/24 13:01 Pulse Ox 96 12/31/24 13:01 O2 Del Method Room Air 12/31/24 13:01 BMI result Body Mass Index 55.7 Const: Other: Awake alert oriented x3 in no acute distress Resp: Other: Clear to auscultation bilaterally no rales rhonchi or wheezes Cardio: Other: No S4; positive S1-S2; no S3 murmurs rubs or gallops GI: Other: Soft nontender nondistended normoactive bowel sounds Extrem: Other: No edema bilaterally Objective Data Active Medications Acetaminophen (Acetaminophen 325 Mg Tablet) 650 mg PO Q6H PRN PRN Reason: Pain, Mild 1-3,fever,headache Calcium Carbonate (Calcium Carbonate 750 Mg Tab.Chew) 750 mg PO Q4H PRN PRN Reason: Heartburn Heparin Sodium (Porcine) (Heparin Sodium,Porcine 5,000 Unit/Ml Vial) 6,600 unit 40 unit/kg (6600 unit) IVPUSH PROTOCOL BOLUS PRN; Protocol PRN Reason: 40 unit/kg - Heparin Protocol Last Admin: 12/31/24 03:56 Dose: 6,600 unit Documented By: JACKY Heparin Sodium (Porcine) (Heparin Sodium,Porcine 5,000 Unit/Ml Vial) 10,000 unit IVPUSH PROTOCOL BOLUS PRN; Protocol PRN Reason: 80 unit/kg - Heparin Protocol Heparin Sodium/Sodium Chloride (Heparin Sodium,Porcine/1/2ns) 25,000 unit in 250 mls @ 0 mls/hr IVCONT .Q0M [facility]; Protocol Last Titration: 12/31/24 10:41 Dose: 8.061 units/kg/hr, 13.3 mls/hr Documented By: ADELFO Co-signed By: ANALY Lorazepam (Lorazepam 1 Mg Tablet) 1 mg PO Q6H PRN PRN Reason: Anxiety Magnesium Hydroxide (Milk Of Magnesia 30 Ml Oral.Susp) 30 ml PO DAILY PRN PRN Reason: Constipation Melatonin (Melatonin 3 Mg Tablet) 6 mg PO BEDTIME PRN PRN Reason: Insomnia Nitroglycerin (Nitroglycerin 0.4 Mg Tab.Subl) 0.4 mg SUBLINGUAL Q5MX3 PRN PRN Reason: Chest Pain Last Admin: 12/30/24 15:36 Dose: 0.4 mg Documented By: KADY Nitroglycerin (Nitroglycerin 0.4 Mg Tab.Subl) 0.4 mg SUBLINGUAL Q5MX3 PRN PRN Reason: Chest Pain Nitroglycerin (Nitroglycerin 2 % Oint 1 Gm Packet) 0.5 inch TRANSDERMA RQ6H WHILE AWAKE [facility] Ondansetron HCl (Ondansetron Hcl 4 Mg/2 Ml Vial) 4 mg IVPUSH Q8H PRN PRN Reason: Nausea and Vomiting Sodium Chloride (0.9 % Sodium Chloride Flush 3 Ml Syringe) 3 ml IVFLUSH QSHIFT DANIEL Last Admin: 12/31/24 09:17 Dose: Not Given Documented By: ADELFO Non-Admin Reason: IV Running Labs 12/31/24 09:50 12/31/24 03:25 Labs: Laboratory Results - last 24 hr 12/30/24 12/30/24 12/30/24 14:38 18:30 20:35 MCV 83.3 83.3 MCH 27.8 27.7 MCHC 33.4 33.3 RDW 13.0 13.1 Plt Count 198 195 MPV 11.7 11.7 Immature Gran % (Auto) 0.2 Neut % (Auto) 63.4 Lymph % (Auto) 28.9 [place] % (Auto) 5.8 Eos % (Auto) 1.5 Baso % (Auto) 0.2 Lymph # (Auto) 2.5 [place] # (Auto) 0.5 Eos # (Auto) 0.1 Baso # (Auto) 0.0 Abs Immat Gran (auto) 0.02 Absolute Neuts (auto) 5.4 Absolute Nucleated RBC 0.000 0.000 Nucleated RBC % (auto) 0.0 0.0 PT 12.3 11.4 INR 1.1 1.0 aPTT Heparin Protocol 31.0 L 30.8 L Anion Gap 12 Estim Creat Clear Calc 199.1 Estimated GFR > 60 Random Glucose 179 H Calcium 9.5 Magnesium 2.1 Total Bilirubin 0.3 AST 34 ALT 51 H Alkaline Phosphatase 69 B-Natriuretic Peptide 11 Total Protein 7.4 Albumin 4.1 TSH 0.91 12/31/24 12/31/24 03:25 09:50 MCV 82.9 83.2 MCH 27.8 27.8 MCHC 33.5 33.4 RDW 13.2 13.2 Plt Count 192 192 MPV 11.8 11.9 Immature Gran % (Auto) Neut % (Auto) Lymph % (Auto) [place] % (Auto) Eos % (Auto) Baso % (Auto) Lymph # (Auto) [place] # (Auto) Eos # (Auto) Baso # (Auto) Abs Immat Gran (auto) Absolute Neuts (auto) Absolute Nucleated RBC 0.000 0.000 Nucleated RBC % (auto) 0.0 0.0 PT 11.9 INR 1.0 aPTT Heparin Protocol 37.7 L D 54.6 D Anion Gap 14 Estim Creat Clear Calc 227.6 Estimated GFR > 60 Random Glucose 95 Calcium 8.8 D Magnesium Total Bilirubin AST ALT Alkaline Phosphatase B-Natriuretic Peptide Total Protein Albumin TSH Assessment and Plan (1) Non-ST elevation [place] (NSTEMI): Status: Acute (2) Hypertension: Status: Acute Plan This is a 44-year-old male with pertinent history of hypertension noncompliant with medications, ERUM on CPAP who presents to the emergency department for evaluation of chest pain. 1.NSTEMI -seen by cardiology and transfer arranged for [facility] for catheterization (awaiting bed) -continue heparin drip as ordered -statin/ASA/nitro paste -Ativan for anxiety related to process -transfer to [facility] when appropriate.. Sooner if worsens 2.Hypertension -acceptable control on current therapies -adjust therapies as indicated IV heparin Full code Patient will require ongoing hospitalization awaiting tertiary care transfer for urgent cardiac catheterization Quality Stroke Does the patient have a stroke diagnosis?: No VTE Prior VTE?: No VTE Risk Level:: Medical - moderate - high VTE Device Contraindication: Treatment Not Indicated VTE Drug Contraindication: N/A - Med Ordered
--- NOTE | 2024-12-31 15:19 | P.DS_ITS ---
DS: Providers Provider Date of Service: 12/31/24 Date of admission: 12/30/24 21:00 Date of discharge: 01/01/25 Primary care physician: Srini Daniel MD Consults: 12/30/24 21:47 Consult to Cardiology Routine Consulting Provider: [facility] Reason for consultation: NSTEMI Has provider been notified: Yes DS: Diagnosis Discharge Diagnosis (1) Non-ST elevation [place] (NSTEMI): Status: Acute (2) Hypertension: Status: Acute DS: Summary Hospital Course Hospital Course: 4-year-old male with pertinent history of hypertension noncompliant with medications, ERUM on CPAP who presents to the emergency department for evaluation of chest pain. Patient states his symptoms started 2 weeks prior to presentation. He has been having intermittent chest pain which has been progressive over the last 2 weeks. The chest pain is midsternal and worse with exertion but does not relieve with rest. It intermittently radiates to his right arm and back. Sometimes the pain is worse when he takes a deep breath. Admits marijuana use and tobacco use. No history of CAD in the past. States he previously used to take antihypertensives but has not seen a PCP in a while. Is compliant with CPAP at home. No fever, chills, palpitations, abdominal pain, changes in urinary or bowel habits. In the emergency department, troponin was found to be elevated, Cardiology consulted and patient was initiated on IV heparin. Hospital Course Patient started on heparin drip in the ER and monitored on telemetry seen in consultation by Cardiology: 44-year-old male with morbid obesity with no other significant vascular risk factors such as diabetes hypertension currently not on any long-acting medications except for Tylenol as needed for migraine headaches. Patient says that he started having chest pain about 10 days ago, prior Friday while he was coming back from work. He describes this pain as a sharp pressure which was severe associated with shortness of breath. He then decided come to the emergency room here and was Told to go to [facility] ED. He did go to [facility] ED and was complaining of chest pain however he said he waited 4-5 hours without being seen any left without being seen. He said the pain lasted for about hour and half. However following 3 days he continued to have on and off chest discomfort which is not always clearly exertional related. 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 Symptoms then subsided and he did not pay much attention to it till yesterday when he was at work and suddenly developed significant similar chest pain which then prompted him to come to the emergency room. When he came to the emergency room he describes the chest pain in his sharp pressure in the lower left inframammary back along with rapid heart rate and when his heart rate would get rapid sister and he was given 2 sublingual nitroglycerin and says symptoms rapidly improved. His initial troponin was elevated and there was a concern for aortic dissection given his type of chest pain and there was a CTA of chest done which did not show any evidence of aortic dissection or pulmonary embolism. His EKGs was nonischemic showing normal sinus rhythm with Mibi subtle J-point depression in the initially EKGs. Subsequent EKGs within normal limits. He has 2nd troponin downtrending to 200 in his 3rd troponin than up trending again to 400. He continues to have on and off chest discomfort which comes in waves but he is not as severe. He was started on IV heparin drip yesterday was given aspirin and high-intensity statin therapy. He also received some morphine. He had a bedside echocardiogram done and because of his body habitus the study is limited but possibly shows basal inferior and basal inferolateral hypokinesis with preserved. patient is very concerned about this chest pain. He has strong family history of premature coronary artery disease in his mother who had missed heart event in her early 50s. Transfer to [facility] for urgent cardiac catheterization when bed available 01/01/25 patient has been on heparin drip since admission. Approximately 13 30 developed 6/10 retrosternal chest pain with radiation towards left shoulder. Patient given sublingual morphine in addition to the nitro paste he had already received and 4 of morphine. Call placed to [facility]. Patient reassessed; EKG with nonspecific STT wave changes inpatient now pain-free. [facility] has accepted transfer and he will be transferred down to hospitalist service. Time Attestation Discharge Coordination Time (in mins): 35 Quality: Safe Use of Opioids Does Pt have an Active Cancer Diagnosis on the Problem List?: No Quality: Stroke Does the patient have a stroke diagnosis?: No Physical Exam Vital Signs: Vital Signs: Last Vital Signs Temp 97.1 F 12/31/24 13:01 Pulse 56 12/31/24 13:01 Resp 18 12/31/24 13:01 BP 140/70 H 12/31/24 13:01 Pulse Ox 96 12/31/24 13:01 O2 Del Method Room Air 12/31/24 13:01 BMI result Body Mass Index 55.7 Const: Other: Awake alert oriented x3 in no acute distress Resp: Other: Clear to auscultation bilaterally no rales rhonchi or wheezes Cardio: Other: No S4; positive S1-S2; no S3 murmurs rubs or gallops GI: Other: Soft nontender nondistended normoactive bowel sounds Extrem: Other: No edema bilaterally DS: Data Data Completed and Pending Labs on day of discharge: Laboratory Results - last 24 hr 12/30/24 12/30/24 12/30/24 14:38 16:33 18:30 WBC RBC Hgb Hct MCV MCH MCHC RDW Plt Count MPV Absolute Nucleated RBC Nucleated RBC % (auto) PT INR aPTT Heparin Protocol 31.0 L Sodium Potassium Chloride Carbon Dioxide Anion Gap BUN Creatinine Estim Creat Clear Calc Estimated GFR Random Glucose Calcium Troponin I High Sens 344.3 H* D 295.1 H* TSH 0.91 12/30/24 12/31/24 12/31/24 20:35 03:25 09:50 WBC 10.0 8.4 8.1 RBC 4.84 4.86 5.00 Hgb 13.4 L 13.5 L 13.9 L Hct 40.3 L 40.3 L 41.6 L MCV 83.3 82.9 83.2 MCH 27.7 27.8 27.8 MCHC 33.3 33.5 33.4 RDW 13.1 13.2 13.2 Plt Count 195 192 192 MPV 11.7 11.8 11.9 Absolute Nucleated RBC 0.000 0.000 0.000 Nucleated RBC % (auto) 0.0 0.0 0.0 PT 11.4 11.9 INR 1.0 1.0 aPTT Heparin Protocol 30.8 L 37.7 L D 54.6 D Sodium 142 Potassium 4.1 Chloride 108 Carbon Dioxide 24 Anion Gap 14 BUN 11 Creatinine 0.64 Estim Creat Clear Calc 227.6 Estimated GFR > 60 Random Glucose 95 Calcium 8.8 D Troponin I High Sens 407.2 H* TSH Discharge Plan Discharge Anticipated Discharge Date/Time: 01/01/25 14:23 Patient Disposition: Xfer Acute [facility] Discharge Diagnosis: NSTEMI Referrals: Name,MD Srini [Primary Care Provider, Internal Medicine] - 1 Week Discharge Medications: New nitroglycerin [Nitrostat] 0.4 mg Tablet, Sublingual 0.4 mg sublingual Q5MX3 PRN (Reason: Chest Pain) Qty: 30 0RF nitroglycerin [Nitro-Bid] 2 % Ointment 0.5 inch transdermal RQ6H WHILE AWAKE Qty: 30 0RF lorazepam 1 mg Tablet 1 mg PO Q6H PRN (Reason: Anxiety) Qty: 20 0RF heparin (porcine) 5,000 unit/mL Solution 6,600 unit IVPUSH PROTOCOL BOLUS PRN (Reason: 40 Unit/Kg - Heparin Protocol) Qty: 10 0RF heparin (porcine) 5,000 unit/mL Solution 10,000 unit IVPUSH PROTOCOL BOLUS PRN (Reason: 80 Unit/Kg - Heparin Protocol) Qty: 10 0RF heparin(porcine) in 0.45% NaCl 25,000 unit/250 mL Parenteral Solution 25,000 unit continuous IV infusion .Q0M Qty: 100 0RF Discontinued acetaminophen 500 mg Tablet 1,000 mg PO Q6H PRN (Reason: Migraine Headache/Pain) Discharge Orders: Discharge Order (Routine); Ordered 01/01/25 Ordered By: Mauri Torres Diet: Advance to usual diet Activity on Discharge: As tolerated Stand Alone Forms: Patient Portal Discharge page Print Language: Yakut Care Plan Goals: Continue meds including heparin as ordered Health Concerns: Cardiac catheterization as per [facility] Plan of Treatment: As per receiving facility Assessment: See discharge summary
[2024-12-31] MEDS: Nitroglycerin 2 % Oint 1 GM Packet 0.5 INCH TRANSDERMA ×2 (15:27→20:40)
[2024-12-31] MEDS: Heparin Sodium,Porcine/1/2NS 25,000 UNIT/250 ML IV.SOLN 13.3 UNIT IVCONT (15:39)
[2024-12-31 17:48] LABS: PTT Heparin Drip 40.2 SEC (53-77.9)
[2025-01-01 00:31] LABS: PTT Heparin Drip 83.0 SEC (53-77.9)
[2025-01-01 03:25] VITALS: BP 146/93; PULSE 48; RESP 18; TEMP 36.4; O2SAT 96
[2025-01-01] MEDS: Heparin Sodium,Porcine/1/2NS 25,000 UNIT/250 ML IV.SOLN 13.3 UNIT IVCONT (06:20)
[2025-01-01 07:19] VITALS: BP 125/84; PULSE 62; RESP 18; TEMP 36.3; O2SAT 97
[2025-01-01 07:50] LABS: PTT Heparin Drip 49.2 SEC (53-77.9)
[2025-01-01 08:07] LABS: Alanine Aminotransferase 41 U/L (0-40); Albumin Level 3.7 g/dL (3.5-5.0); Alkaline Phosphatase 60 U/L (39-117); Anion Gap 11 (12-20); Aspartate Amino Transferase 27 U/L (5-37); Blood Urea Nitrogen 9 mg/dL (9-16); Calcium 8.8 mg/dL (8.4-10.2); Carbon Dioxide 25 mmol/L (22-29); Chloride 108 mmol/L (96-108); Creatinine Clr Calc Pharmacy 203.1; Estimated Glomerular Filt Rate > 60; Potassium 4.2 mmol/L (3.3-5.1); Sodium 140 mmol/L (135-145); Total Protein 6.8 g/dL (6.5-8.0)
[2025-01-01] MEDS: Nitroglycerin 2 % Oint 1 GM Packet 0.5 INCH TRANSDERMA ×2 (08:28→13:20)
[2025-01-01] MEDS: 0.9 % Sodium Chloride Flush 3 ML SYRINGE IVFLUSH ×2 (08:34→14:35)
--- NOTE | 2025-01-01 10:25 | PM.PNCARD ---
Subjective Subjective Date of Service: 01/01/25 Principal diagnosis: NSTEMI Interval history: Patient was awaiting transfer. Remained stable. Most of the time the chest pain was quite stable had minor episode last night which resolved very quickly. Remains on IV heparin drip. Review of Systems Constitutional: Reports no additional constitutional complaints Eyes: Reports no additional eye complaints Cardiovascular: Reports chest pain at rest (Very transient), Denies leg edema, Denies lightheadedness and Denies Loss of Consciousness Musculoskeletal: Reports no additional musculoskeletal complaints Physical Exam Vital Signs: Last Vital Signs Temp 97.3 F 01/01/25 07:19 Pulse 62 01/01/25 07:19 Resp 18 01/01/25 07:19 BP 125/84 01/01/25 07:19 Pulse Ox 97 01/01/25 07:19 O2 Del Method Room Air 01/01/25 07:19 BMI result Body Mass Index 55.7 Const General: cooperative, comfortable, alert, awake and anxious Nutritional Appearance: obese morbidly obese Orientation/consciousness: patient oriented x3 Limitations: no limitations HEENT Head: Yes normocephalic and Yes atraumatic Neck Neck: Yes trachea midline, Yes supple and Yes no JVD Chest Chest palpation & inspection: normal inspection of the chest and tenderness xiphoid process Resp Effort & Inspection: normal respiratory effort Auscultation: clear to auscultation bilaterally Cardio Jugular venous distension: no JVD Rate: regular rate Rhythm: regular rhythm Heart sounds: S1 normal heart sound present, S2 normal heart sound present, no click, no gallops, no murmurs and no rubs Skin General skin exam: no rashes or lesions noted Neuro General: patient oriented x3 and no focal motor deficits Extrem General: Yes no clubbing, cyanosis or edema Psych Affect: Anxious affect present Objective Labs and Meds 12/31/24 09:50 01/01/25 07:28 Lab results: Laboratory Results - last 24 hr 12/31/24 01/01/25 01/01/25 15:58 00:10 07:28 aPTT Heparin Protocol 40.2 L D 83.0 H D 49.2 L D Sodium 140 Potassium 4.2 Chloride 108 Carbon Dioxide 25 Anion Gap 11 L BUN 9 Creatinine 0.72 Estim Creat Clear Calc 203.1 Estimated GFR > 60 Fasting Glucose 99 Calcium 8.8 Total Bilirubin 0.4 AST 27 ALT 41 H Alkaline Phosphatase 60 Total Protein 6.8 Albumin 3.7 Progress Note: A&P Assessment and plan (1) Non-ST elevation [place] (NSTEMI): Status: Acute Assessment and Plan: NSTEMI with some atypical features but concerning echocardiogram as well as symptoms and now relief with nitroglycerin. High likelihood of underlying obstructive CAD. This needs to be ruled out. Will continue proceed with planned for cardiac catheterization. Discussed with the patient. Continue IV heparin, aspirin, high-intensity statin therapy as well as nitrates. Patient was made aware of cardiac catheterization with the procedural details including risks, benefits, alternatives. He was agreeable. Will sign of the case. Thank you for allowing me to partake in his care Time Spent With Patient Time: Total time managing care of this patient today ____ minutes. Progress Note: Quality Stroke Does the patient have a stroke diagnosis?: No Procedures Date of Service Date of Service: 01/01/25
[2025-01-01 11:03] VITALS: BP 161/82; PULSE 75; RESP 18; TEMP 36; O2SAT 96
[2025-01-01 13:25] VITALS: BP 142/79
--- NOTE | 2025-01-01 13:40 | ECG_ITS ---
Test Reason : chest pain Blood Pressure : */* mmHG Vent. Rate : 63 BPM Atrial Rate : 63 BPM P-R Int : 188 ms QRS Dur : 88 ms QT Int : 420 ms P-R-T Axes : 49 60 88 degrees QTcB Int : 429 ms Normal sinus rhythm Nonspecific ST and T wave abnormality Abnormal ECG When compared with ECG of 30-Dec-2024 15:23, Nonspecific T wave abnormality now evident in Inferior leads Nonspecific T wave abnormality now evident in Lateral leads Referred By: Mauri Torres Electronically Signed By: NOLAN LEVINE
--- NOTE | 2025-01-01 14:27 | MHC.CM.PN ---
Patient will transfer to [facility] today.
[2025-01-01 14:47] LABS: Troponin-I High Sensitivity 202.4 ng/L (<3.5-35.0)
[2025-01-01 15:00] LABS: PTT Heparin Drip 61.8 SEC (53-77.9)
[2025-01-01 15:22] VITALS: BP 164/89; PULSE 65; RESP 18; TEMP 36.8; O2SAT 97
== END 2025-01-01 17:46 | disposition short-term general hospital (02) | DRG 190 ==
LOC: HO.ED 14:17 → HO.EDOVER 21:05 → HO.IMC 12-31 12:33
PROVIDERS: Registered Nurse Emergency; Admitting Provider Student in an Organized Health Care Education/Training Program; Emergency Provider Emergency Medicine; PCP Internal Medicine Geriatric Medicine; Visit Provider Hospitalist
DX: I21.4 Non-ST elevation (NSTEMI) myocardial infarction (principal); Z68.43 Body mass index [BMI] 50.0-59.9, adult; E66.01 Morbid (severe) obesity due to excess calories; F17.210 Nicotine dependence, cigarettes, uncomplicated; Z71.6 Tobacco abuse counseling; I10 Essential (primary) hypertension; I25.10 Atherosclerotic heart disease of native coronary artery without angina pectoris; Z82.49 Family history of ischemic heart disease and other diseases of the circulatory system; Z91.148 Patient's other noncompliance with medication regimen for other reason
CPT/HCPCS: 36415; 71046; 71275; 80048; 80053; 83735; 83880; 84443; 84484; 85025; 85027; 85610; 85730; 93005; 93306; 99285; J1644; J2270; Q9957; Q9967

== ENCOUNTER → 2024-12-30 13:49 | Outpatient (BNV) | payer MEDICAID, SELFPAY | PROVIDERS: Emergency Provider Emergency Medicine; Visit Provider Internal Medicine Cardiovascular Disease | DX: R07.89 Other chest pain (principal) | CPT/HCPCS: 93010 ==

== ENCOUNTER → 2024-12-30 13:56 | Outpatient (BNV) | payer MEDICAID, SELFPAY | PROVIDERS: Emergency Provider Emergency Medicine; Visit Provider Radiology Diagnostic Radiology | DX: R07.89 Other chest pain (principal) | CPT/HCPCS: 71046; 71275 ==

== ENCOUNTER 2024-12-30 21:00 | Outpatient (BNV) | payer MEDICAID, SELFPAY | END 2025-01-01 13:40 | PROVIDERS: Admitting Provider Student in an Organized Health Care Education/Training Program; Emergency Provider Emergency Medicine; PCP Internal Medicine Geriatric Medicine; Visit Provider Internal Medicine | DX: R94.31 Abnormal electrocardiogram [ECG] [EKG] (principal); R07.9 Chest pain, unspecified | CPT/HCPCS: 93010 ==

== ENCOUNTER 2024-12-30 21:00 | Outpatient (BNV) | payer MEDICAID, SELFPAY | END 2024-12-31 07:00 | PROVIDERS: Admitting Provider Student in an Organized Health Care Education/Training Program; Emergency Provider Emergency Medicine; PCP Internal Medicine Geriatric Medicine; Visit Provider Internal Medicine Cardiovascular Disease | DX: I42.2 Other hypertrophic cardiomyopathy (principal); I21.4 Non-ST elevation (NSTEMI) myocardial infarction | CPT/HCPCS: 93306 ==

== ENCOUNTER → 2024-12-30 21:00 | Outpatient (BNV) | payer MEDICAID, SELFPAY | PROVIDERS: Admitting Provider Student in an Organized Health Care Education/Training Program; Emergency Provider Emergency Medicine; Visit Provider Student in an Organized Health Care Education/Training Program | DX: I21.4 Non-ST elevation (NSTEMI) myocardial infarction (principal) | CPT/HCPCS: 99222; 99233 ==

== ENCOUNTER → 2024-12-30 21:00 | Outpatient (BNV) | payer MEDICAID, SELFPAY | PROVIDERS: Admitting Provider Student in an Organized Health Care Education/Training Program; Emergency Provider Emergency Medicine; Visit Provider Internal Medicine Cardiovascular Disease | DX: I21.4 Non-ST elevation (NSTEMI) myocardial infarction (principal) | CPT/HCPCS: 99223; 99233 ==

== ENCOUNTER 2025-01-14 09:44 | Outpatient (AMB) | payer MEDICAID, SELFPAY ==
[2025-01-14 09:47] VITALS: BP 146/72; PULSE 54; BMI 54.8
--- NOTE | 2025-01-14 09:47 | A.OFFVIS_ITS ---
Vital Signs 01/14/25 09:47 Height 5 ft 8 in Weight 360 lb 3.765 oz BMI 54.8 BP 146/72 H Blood Pressure Location Lt brachial Position Sitting Pulse 54 Pulse Source Pulse Oximeter Intake Visit Reasons: f/u post cath sooner pt rq Accompanied by: Self / Same As Patient Allergies No Known Allergies (No Known Allergies*) Allergy (Verified 01/14/25 09:53) Medication List - Last Reconciled 01/14/25 by BETINA Nevarez aspirin (Adult Low Dose Aspirin) 81 mg PO DAILY atorvastatin (Lipitor) 80 mg PO BEDTIME losartan 25 mg PO DAILY metoprolol succinate ER 25 mg PO DAILY nitroglycerin (Nitrostat) 0.4 mg sublingual Q5MX3 PRN ticagrelor 90 mg PO BID HPI HPI f/u post cath sooner pt rq: Details: Triston is a 44-year-old male with past medical history of hypertension, hyperlipidemia, morbid obesity, who recently presented to [facility] with chest discomfort. He ruled in for NSTEMI and was transferred for cardiac catheterization showing significant left circumflex and RCA stenosis. He had 2 circumflex stents and 2 RCA stents placed. He now presents for follow-up. Today he reports that he has been doing well since his hospital discharge. He has not had any recurrent chest discomfort. At this time he tells me he has been getting chest discomfort with exertional activities for the last 2-3 months. He denies any shortness of breath, PND, orthopnea or edema. No lightheadedness, palpitations. He has been doing normal ADLs and plans to return to work on 01/17/2025. 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 He is wi lling to do cardiac rehab. He reports taking all meds as directed and he has been trying to eat better in order to lose weight. [facility] Medical History (Updated 01/14/25 @ 10:48 by BETINA Nevarez) Hypertension Obstructive sleep apnea Anxiety Depression Hypercholesteremia GERD (gastroesophageal reflux disease) Surgical History (Updated 01/14/25 @ 11:38 by FLORENCIA NevarezC) History of cardiac cath H/O colonoscopy H/O circumcision Family History Mother Arterial stent thrombosis Maternal Grandmother Diabetes Dementia Father Lung cancer Social History Household Members: Significant Other Housing: Apartment Are you a primary progressive care unit registered nurse to a significant other at home: No Do you presently have visiting nurse or other home services: No Alcohol intake: current Alcohol intake frequency: a few times a month Patient Tobacco Use Status: Current someday Tobacco user Tobacco use type: Cigarette e-Cigarette/Vaping Use: Currently Using Substance Use Type: Marijuana service: No Current occupational status: disabled Review of Systems Const All systems reviewed & are unremarkable except as noted in HPI and below Denies daytime sleepiness, Denies difficulty sleeping, Denies snoring, Denies stops breathing during sleep and Denies weakness Card Denies chest pain, Denies rapid heart rate, Denies irregular heart rhythm, Denies claudication, Denies leg edema, Denies lightheadedness, Reports palpitations, Denies dyspnea, Denies dyspnea on exertion, Denies orthopnea, Denies paroxysmal nocturnal dyspnea and Denies slow heart rate Resp Denies cough, Denies dyspnea, Denies dyspnea on exertion and Denies snoring GI Reports no additional complaints, Denies hematochezia, Denies change in stool character and Denies dyspepsia Musc Denies abnormal gait, Denies muscle weakness and Denies numbness Neuro Denies abnormal gait, Denies numbness and Denies weakness Endo Reports palpitations Physical Exam Vital Signs: Last Vital Signs Pulse 54 01/14/25 09:47 BP 146/72 H 01/14/25 09:47 BMI result Body Mass Index 54.8 Const General: cooperative, healthy appearing, comfortable and no acute distress Orientation/consciousness: patient oriented x3 Neck Neck: Yes normal visual inspection Resp Effort & Inspection: normal respiratory effort Auscultation: clear to auscultation bilaterally, no rales, no rhonchi and no wheezes Cardio Rate: regular rate Rhythm: regular rhythm Heart sounds: S1 normal heart sound present, S2 normal heart sound present, no gallops, no murmurs and no rubs Neuro General: patient oriented x3 Extrem Other: right radial cath site with easily palpable radial pulse General: Yes normal to inspection, No no pedal edema and No calf tenderness Psych Appearance: grossly normal Mental Status: mental status grossly normal Speech and movement: Normal speech and movement present Assessment & Plan Assessment & Plan (1) Non-ST elevation [place] (NSTEMI): Code(s): I21.4 - Non-ST elevation (NSTEMI) myocardial infarction Category: Medical Plan: NSTEMI 12/31/2024. Echocardiogram done that day showed EF 55-60% with possible inferior hypokinesis. Technically difficult study. Cardiac catheterization done 01/03/2025 showed significant left circumflex and RCA stenosis. He had stents placed in the mid and distal circumflex, proximal and mid RCA. ( 4 total). No recurrent angina since that time. Continue aspirin indefinitely. Continue Brilinta uninterrupted for at least 1 year. Continue high-dose atorvastatin with ideal LDL goal less than 70. Continue metoprolol and losartan. Will order cardiac rehab. Signs and symptoms of angina reviewed with him. Cardiology follow-up 3 months, sooner if needed. (2) CAD (coronary artery disease): Code(s): I25.10 - Atherosclerotic heart disease of [place] coronary artery without angina pectoris Category: Medical Plan: As above (3) S/P cardiac cath: Comment: 01/03/2025 showed left main mild irregularities, lad mild irregularities, left circumflex mid 70% stenosis, distal 80% stenosis, RCA mid 90% stenosis, proximal 70% stenosis, stents placed to the mid circumflex, distal circumflex, proximal RCA and mid RCA. Code(s): Z98.890 - Other specified postprocedural states Category: Surgical Plan: Right radial catheterization site healing well (4) Hypertension: Code(s): I10 - Essential (primary) hypertension Category: Medical Plan: Blood pressure goal less than 130/80. Initially mildly elevated at 140 . Recheck done by me later in the visit 130/80. Continue current losartan and metoprolol XL. Low-salt diet, weight loss reviewed. (5) Hypercholesteremia: Code(s): E78.00 - Pure hypercholesterolemia, unspecified Category: Medical Plan: [place] LDL goal less than 70, less than 55 if able. Recently started on high- dose atorvastatin. Will plan for fasting lipid prior to next visit. (6) Hospital discharge follow-up: Code(s): Z09 - Encounter for follow-up examination after completed treatment for conditions other than malignant neoplasm Category: Medical Plan: Discharge summary and cath notes reviewed. (7) Stented coronary artery: Comment: 01/03/2025 stents in the mid and distal left circumflex and proximal and mid RCA. Code(s): Z95.5 - Presence of coronary angioplasty implant and graft Category: Surgical Plan Time spent on chart review, documentation, interview, assessment Orders: Orders Cardiac Rehab Today I21.4 - Non-ST elevation (NSTEMI) myocardial infarction, Z95.5 - Presence of coronary angioplasty implant and graft Liver Panel 2 Months E78.00 - Pure hypercholesterolemia, unspecified Lipid Panel 2 Months E78.00 - Pure hypercholesterolemia, unspecified Coding Level of Care Code Est Pt Level 4 (63520) Complex EM visit Add On G2211 Diagnoses Non-ST elevation [place] (NSTEMI) I21.4 CAD (coronary artery disease) I25.10 S/P cardiac cath Z98.890 Hypertension I10 Hypercholesteremia E78.00 Hospital discharge follow-up Z09 Stented coronary artery Z95.5 Time Spent (min) 36
== END 2025-01-14 10:39 | disposition home or self-care (01) ==
LOC: HO.HCS 09:45
PROVIDERS: PCP Internal Medicine Geriatric Medicine; Visit Provider Nurse Practitioner Family
DX: I21.4 Non-ST elevation (NSTEMI) myocardial infarction (principal); I25.10 Atherosclerotic heart disease of native coronary artery without angina pectoris; Z98.890 Other specified postprocedural states; I10 Essential (primary) hypertension; E78.00 Pure hypercholesterolemia, unspecified; Z09 Encounter for follow-up examination after completed treatment for conditions other than malignant neoplasm; Z95.5 Presence of coronary angioplasty implant and graft
CPT/HCPCS: 99214

== ENCOUNTER → 2025-01-14 09:44 | Outpatient (BNVA) | payer MEDICAID, SELFPAY | PROVIDERS: PCP Internal Medicine Geriatric Medicine; Visit Provider Nurse Practitioner Family | DX: Z09 Encounter for follow-up examination after completed treatment for conditions other than malignant neoplasm (principal); I21.4 Non-ST elevation (NSTEMI) myocardial infarction; I25.10 Atherosclerotic heart disease of native coronary artery without angina pectoris; I10 Essential (primary) hypertension; E78.00 Pure hypercholesterolemia, unspecified; Z95.5 Presence of coronary angioplasty implant and graft; Z98.890 Other specified postprocedural states | CPT/HCPCS: 99212 ==

== ENCOUNTER 2025-02-14 16:05 | Outpatient (REF) | payer MEDICAID, SELFPAY ==
--- NOTE | ~2025-02-14 | XR_ITS ---
EXAMINATION: XR CHEST CLINICAL INFORMATION: shortness of breath COMPARISON: 12/30/2024. TECHNIQUE: 2 views of the chest were obtained. FINDINGS: The cardiac, hilar, and mediastinal contours are normal. The lungs are clear bilaterally. There is no pneumothorax or pleural effusion. There is no focal osseous or soft tissue abnormality. XR/XR chest 2V IMPRESSION: No active pulmonary disease. Electronically signed by: Donte Holly MD 02/14/2025 04:31 PM EDT
--- OUTSIDE RECORDS SUMMARY | 2025-02-14 15:00 | XMS_ITS | Encounter Summary ---
Author Organization [employer] Address [address] [facility] 7[address] [place] [address] Care Team Providers Care Desk Sergeant Name Role Phone Larissa Viveros NP Primary Care Provider [phone] Reason for Visit * Reason Comments Shortness of Breath Encounter Details Date Type Department Care Team ([facility] st Contact Info) Description 02/14/2025 3:00 PM EDT Office Visit [facility] [address] [place] [address] Shortness of breath (Primary Dx); Wheezing; Acute cough; Elevated blood pressure reading in office with diagnosis of hypertension Social History Tobacco Use Types Packs/Day Years Used Date Smoking Tobacco: Every Day Cigarettes Passive Smoke Exposure: Current Smokeless Tobacco: Never Comments:Just started again Alcohol Use Standard Drinks/Week Comments Never 0 (1 standard drink = 0.6 oz pur e alcohol) Alcohol Answer Date Recorded Frequency of Alcohol Consumption Not on file 12/22/2023 Average Number of Drinks Not on file 024 Frequency of Binge Drinking Not on file 12/10 Score 0 12/22/2023 Depression Answer Date Recorded Patient Health Questionnaire-9 Score 15 01/17/2025 Patient Health Questionnaire-9 Score 15 01/17/2025 Last PHQ-9: Questionnaire Data Not on file 0 01/17/2025 Housing Stability Answer Date Recorded What is [...] Answer Date Recorded Patient Health Questionnaire-2 Score 4 01/17/2025 Internet Access Answer Date Recorded Internet Access Q1 No 01/17/2025 Internet Access Q2 I do not want or need it 12/2024 Sex and Gender Information Value Date Recorded Sex Assigned at Male 03/11/2022 10:30 AM EDT Legal Sex Male 10:30 AM EDT Gender Identity Male 03/11/2022 10:30 AM EDT Sexual Orientation Straight 03/11/2022 10 :30 AM EDT documented as of this encounter Last Filed Vital Signs Vital Sign Reading Time Taken Comments Blood Pressure 143/73 02/14/2025 3:36 PM EDT Pulse 73 02/14/2025 3:36 PM EDT Temperature 36.9 C (98.4 F) 02/14/2025 3:36 PM EDT Respiratory Rate 17 02/14/2025 3:36 PM EDT Oxygen Saturation 98% 02/14/2025 3:36 PM EDT Inhaled Oxygen Concentration - - Weight 166 kg (366 lb 3.2 oz) 02/14/2025 3:36 PM EDT Height 175.3 cm (5' 9 ) 02/14/2025 3:36 PM EDT Body Mass Index 54.08 02/14/2025 3:36 PM EDT documented in this encounter Plan of Treatment Upcoming Encounters Date Type Department Care Team (Late st Contact Info) Description 03/02/2025 11:30 AM EDT Office Visit [facility] [address] [place] [address] Larissa Viveros NP [address] [place] [address] 05/31/2025 1:00 PM EST Office Visit [facility] [address] [place] [address] Anahi Barron, OD [address] [place] [address] Scheduled Orders Name Type Priority Associated Diagnoses Orde r Schedule Respiratory Viral Panel PCR Lab Routine Shortness of breath Wheezing Acute cough Ordered: 02/14/2025 documented as of this encounter Procedures Procedure Name Priority Date/Time Associated Diagnosis Comments XR CHEST 2 VIEWS Routine 02/14/2025 4:20 PM EDT Shortness of breath documented in this encounter Results * XR Chest 2 Views (02/14/2025 4:20 PM EDT) Anatomical Region Laterality Modality Chest Radiographic Priya ging 02/14/2025 4:20 PM EDT Narrative 02/14/2025 4:34 PM EDT [facility] [address] [place] [address] XRay Report Signed Patient: Triston Quinn MR#: [id number] : 1980 Acct:[id number] Age/Sex: 44 / M ADM Date: 02/14/25 Loc: HO.HHCX Attending Dr: Barbra Arellano Ordering Physician: Barbra Arellano Date of Service: 02/14/25 Procedure(s): XR chest 2V Accession Number(s): [id number] cc: Barbra Arellano Reason for Exam: shortness of breath EXAMINATION: XR CHEST CLINICAL INFORMATION: shortness of breath COMPARISON: 12/30/2024. TECHNIQUE: 2 views of the chest were obtained. FINDINGS: The cardiac, hilar, and mediastinal contours are normal. The lungs are clear bilaterally. There is no pneumothorax or pleural effusion. There is no focal osseous or soft tissue abnormality. XR/XR chest 2V IMPRESSION: No active pulmonary disease. Electronically signed by: Donte Holly MD 02/14/2025 04:31 PM EDT Dictated By: Donte Holly MD Signed By: <Electronically signed by Donte Holly MD in OV> 02/14/25 1631 DD/ 1620 TD/TT: 02/14/25 162 Program Director/Morning Show Host: Procedure Note Watson, Radha - 02/14/[address] [address] XRay Report Signed Patient: Triston Quinn EMR#: M [id number] : 1980Acct:[id number] Age/Sex: 44 / MADM Date: 02/14/25 Loc: HO.HHCX Attending Dr: Barbra Arellano Ordering Physician: Barbra Arellano Date of Service: 02/14/25 Procedure(s): XR chest 2V Accession Number(s): [id number] cc: Barbra Arellano Reason for Exam: shortness of breath EXAMINATION: XR CHEST CLINICAL INFORMATION: shortness of breath COMPARISON: 12/30/2024. TECHNIQUE: 2 views of the chest were obtained. FINDINGS: The cardiac, hilar, and mediastinal contours are normal. The lungs are clear bilaterally. There is no pneumothorax or pleural effusion. There is no focal osseous or soft tissue abnormality. XR/XR chest 2V IMPRESSION: No active pulmonary disease. Electronically signed by: Donte Holly MD 02/14/2025 04:31 PM EDT Dictated By: Donte Holly MD Signed By: <Electronically signed by Donte Holly MD in OV> 02/14/25 1631 DD/ 1620 TD/TT: 02/14/25 1624 Program Director/Morning Show Host: Barbra Arellano TIME ANALYSIS CLERK IMG XR PROCEDURES Final Result documented in this encounter Visit Diagnoses Diagnosis Shortness of breath- Primary Wheezing Acute cough Elevated blood pressure reading in office with diagnosis of hypertension documented in this encounter Administered Medications Inactive Administered Medications - up to 3 most recent administrations Medication Order MAR Action Action Date Dose Rate Site albuterol (2.5 MG/3ML) 0.083% nebulizer solution 2.5 mg 2.5 mg, Nebulization, Once, On 02/14/25 at 1615, For 1 doseIndications:Wheezing Given 02/14/2025 4:15 PM EDT 2.5 mg documented in this encounter Additional Health Concerns Assessment Noted Time PHQ-9 Depression Total Score: 15 025 4:20 PM EDT documented as of this encounter Care Teams Desk Sergeant Relationship Specialty Start Date End Date Larissa Viveros NP [address] [place] [address] PCP - General Family Medicine 11/12/23 documented as of this encounter
--- OUTSIDE RECORDS SUMMARY | 2025-02-14 18:21 | XMS_ITS | Encounter Summary ---
Author Organization [employer] Address [address] [facility] 7t [place] [address] Care Team Providers Care Apiarist Name Role Phone Larissa Viveros NP Primary Care Provider [phone] Reason for Visit * Reason Onset Date Comments Nurse Triage 12/30/2024 Encounter Details Date Type Department Care Team ([facility] st Contact Info) Description 12/30/2024 Telephone [facility] [address] [place] [address] Larissa Viveros NP [address] [place] [address] Nurse Triage Social History Tobacco Use Types Packs/Day Years [...] AM EDT documented as of this encounter Miscellaneous Notes * Telephone Encounter - Michelle Mendez RN - 12/30/2024 12:12 PM EDT Call returned to Triston Cote to triage below at [phone]. Reports having sx of increased palpitations and some SOB. Per pt lasts over 5 mins after rest. Per pt having left sided CP. Ptstates onset 2 weeks ago. Pt has been checking BP. Reports last BP of 146/90. Pt is currently on the phone, speaking in phrases. States becomes SOB with short distances. Pain is non radiating. Pt hasnot been med compliant as has been disconnected from care for over 1 year and has not had any refills. Pt advised of disposition, agrees to seek [facility] now for evaluation of sx. Pt agrees to contact EMS for transport. Sent to team for [facility] status check PRN. Protocol Used: Chest Pain (Adult) Protocol-Based Disposition: Go to ED Now Positive Triage Questions: * Difficulty breathing * Heart beating irregularly or very rapidly * All higher-acuity triage questions were negative Care Advice Discussed: * Reasons To Call Back - Chest pain increases in frequency, duration or severity - You become worse * Telephone Encounter - He Raul - 12/30/2024 11:45 AM EDT Symptom: Heartbeat Symptoms (Fast, Slow, or Irregular) Outcome: Transfer to a nurse or provider NOW! Reason: Chest pain Please contact pt at [phone]. documented in this encounter Plan of Treatment Upcoming Encounters Date Type Department Care Team (Late st Contact Info) Description 03/02/2025 11:30 AM EDT Office Visit [facility] [address] [place] [address] Larissa Viveros NP [address] [place] [address] 05/31/2025 1:00 PM EST Office Visit [facility] [address] [place] [address] Anderson, Anahi, OD [address] [place] [address] documented as of this encounter Visit Diagnoses Not on filedocumented in this encounter Additional Health Concerns Assessment Noted Time PHQ-9 Depression Total Score: 25 024 12:06 PM EDT documented as of this encounter Care Teams Apiarist Relationship Specialty Start Date End Date Larissa Viveros NP [address] [place] [address] PCP - General Family Medicine 11/12/23 documented as of this encounter
--- OUTSIDE RECORDS SUMMARY | 2025-02-14 18:21 | XMS_ITS | Encounter Summary ---
Author Organization [employer] Address [address] [facility] 7t [place] [address] Care Team Providers Care Health Tech Name Role Phone Larissa Viveros NP Primary Care Provider [phone] Encounter Details Date Type Department Care Team ([facility] st Contact Info) Description 01/14/2025 Orders Only [facility] [address] [place] [address] Larissa Viveros NP [address] [place] [address] Drug-induced constipation (Primary Dx); Gastroesophageal reflux disease, unspecified whether esophagitis present Social History Tobacco Use Types Packs/Day Years [...] the past 12 months, has t he [employer], gas, oil or water company threatened to [...] AM EDT documented as of this encounter Functional Status * Over the past 2 weeks, how often have you been bothered by any of the following problems? Question Answer Date of Assessment Author Patient Health Questionnaire -2 Score 4 01/17/2025 4:20 PM HAKANT Norberto Dc [place] * Little interest or pleasure in doing things Answer Date of Assessment Author Nearly every day 01/17/2025 4:20 PM Norberto Greene [place] * Feeling down, depressed, or hopeless Answer Date of Assessment Author Several days 01/17/2025 4:20 PM HAKANT Dennis Dc MA * Trouble falling or staying asleep, or sleeping too much Answer Date of Assessment Author Nearly every day 01/17/2025 4:20 PM Norberto Greene MA * Feeling tired or having little energy Answer Date of Assessment Author Not at all 01/17/2025 4:20 PM Dennis Greene [place] * Poor appetite or overeating Answer Date of Assessment Author Nearly every day 01/17/2025 4:20 PM Norberto Greene MA * Feeling bad about yourself - or that you are a failure or have let yourself or your family down Answer Date of Assessment Author Several days 01/17/2025 4:20 PM Dennis Greene MA * Trouble concentrating on things, such as reading the newspaper or watching television Answer Date of Assessment Author Several days 01/17/2025 4:20 PM Dennis Greene MA * Moving or speaking so slowly that other people could have noticed? Or the opposite - being so fidgety or restless that you have been moving around a lot more than usual. Answer Date of Assessment Author Not at all 01/17/2025 4:20 PM Dennis Greene MA * Thoughts that you would be better off or hurting yourself in some way Answer Date of Assessment Author Nearly every day 01/17/2025 4:20 PM Norberto Greene MA * Patient Health Questionnaire-9 Score Answer Date of Assessment Author 15 01/17/2025 4:20 PM Dennis Greene MA * How difficult have these problems made it for you to do your work, take care of things at home, or get along with other people? Answer Date of Assessment Author Somewhat difficult 01/17/2025 4:20 PM oNrberto Greene MA * Over the last 2 weeks, how often have you been bothered by any of the following problems? Question Answer Date of Assessment Author Feeling nervous, anxious, or on edge 3 01/17/2025 4:19 PM Norberto Greene MA Not being able to stop or co ntrol worrying 0 01/17/2025 4:19 PM Norberto Greene MA Worrying too much about diff erent things 3 01/17/2025 4:19 PM Norberto Greene MA Trouble relaxing 3 01/17/2025 4:19 PM Norberto Sampson MA Being so restless that it is hard to sit still 1 01/17/2025 4:19 PM Norberto Greene MA Becoming easily annoyed or irritable 3 01/17/2025 4:19 PM EDT Norberto Dc MA Feeling afraid as if somethi ng awful might happen 0 01/17/2025 4:19 PM EDT Norberto Dc MA ARIA-7 Total Score 13 01/17/2025 4:19 PM EDT Norberto Dc MA documented as of this encounter Plan of Treatment Upcoming Encounters Date Type Department Care Team (Late st Contact Info) Description 03/02/2025 11:30 AM EDT Office Visit [facility] [address] [place] [address] Larissa Viveros NP [address] [place] [address] 05/31/2025 1:00 PM EST Office Visit [facility] [address] [place] [address] Anderson, Anahi, OD [address] [place] [address] documented as of this encounter Visit Diagnoses Diagnosis Drug-induced constipation- Primary Other constipation Gastroesophageal reflux disease, unspecified whether esophagitis present documented in this encounter Additional Health Concerns Assessment Noted Time PHQ-9 Depression Total Score: 25 024 12:06 PM EDT documented as of this encounter Care Teams Health Tech Relationship Specialty Start Date End Date Larissa Viveros NP [address] [place] [address] PCP - General Family Medicine 11/12/23 documented as of this encounter
--- OUTSIDE RECORDS SUMMARY | 2025-02-14 18:21 | XMS_ITS | Encounter Summary ---
Author Organization [employer] Address [address] [facility] [address]t [place] [address] Care Team Providers Care Chemical Etch Operator Name Role Phone Larissa Viveros NP Primary Care Provider [phone] Encounter Details Date Type Department Care Team (Latest Contact Info) Description 02/14/2025 Travel Social History Tobacco Use Types Packs/Day Years [...] Description 03/02/2025 11:30 AM EDT Office Visit [facility] [address] [place] [address] Larissa Viveros NP [address] [place] [address] 05/31/2025 1:00 PM EST Office Visit [facility] [address] [place] [address] Anderson, Anahi, OD [address] [place] [address] documented as of this encounter Visit Diagnoses Not on filedocumented in this encounter Additional Health Concerns Assessment Noted Time PHQ-9 Depression Total Score: 15 025 4:20 PM EDT documented as of this encounter Care Teams Chemical Etch Operator Relationship Specialty Start Date End Date Larissa Viveros NP [address] [place] [address] PCP - General Family Medicine 11/12/23 documented as of this encounter
--- OUTSIDE RECORDS SUMMARY | 2025-02-14 18:21 | XMS_ITS | Clinical Summary ---
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 (11/06/2021 2:02 PM EDT) HEPATITIS C ANTIBODY NON-REACT ALLISON NON-REACT ALLISON [facility] INDEX 0.03 <1.00 [facility] Comment: HCV antibody was non-reactive. There is no laboratory evidence of HCV infection. In most cases, no further action is required. However, if recent HCV exposure is suspected, a test for HCV RNA (test code 12546) is suggested. For additional information please refer to http://education.Ooyala/faq/MGF75n9 (This link is being provided for informational/ educational purposes only.) 11/06/2021 2:02 PM EDT us Ananya [facility] HISTORICAL/NON ORDERABLE LABS Final Result Performing Organization Address [facility] [place]/ZIP Co de Phone Number [facility] [address] from Last 3 Months or Most Recently Relevant to Health Maintenance Insurance * Guarantor: Triston Quinn Account Type Relation to Patient Date of Phone Billing Address Personal/Family Self 1980 [address] [facility] [address] [place] [address] [facility] C3 DENTAL-[facility] MEDICAID STAND ADULT DENTAL [place] ADULT * Guarantor: Triston Quinn Account Type Relation to Patient Date of Phone Billing Address Personal/Family Self [address] [facility] [address] [place] [address] Care Teams Retail Coverage Merchandiser Relationship Specialty Start Date End Date Larissa Viveros NP [address] [place] [address] PCP - General Family Medicine 11/12/23
--- OUTSIDE RECORDS SUMMARY | 2025-02-14 18:21 | XMS_ITS | Encounter Summary ---
Author Organization [employer] Address [address] [facility] 7t [place] [address] Care Team Providers Care Release And Technical Records Clerk Name Role Phone Larissa Viveros NP Primary Care Provider [phone] Reason for Visit * Reason Onset Date Comments Med Refill 02/07/2025 Encounter Details Date Type Department Care Team ([facility] st Contact Info) Description 02/07/2025 Telephone [facility] MEDIC[facility] [address] [place] [address] Larissa Viveros NP [address] [place] [address] Med Refill Social History Tobacco Use Types Packs/Day Years [...] the past 12 months, has t he [employer], gas, oil or water company threatened to [...] encounter Miscellaneous Notes * Telephone Encounter - Scarlett Richmond LPN - 02/07/2025 9:00 AM EDT Please review unclear if pcp prescribes last seen 9.8. * Telephone Encounter - Nereyda Wells - 02/07/2025 8:59 AM EDT TC from pt requesting medication refill. Medications needing refill : ticagrelor (Brilinta) 90 MG tablet To be sent to: [id number] - [place] - [address] [facility] documented in this encounter Plan of Treatment Upcoming Encounters Date Type Department Care Team (Late st Contact Info) Description 03/02/2025 11:30 AM EDT Office Visit [facility] MEDICINE [address] [place] [address] Larissa Vievros NP [address] [place] [address] 05/31/2025 1:00 PM EST Office Visit [facility] OPTOMETRY [address] [place] [address] Anahi Barron, OD [address] [place] [address] documented as of this encounter Visit Diagnoses Not on filedocumented in this encounter Additional Health Concerns Assessment Noted Time PHQ-9 Depression Total Score: 15 025 4:20 PM EDT documented as of this encounter Care Teams Release And Technical Records Clerk Relationship Specialty Start Date End Date Larissa Viveros NP [address] [place] [address] PCP - General Family Medicine 11/12/23 documented as of this encounter
--- OUTSIDE RECORDS SUMMARY | 2025-02-14 18:21 | XMS_ITS | Encounter Summary ---
Author Organization [employer] Address [address] [facility] 7t [place] [address] Care Team Providers Care Firer Low Pressure Name Role Phone Larissa Viveros NP Primary Care Provider [phone] Reason for Visit * Reason Onset Date Comments Hospital Follow-up 01/06/2025 Encounter Details Date Type Department Care Team ([facility] Contact Info) Description 01/06/2025 Telephone [facility] MEDICINE [address] [place] [address] Larissa Viveros NP [address] [place] [address] Hospital Follow-up Social History Tobacco Use Types Packs/Day Years [...] the past 12 months, has t he [employer], gas, oil or water company threatened to [...] encounter Miscellaneous Notes * Telephone Encounter - Clare Plasencia - 01/06/2025 9:44 AM EDT Tc from from pt retuning call. Encounter 01/05 Contact pt at [phone] documented in this encounter Plan of Treatment Upcoming Encounters Date Type Department Care Team (Late st Contact Info) Description 03/02/2025 11:30 AM EDT Office Visit [facility] [address] [place] [address] Larissa Viveros, MACARIO [address] [place] [address] 05/31/2025 1:00 PM EST Office Visit [facility] OPTOMETRY [address] [place] [address] AndersonnAahi butler, OD [address] [place] [address] documented as of this encounter Visit Diagnoses Not on filedocumented in this encounter Additional Health Concerns Assessment Noted Time PHQ-9 Depression Total Score: 25 024 12:06 PM EDT documented as of this encounter Care Teams Firer Low Pressure Relationship Specialty Start Date End Date Larissa Viveros NP [address] [place] [address] PCP - General Family Medicine 11/12/23 documented as of this encounter
--- OUTSIDE RECORDS SUMMARY | 2025-02-14 18:21 | XMS_ITS | Encounter Summary ---
Author Organization [employer] Address [address] [facility] 7t [place] [address] Care Team Providers Care Pot Filler Name Role Phone Lilo Barrientos Primary Care Provider [phone] Larissa Viveros NP Primary Care Provider [phone] Reason for Visit * Reason Onset Date Comments Nurse Triage 10/27/2023 Encounter Details Date Type Department Care Team (Late st Contact Info) Description 10/27/2023 Telephone [facility] MEDICINE [address] [place] [address] Lilo Barrientos FNP [address] [place] [address] Nurse Triage Social History Tobacco Use Types Packs/Day Years Used Date Smoking Tobacco: Former Cigarettes Smokeless Tobacco: Never Alcohol Use Standard Drinks/Week Comments Never 0 (1 standard drink = 0.6 oz pur e alcohol) Sex and Gender Information Value Date Recorded Sex Assigned at Male 03/11/2022 10:30 AM EDT Legal Sex Male 10:30 AM EDT Gender Identity Male 03/11/2022 10:30 AM EDT Sexual Orientation Straight 03/11/2022 10 :30 AM EDT documented as of this encounter Miscellaneous Notes * Telephone Encounter - Marni Gaspar RN - 10/27/2023 12:35 PM EDT Triage call Pt reports rectal pain since 10/25/23. Pt reports history of polyp removal year ago or more. Pt reports when toileting on Friday Pt felt another polyp popped out in the same area and has experienced pain with BM ever since. Pt last BM was this morning. Neg for bleeding, constipation.Pt does report itchiness at rectal area. Pt reports has obtained prep H and is using this with somerelief. Pt is given home care advice of sitz baths, tylenol/ibuprofen for discomfort and possibly some prune juice in the mornings to soften stool for time being. Pt agreed with home care advised. Apt with [employer] Yuli 10/30/23 @ 1115am. Pt is offered WIC today but declines for apt scheduled instead. Ptis at work at time of call. Insurance is verified as active prior to booking. Protocol Used: Rectal Symptoms (Adult) Protocol-Based Disposition: See in Office or Video Visit Today or Tomorrow Override (Final) Disposition: See in Office or Video Visit within 3 Days Override Reason: No appointments available Positive Triage Question: * Patient wants to be seen * All higher-acuity triage questions were negative Care Advice Discussed: * Reassurance and Education - Mild Rectal Pain or Irritation * Warm Saline SITZ Baths - For Rectal Symptoms * Warm Saline Sitz Bath - How to Make a SITZ Bath * Expected Course * Reasons To Call Back - Severe rectal pain - Rectal pain not improved after 3 days - Rectal bleeding is more than minor (e.g., more than just blood on toilet paper or few drops) - Rectal bleeding is minor but is ongoing (e.g., occurs over 2 times) - You become worse * Telephone Encounter - Rosemarie Jeffrey - 10/27/2023 11:28 AM EDT Patient calling to report pulpitis. Patient speaks Korean. Advised triage nurse will call patient back. documented in this encounter Plan of Treatment Upcoming Encounters Date Type Department Care Team (Late st Contact Info) Description 03/02/2025 11:30 AM EDT Office Visit [facility] MEDICINE [address] [place] [address] Larissa Viveros NP [address] [place] [address] 05/31/2025 1:00 PM EST Office Visit [facility] OPTOMETRY [address] [place] [address] Anahi Barron OD [address] [place] [address] documented as of this encounter Visit Diagnoses Not on filedocumented in this encounter Care Teams Pot Filler Relationship Specialty Start Date End Date Lilo Barrientos FNP [address] [place] [address] PCP - General Family Medicine 10/04/22 11/11/23 Larissa Viveros NP [address] [place] [address] PCP - General Family Medicine 11/12/23 documented as of this encounter
== END 2025-02-14 16:06 | disposition home or self-care (01) ==
LOC: HO.HHCX 16:05
PROVIDERS: Visit Provider Nurse Practitioner
DX: R06.02 Shortness of breath (principal)
CPT/HCPCS: 71046

== ENCOUNTER → 2025-02-14 16:06 | Outpatient (BNV) | payer MEDICAID, SELFPAY | PROVIDERS: Visit Provider Radiology Diagnostic Radiology | DX: R05.9 Cough, unspecified (principal) | CPT/HCPCS: 71046 ==

== ENCOUNTER 2025-02-14 16:46 | Outpatient (REF) | payer MEDICAID, SELFPAY ==
--- OUTSIDE RECORDS SUMMARY | 2025-02-14 15:00 | XMS_ITS | Encounter Summary ---
Author Organization [employer] Address [address] [facility] 7t [place] [address] Care Team Providers Care Stove Cleaner Name Role Phone Larissa Viveros NP Primary Care Provider [phone] Reason for Visit * Reason Comments Shortness of Breath Encounter Details Date Type Department Care Team ([facility] st Contact Info) Description 02/14/2025 3:00 PM EDT Office Visit [facility] [address] [place] [address] Shortness of breath (Primary Dx); Wheezing; Acute [...] Sign Reading Time Taken Comments Blood Pressure 152/86 02/14/2025 4:00 PM EDT Pulse 73 02/14/2025 3:36 PM [...] Description 03/02/2025 11:30 AM EDT Office Visit [facility] [address] [place] [address] Larissa Viveros NP [address] [place] [address] 05/31/2025 1:00 PM EST Office Visit [facility] [address] [place] [address] Anahi Barron, OD [address] [place] [address] documented as of this encounter Procedures Procedure Name Priority Date/Time Associated Diagnosis Comments RESPIRATORY VIRAL PANEL PCR Routine 02/14/2025 4:46 PM EDT Shortness of breath Wheezing Acute cough XR CHEST 2 VIEWS Routine 02/14/2025 4:20 PM EDT Shortness of breath documented in this encounter Results * (ABNORMAL) Respiratory Viral Panel PCR (02/14/2025 4:46 PM EDT) Adenovirus PCR Not Detected Not Detect. [facility] Bordetella pertussis PCR Not Detected Not Detect. [facility] Comment:Interpret results wi th caution. If B. pertussis isspecifically suspected, additional testing using analternate method is recommended. Bordetella parapertussis PCR Not Detected Not Detect. [facility] Chlamydia pneumoniae PCR Not Detected Not Detect. [facility] Coronavirus 229E PCR Not Detected Not Detect. [facility] Coronavirus HKU1 PCR Not Detected Not Detect. [facility] Coronavirus NL63 PCR Not Detected Not Detect. [facility] Coronavirus OC43 PCR Not Detected Not Detect. [facility] SARS-CoV-2 PCR Not Detected Not Detect. [facility] Comment:SARS-CoV-2 not detec tarah by real-time RT-PCR.Note: If clinical suspicion for Sars-CoV-2 is high, continueto maintain precautions and consider repeat testing.Test results should be interpreted in the context ofclinical findings and other laboratory data.Rare polymorphisms exist that could lead to false-negativeor false-positive results. If results do not match theclinical findings, additional testing should be considered.Results reported to [facility].This test has been authorized by the FDA under the EmergencyUse Authorization (EUA) for use by authorized laboratories. Influenza A PCR Not Detected Not Detect. [facility] Influenza A Subtype H1 Not Detected Not Detect. [facility] Influenza A H1-2009 PCR Not Detected Not Detect. [facility] Influenza A Subtype H3 Not Detected Not Detect. [facility] Influenza B PCR Not Detected Not Detect. [facility] Human metapneumovirus PCR Not Detected Not Detect. [facility] Rhino/Enterovirus PCR Detected(A) Not Detect. [facility] Mycoplasma pneumoniae PCR Not Detected Not Detect. [facility] Parainfluenza 1 PCR Not Detected Not Detect. [facility] Parainfluenza 2 PCR Not Detected Not Detect. [facility] Parainfluenza 3 PCR Not Detected Not Detect. [facility] Parainfluenza 4 PCR Not Detected Not Detect. [facility] RSV PCR Not Detected Not Detect. [facility] Resp Panel NA Note See Note H [facility] Comment:All results must be correlated with clinical findings.Negative results should not be used as the sole basis fordiagnosis, treatment, or other management decisions.A negative result does not exclude the possibility of viralor bacterial infection. Negative results may occur from thepresence of sequence variants in the region targeted by theassay, the presence of inhibitors, an infection caused by anorganism not detected by the panel, or lower respiratorytract infections that are not detected by a nasopharyngealswab specimen. Test results may also be affected byconcurrent antiviral/antibacterial therapy or levels oforganism in the specimen that are below the limit ofdetection for this test.This assay is performed by Multiplexed PCR, utilizing [employer] Film [employer]. Swab 02/14/2025 4:46 PM EDT 02/15/2025 1:22 PM EDT us Barbra Arellano HEMODIALYSIS PATIENT CARE SPECIALIST LAB BLOOD ORDERABLES Final Resu lt [facility] [address] [place] [address] [phone] * XR Chest 2 Views (02/14/2025 4:20 PM EDT) Anatomical Region Laterality Modality Chest Radiographic Priya ging 02/14/2025 4:20 PM EDT Narrative 02/14/2025 4:34 PM EDT [address] [address] XRay Report Signed Patient: Triston Quinn MR#: [id number] : 1980 Acct:[id number] Age/Sex: 44 / M ADM Date: 02/14/25 Loc: [facility] Attending Dr: Barbra Arellano Ordering Physician: Barbra Arellano Date of Service: 02/14/25 Procedure(s): XR chest 2V Accession Number(s): [id number] cc: Barbra Arellano Reason for Exam: shortness [...] 02/14/25 1631 DD/ 1620 TD/TT: 02/14/25 1624 Manager Medicaid: Procedure Note Donotuseinterpreter, Image - 02/14/[address] [address] XRay Report Signed Patient: Triston Quinn EMR#: M [id number] : 1980Acct:[id number] Age/Sex: 44 / MADM Date: 02/14/25 Loc: [facility] Attending Dr: Barbra Arellano Ordering Physician: Barbra Arellano Date of Service: 02/14/25 Procedure(s): XR chest 2V Accession Number(s): [id number] cc: Barbra Arellano Reason for Exam: shortness [...] Donte Holly MD 02/14/2025 04:31 PM EDT RP Dictated By: Donte Holly MD Signed By: <Electronically signed by Donte Holly MD in OV> 02/14/25 1631 DD/ 1620 TD/TT: 02/14/25 1624 Manager Medicaid: Barbra Arellano HEMODIALYSIS PATIENT CARE SPECIALIST IMG XR PROCEDURES Final Result documented in [...] documented as of this encounter Care Teams Stove Cleaner Relationship Specialty Start Date End Date Larissa Viveros NP [address] [place] [address] PCP - General Family Medicine 11/12/23 documented as of this encounter
[2025-02-15 15:47] LABS: Chlamydia pneumoniae PCR Not Detected (Not Detect.); Coronavirus 229E PCR Not Detected (Not Detect.); Coronavirus HKU1 PCR Not Detected (Not Detect.); Coronavirus NL63 PCR Not Detected (Not Detect.); Coronavirus OC43 PCR Not Detected (Not Detect.); RSV PCR Not Detected (Not Detect.); Rhino/Enterovirus PCR Detected (Not Detect.)
[2025-02-15 15:49] LABS: SARS-CoV-2 PCR Not Detected (Not Detect.)
[2025-02-15 15:50] LABS: Influenza A H1 PCR Not Detected (Not Detect.); Influenza A H1-2009 PCR Not Detected (Not Detect.); Influenza A H3 PCR Not Detected (Not Detect.)
--- OUTSIDE RECORDS SUMMARY | 2025-02-15 16:22 | XMS_ITS | Encounter Summary ---
Author Organization [employer] Address [address] [facility] 7t [place] [address] Care Team Providers Care Sponge Fisherman Name Role Phone Larissa Viveros NP Primary Care Provider Reason for Visit * Reason Onset Date Comments Results 02/15/2025 Encounter Details Date Type Department Care Team ([facility] Contact Info) Description 02/15/2025 Telephone [facility] MEDICINE [address] [place] [address] Larissa Viveros NP [address] [place] [address] Results Social History Tobacco Use Types Packs/Day Years [...] encounter Miscellaneous Notes * Telephone Encounter - Gricelda Gregg RN - 02/15/2025 9:53 AM EDT TC from pt requesting call back regarding Results. Type of results: Labs Date when done: 02/14/25 Facility: [facility] Please contact pt at [phone]. TC returned to pt requesting Respiratory Viral Panel which has not resulted as of this time. Left amessage that pt will be contacted with results as soon as possible. * Telephone Encounter - He Carter - 02/15/2025 9:29 AM EDT TC from pt requesting call back regarding Results. Type of results: Labs Date when done: 02/14/25 Facility: [facility] Please contact pt at [phone]. documented in this encounter Plan of Treatment Upcoming Encounters Date Type Department Care Team (Late st Contact Info) Description 03/02/2025 11:30 AM EDT Office Visit [facility] MEDICINE [address] [place] [address] Larissa Viveros NP [address] [place] [address] 05/31/2025 1:00 PM EST Office Visit [facility] OPTOMETRY [address] [place], [place] [address] Anahi Barron, OD [address] [place] [address] documented as of this encounter Visit Diagnoses Not on filedocumented in this encounter Additional Health Concerns Assessment Noted Time PHQ-9 Depression Total Score: 15 01/17/ 025 4:20 PM EDT documented as of this encounter Care Teams Sponge Fisherman Relationship Specialty Start Date End Date Larissa Viveros NP [address] [place], [place] [phone] PCP - General Family Medicine 11/12/23 documented as of this encounter
--- OUTSIDE RECORDS SUMMARY | 2025-02-15 16:22 | XMS_ITS | Encounter Summary ---
Author Organization [employer] Address [address] [facility] [address]t [place] [address] Care Team Providers Care Kayaking Instructor Name Role Phone Larissa Viveros NP Primary Care Provider [phone] Reason for Visit * Reason Onset Date Comments Med Refill 02/07/2025 Encounter Details Date Type Department Care Team ([facility] st Contact Info) Description 02/07/2025 Telephone [facility] MEDICINE [address] [place] [address] Larissa Viveros NP [address] [place] [address] Med Refill Social History Tobacco Use Types [...] the past 12 months, has t he [employer], gas, oil or water company threatened to [...] 90 MG tablet To be sent to: [id number] - [place] - [address] [facility] documented in this encounter Plan of Treatment Upcoming Encounters Date Type Department Care Team (Late st Contact Info) Description 03/02/2025 11:30 AM EDT Office Visit [facility] MEDICINE [address] [place] [address] Larissa Viveros NP [address] [place] [address] 05/31/2025 1:00 PM EST Office Visit [facility] OPTOMETRY [address] [place] [address] Anahi Barron, OD [address] [place] [address] documented as of this encounter Visit Diagnoses Not on filedocumented in this encounter Additional Health Concerns Assessment Noted Time PHQ-9 Depression Total Score: 15 025 4:20 PM EDT documented as of this encounter Care Teams Kayaking Instructor Relationship Specialty Start Date End Date Larissa Viveros NP [address] [place] [address] PCP - General Family Medicine 11/12/23 documented as of this encounter
--- OUTSIDE RECORDS SUMMARY | 2025-02-15 16:22 | XMS_ITS | Encounter Summary ---
Author Organization [employer] Address [address] [facility] 7t [place] [address] Care Team Providers Care Fire Investigator Name Role Phone Larissa Viveros NP Primary Care Provider [phone] Reason for Visit * Reason Onset Date Comments Nurse Triage 12/30/2024 Encounter Details Date Type Department Care Team ([facility] st Contact Info) Description 12/30/2024 Telephone [facility] MED[facility]INE [address] [place] [address] Larissa Viveros NP [address] [place] [address] Nurse Triage Social History Tobacco Use Types [...] to Triston Cote to triage below at [phone]. Reports having sx of increased palpitations and [...] Pt advised of disposition, agrees to seek [facility] now for evaluation of sx. Pt agrees to contact EMS for transport. Sent to team for [facility] status check PRN. Protocol Used: Chest [...] Reason: Chest pain Please contact pt at [phone]. documented in this encounter Plan of Treatment Upcoming Encounters Date Type Department Care Team (Late st Contact Info) Description 03/02/2025 11:30 AM EDT Office Visit [facility] MED[facility] [address] [place] [address] Larissa Viveros NP [address] [place] [address] 05/31/2025 1:00 PM EST Office Visit [facility] OPTOMETRY [address] [place] [address] Anderson, Anahi, OD [address] [place] [address] documented as of this encounter Visit Diagnoses Not on filedocumented in this encounter Additional Health Concerns Assessment Noted Time PHQ-9 Depression Total Score: 25 024 12:06 PM EDT documented as of this encounter Care Teams Fire Investigator Relationship Specialty Start Date End Date Larissa Viveros NP [address] [place] [address] PCP - General Family Medicine 11/12/23 documented as of this encounter
--- OUTSIDE RECORDS SUMMARY | 2025-02-15 16:22 | XMS_ITS | Encounter Summary ---
Author Organization [employer] Address [address] [facility] 7t [place] [address] Care Team Providers Care Crystal Calibrator Name Role Phone Larissa Viveros NP Primary Care Provider [phone] Encounter Details Date Type Department Care Team ([facility] st Contact Info) Description 01/14/2025 Orders Only [facility] [address] [place] [address] Larissa Viveros NP [address] [place] [address] Drug-induced constipation (Primary Dx); Gastroesophageal reflux disease, [...] the past 12 months, has t he [facility], gas, oil or water company threatened to [...] Assessment Author Somewhat difficult 01/17/2025 4:20 PM Norberto Greene [place] * Over the last 2 [...] 11:30 AM EDT [facility] [address] [place] [address] Larissa Viveros NP [address] [place] [address] 05/31/2025 1:00 PM EST Office Visit [facility] [address] [place] [address] Anderson, Anahi, OD [address] [place] [address] documented as of this encounter Visit Diagnoses Diagnosis Drug-induced constipation- Primary Other constipation Gastroesophageal reflux disease, unspecified whether esophagitis present documented in this encounter Additional Health Concerns Assessment Noted Time PHQ-9 Depression Total Score: 25 024 12:06 PM EDT documented as of this encounter Care Teams Crystal Calibrator Relationship Specialty Start Date End Date Larissa Viveros NP [address] [place] [address] PCP - General Family Medicine 11/12/23 documented as of this encounter
--- OUTSIDE RECORDS SUMMARY | 2025-02-15 16:22 | XMS_ITS | Encounter Summary ---
Author Organization [employer] Address [address] [facility] 7t [place] [address] Care Team Providers Care Locomotive Mechanic Name Role Phone Lilo Barrientos Primary Care Provider [phone] Larissa Viveros NP Primary Care Provider [phone] Reason for Visit * Reason Onset Date Comments Nurse Triage 10/27/2023 Encounter Details Date Type Department Care Team (Late st Contact Info) Description 10/27/2023 Telephone [facility] MEDICINE [address] [place] [address] Lilo Barrientos FNP [address] [place] [address] Nurse Triage Social History Tobacco Use Types [...] agreed with home care advised. Apt with [employer] Yuli 10/30/23 @ 1115am. Pt is offered [...] Patient calling to report pulpitis. Patient speaks Irish. Advised triage nurse will call patient back. documented in this encounter Plan of Treatment Upcoming Encounters Date Type Department Care Team (Late st Contact Info) Description 03/02/2025 11:30 AM EDT Office Visit [facility] MED[facility]INE [address] [place] [address] Larissa Viveros NP [address] [place] [address] 05/31/2025 1:00 PM EST Office Visit [facility] OPTOMETRY [address] [place] [address] Anahi Barron OD [address] [place] [address] documented as of this encounter Visit Diagnoses Not on filedocumented in this encounter Care Teams Locomotive Mechanic Relationship Specialty Start Date End Date Lilo Barrientos FNP [address] [place] [address] PCP - General Family Medicine 10/04/22 11/11/23 Larissa Viveros NP [address] [place] [address] PCP - General Family Medicine 11/12/23 documented as of this encounter
--- OUTSIDE RECORDS SUMMARY | 2025-02-15 16:22 | XMS_ITS | Encounter Summary ---
Author Organization [employer] Address [address] [facility] 7t [place] [address] Care Team Providers Care Dough Molder Name Role Phone Larissa Viveros NP Primary Care Provider [phone] Encounter Details Date Type Department Care Team ([facility] st Contact Info) Description 02/14/2025 Results Follow-Up [facility] [address] [place] [address] Barbra Arellano NP [address] [place] [address] XR Chest 2 Views Social History Tobacco Use Types Packs/Day Years [...] Description 03/02/2025 11:30 AM EDT Office Visit [facility]INE [address] [place] [address] Larissa Viveros NP [address] [place] [address] 05/31/2025 1:00 PM EST Office Visit [facility] OPTOMETRY [address] [place] [address] Anderson, Anahi, OD [address] [place] [address] documented as of this encounter Visit Diagnoses Not on filedocumented in this encounter Additional Health Concerns Assessment Noted Time PHQ-9 Depression Total Score: 15 025 4:20 PM EDT documented as of this encounter Care Teams Dough Molder Relationship Specialty Start Date End Date Larissa Viveros NP [address] [place] [address] PCP - General Family Medicine 11/12/23 documented as of this encounter
--- OUTSIDE RECORDS SUMMARY | 2025-02-15 16:22 | XMS_ITS | Encounter Summary ---
Author Organization [employer] Address [address] [facility] 7t [place] [address] Care Team Providers Care Environmental Designer Name Role Phone Larissa Viveros NP Primary Care Provider [phone] Encounter Details Date Type Department Care Team [...] Description 03/02/2025 11:30 AM EDT Office Visit [facility] MEDICINE [address] [place] [address] Larissa Viveros NP [address] [place] [address] 05/31/2025 1:00 PM EST Office Visit [facility] OPTOMETRY [address] [place] [address] Anderson, Anahi, OD [address] [place] [address] documented as of this encounter Visit Diagnoses Not on filedocumented in this encounter Additional Health Concerns Assessment Noted Time PHQ-9 Depression Total Score: 15 025 4:20 PM EDT documented as of this encounter Care Teams Environmental Designer Relationship Specialty Start Date End Date Larissa Viveros NP [address] [place] [address] PCP - General Family Medicine 11/12/23 documented as of this encounter
--- OUTSIDE RECORDS SUMMARY | 2025-02-15 16:22 | XMS_ITS | Encounter Summary ---
Author Organization [employer] Address [address] [place] [address] Care Team Providers Care Doffer Name Role Phone Larissa Viveros NP Primary Care Provider [phone] Reason for Visit * Reason Onset Date Comments Hospital Follow-up 01/06/2025 Encounter Details Date Type Department Care Team ([facility] Contact Info) Description 01/06/2025 Telephone [facility] MEDICINE [address] [place] [address] Larissa Viveros NP [address] [place] [address] Hospital Follow-up Social History Tobacco Use Types [...] the past 12 months, has t he [employer], gas, oil or water company threatened to [...] retuning call. Encounter 01/05 Contact pt at [phone] documented in this encounter Plan of Treatment Upcoming Encounters Date Type Department Care Team (Late st Contact Info) Description 03/02/2025 11:30 AM EDT Office Visit [facility] MEDICINE [address] [place] [address] Larissa Viveros, [place] [address] [place] [address] 05/31/2025 1:00 PM EST Office Visit [facility] OPTOMETRY [address] [place] [address] AndersonAnahi butler, OD [address] [place] [address] documented as of this encounter Visit Diagnoses Not on filedocumented in this encounter Additional Health Concerns Assessment Noted Time PHQ-9 Depression Total Score: 25 024 12:06 PM EDT documented as of this encounter Care Teams Doffer Relationship Specialty Start Date End Date Larissa Viveros NP [address] [place] [address] PCP - General Family Medicine 11/12/23 documented as of this encounter
--- OUTSIDE RECORDS SUMMARY | 2025-02-15 16:22 | XMS_ITS | Clinical Summary ---
Author Organization [employer] Address [address] [facility] 7[address] [place] [address] Care Team Providers Care Coagulating Operator Name Role Phone Larissa Viveros NP Primary Care Provider [phone] Allergies No known active allergies Medications * [...] 60 tablet 3 01/15/20 25 026 Active ticagrelor (Brilinta) 90 MG tablet Take 1 tablet (90 mg) by mouth 2 times daily. 180 tablet 02/08/20 25 Active albuterol 108 (90 Base) MCG/ACT inhalerIndicati ons:Shortness of breath,Wheezing Inhale 2 puffs every 6 (six) hours if needed for wheezing. 18 g 1 02/15/20 026 Active fluticasone (Flonase) 50 MCG/ACT nasal sprayIndication s:Acute cough Administer 1 spray into each nostril 2 times daily. Shake gently. Before first use, prime pump. After use, clean tip and replace cap. 16 g 1 02/15/20 25 026 Active ticagrelor (Brilinta) 90 MG tablet Take 1 tablet by mouth 2 times daily. 01/05/20 025 Discontinued(R eorder (will not trigger notification to Pharmacy)) Tirzepatide-Lemuel ght Management (Zepbound) 2.5 MG/0.5ML solution auto-injectorIn dications:NSTEM I (non-ST elevated myocardial infarction) ([facility]),Morbid obesity (CMS/HCC) ([facility]),Resistant hypertension Inject 0.5 mL (2.5 mg) under the skin 1 (one) time per week for 28 days. 2 mL 01/18/20 025 Hospital, Clinic, or Other Facility Administered Medication [...] if worsening pain despite interventions Morbid obesity ([facility]/HCC) 11/28/2023 Assessment & Plan (02/02/2025 9:44 AM [...] organization. Date Type Department Care Team Description 02/15/2025 Telephone [facility] [address] [place] [phone] Larissa Viveros NP Results 02/14/2025 3:00 PM EDT Office Visit [facility] [address] [place] [address] Shortness of breath (Primary Dx); Wheezing; Acute cough; Elevated blood pressure reading in office with diagnosis of hypertension 02/14/2025 Results Follow-Up [facility] [address] [place] [address] Barbra Arellano NP XR Chest 2 Views 02/14/2025 Travel 02/07/2025 Orders Only [facility] [address] [place] [phone] Larissa Viveros NP NSTEMI (non-ST elevated myocardial infarction) (CMS/HCC) (Primary Dx); H/O heart artery stent 02/07/[address] [address] Larissa Viveros NP Med Refill 01/31/[address] [address] Larissa Viveros NP Medication Question 01/25/[address] [address] Larissa Viveros NP Call back request 01/20/[address] [address] Larissa Viveros NP February01/18/[address] [address] Heather Siddiqui RN 01/17/2025 4:00 PM EDT Office Visit [address] [address] Larissa Viveros NP NSTEMI (non-ST elevated myocardial infarction) (CMS/HCC) (Primary Dx); Recurrent major depressive disorder, remission status unspecified (CMS/HCC); Morbid obesity (CMS/HCC); Resistant hypertension; Obstructive sleep apnea syndrome 01/17/2025 Travel 01/14/2025 Orders Only [facility] [address] [place] [address] Larissa Viveros NP Drug-induced constipation (Primary Dx); Gastroesophageal reflux disease, unspecified whether esophagitis present 01/14/[address] [address] Larissa Viveros NP Chart Prep 01/06/2025 Patient Outreach [address] [address] Larissa Viveros NP Transition Of Care (Tcm) (HDF scheduled) 01/06/[address] [address] Larissa Viveros NP Hospital Follow-up 01/06/2025 Patient Outreach [facility] [address] [place] [address] Larissa Viveros NP Transition Of Care (Tcm) (F unscheduled) 01/05/2025 Patient Outreach [address] [address] Larissa Viveros NP Transition Of Care (Tcm) (HDF unscheduled) 01/03/2025 Patient Outreach [address] [address] Larissa Viveros NP Transition Of Care (Tcm) (HDF unscheduled ) 12/30/2024 Orders Only GENERIC EXTERNAL DATA DEPARTMENT Provider, Generic External Data 12/30/[address] [address] Larissa Viveros NP Nurse Triage 11/30/[address] [address] Larissa Viveros NP Referral 11/30/2024 Orders Only [facility] External Provider, [facility] from Last 3 Months Immunizations Immunization [...] Description 03/02/2025 11:30 AM EDT Office Visit [facility] [address] [place] [address] Larissa Viveros, MANAGING PRINCIPAL [address] [place] [address] 05/31/2025 1:00 PM EST Office Visit [facility] [address] [place] [address] Anderson, Anahi, OD [address] [place] [address] Health Maintenance Due Date Last Done Comments [...] Recently Relevant to Health Maintenance Results * (ABNORMAL) Respiratory Viral Panel PCR (02/14/2025 4:46 PM EDT) Adenovirus PCR Not Detected Not Detect. [facility] Bordetella pertussis PCR Not Detected Not Detect. [facility] Comment:Interpret results wi th caution. If B. pertussis isspecifically suspected, additional testing using analternate method is recommended. Bordetella parapertussis PCR Not Detected Not Detect. [facility] Chlamydia pneumoniae PCR Not Detected Not Detect. [facility] Coronavirus 229E PCR Not Detected Not Detect. [facility] Coronavirus HKU1 PCR Not Detected Not Detect. [facility] Coronavirus NL63 PCR Not Detected Not Detect. [facility] Coronavirus OC43 PCR Not Detected Not Detect. [facility] SARS-CoV-2 PCR Not Detected Not Detect. [facility] Comment:SARS-CoV-2 not detec tarah by real-time RT-PCR.Note: If clinical suspicion for Sars-CoV-2 is high, continueto maintain precautions and consider repeat testing.Test results should be interpreted in the context ofclinical findings and other laboratory data.Rare polymorphisms exist that could lead to false-negativeor false-positive results. If results do not match theclinical findings, additional testing should be considered.Results reported to [facility].This test has been authorized by the FDA under the EmergencyUse Authorization (EUA) for use by authorized laboratories. Influenza A PCR Not Detected Not Detect. [facility] Influenza A Subtype H1 Not Detected Not Detect. [facility] Influenza A H1-2009 PCR Not Detected Not Detect. [facility] Influenza A Subtype H3 Not Detected Not Detect. [facility] Influenza B PCR Not Detected Not Detect. [facility] Human metapneumovirus PCR Not Detected Not Detect. [facility] Rhino/Enterovirus PCR Detected(A) Not Detect. [facility] Mycoplasma pneumoniae PCR Not Detected Not Detect. [facility] Parainfluenza 1 PCR Not Detected Not Detect. [facility] Parainfluenza 2 PCR Not Detected Not Detect. [facility] Parainfluenza 3 PCR Not Detected Not Detect. [facility] Parainfluenza 4 PCR Not Detected Not Detect. [facility] RSV PCR Not Detected Not Detect. [facility] Resp Panel NA Note See Note H [facility] Comment:All results must be correlated with [...] assay is performed by Multiplexed PCR, utilizing Verified Person Film Array. Swab 02/14/2025 4:46 PM EDT 02/15/2025 1:22 PM EDT Barbra Arellano MANAGING PRINCIPAL LAB BLOOD ORDERABLES Final Resu lt Performing Organization Address City/State/[facility] Co de Phone Number [facility] [address] [place] [phone] * XR Chest 2 Views (02/14/2025 4:20 PM EDT) Only the most recent of2 resultswithin the time period is included. Anatomical Region Laterality Modality Chest Radiographic Priya ging 02/14/2025 4:20 PM EDT Narrative 02/14/2025 4:34 PM EDT [address] [address] XRay Report Signed Patient: Triston Quinn MR#: M [id number] : 1980 Acct:[id number] Age/Sex: 44 / M ADM Date: 02/14/25 Loc: HO.HHCX Attending Dr: Barbra Arellano Ordering Physician: Barbra Arellano Date of Service: 02/14/25 Procedure(s): XR chest 2V Accession Number(s): [id number] cc: Barbra Arellano Reason for Exam: shortness [...] 02/14/25 1631 DD/ 1620 TD/TT: 02/14/25 162 Motor Polarizer: Procedure Note Donotuseinterpreter, Image - 02/14/[address] [address] XRay Report Signed Patient: Triston Quinn EMR#: M [id number] : 1980Acct:[id number] Age/Sex: 44 / MADM Date: 02/14/25 Loc: HO.HHCX Attending Dr: Barbra Arellano Ordering Physician: Barbra Arellano Date of Service: 02/14/25 Procedure(s): XR chest 2V Accession Number(s): [id number] cc: Barbra rAellano Reason for Exam: shortness of breath EXAMINATION: [...] 02/14/25 1631 DD/ 1620 TD/TT: 02/14/25 162 Motor Polarizer: Barbra Arellano MANAGING PRINCIPAL IMG XR PROCEDURES Final Result * CTA Chest PE Protocal (12/30/2024 8:47 PM EDT) Anatomical Region Laterality Modality Body, Chest Computed Tomogra phy 12/30/2024 8:47 PM EDT Narrative 12/30/2024 8:48 PM EDT [address] [address] [address] Scan Report Signed Patient: Tristno Quinn MR#: M [id number] : 1980 Acct:[id number] Age/Sex: 44 / M ADM Date: 12/30/24 Loc: .ED Attending Dr: Ordering Physician: Gamaliel Posey DO Date of Service: 12/30/24 Procedure(s): CT angio chest PE protocol Accession Number(s): [id number] cc: [facility]; Gamaliel Posey DO Report Number: [id number]: Total DLP = 637.00 mGy-cm CLINICAL HISTORY: [...] in OV> 12/30/242047 DD/ 46 TD/TT: 12/30/242046 Motor Polarizer: Procedure Note Donotuseinterpreter, Image - 12/30/[address] [address] [address] Scan Report Signed Patient: Triston Quinn EMR#: M [id number] : 1980Acct:[id number] Age/Sex: 44 / MADM Date: 12/30/24 Loc: HO.ED Attending Dr: Ordering Physician: Gamaliel Posey DO Date of Service: 12/30/24 Procedure(s): CT angio chest PE protocol Accession Number(s): [id number] cc: [facility]; Gamaliel Posey DO Report Number: [id number]: Total DLP = 637.00 mGy-cm CLINICAL HISTORY: [...] in OV> 12/30/242047 DD/ 46 TD/TT: 12/30/242046 Motor Polarizer: [facility] External Provider IMG CT PROCEDURES Final Result * (ABNORMAL) APTT on Heparin (12/30/2024 8:35 PM EDT) Only the most recent of2 resultswithin the time period is included. PTT on Heparin 30.8(L) 53 - 77.9 SEC [facility] Comment:For information rega rding the monitoring of heparin therapy,please refer to Pharmacy. 12/30/2024 8:35 PM EDT 12/30/2024 8:37 PM EDT us Generic External Data Provider LAB BLOOD ORDERAB LES Final Result Performing Organization Address [facility] Co de Phone Number [facility] [address] [place] [phone] * Prothrombin Time-INR (12/30/2024 8:35 PM EDT) Only the most recent of2 resultswithin the time period is included. Pathologist [facility] Prothrombin Time 11.4 10.9 - 12.4 SEC [facility] INTERNATIONAL NORM RATIO 1.0 0.9 - 1.1 [facility] Comment:INTERNATIONAL NORMAL IZED RATIO (INR) [...] ORDERAB LES Final Result Performing Organization Address [facility] Co de Phone Number [facility] [address] [place] [phone] * (ABNORMAL) CBC (12/30/2024 8:35 PM EDT) Pathologist [facility] White Blood Count 10.0 4.8 - 10.8 X10*3/uL [facility] Red Blood Count 4.84 4.60 - 5.80 X10*6/uL [facility] Hemoglobin 13.4(L) 14.0 - 18.0 g/dl [facility] Hematocrit 40.3(L) 42.0 - 52.0 % [facility] Mean Corpuscular Volume 83.3 80.0 - 98.0 fL [facility] Mean Corpuscular Hemoglobin 27.7 27.0 - 33.0 pg [facility] Mean Corpuscular HGB Conc 33.3 31.0 - 36.0 g/dl [facility] Red Cell Distribution Width 13.1 11.0 - 16.0 % [facility] Platelet Count 195 160 - 400 X10*3/uL [facility] Mean Platelet Volume 11.7 9.4 - 12.4 fL [facility] NRBC Pct Auto 0.0 0.0 - 0.2 /100WBC [facility] NRBC Abs Auto 0.000 0.0 - 0.012 X10*3/uL [facility] 12/30/2024 8:35 PM EDT 12/30/2024 8:37 PM EDT us Generic External Data Provider LAB BLOOD ORDERAB LES Final Result Performing Organization Address [facility] Co de Phone Number [facility] [address] [place] [phone] [phone] * (ABNORMAL) High Sensitivity Troponin I (12/30/2024 4:33 PM EDT) Only the most recent of2 resultswithin the time period is included. TROPONIN I HIGH SENSITIVITY 295.1(HH) <3.5 - 35.0 ng/L [facility] Comment:Critical value for t est(s):TROP-IHS Results called to brianna back by:MANISH Person calling: HARIKA Date:[id number]:[id number] Luu high sensitivity Troponin- I results should beused in conjunction with other diagnostic information suchas ECG, clinical observations and information, and patientsymptoms to aid in the diagnosis of [place]. 12/30/2024 4:33 PM EDT 12/30/2024 4:39 PM EDT us Generic External Data Provider LAB BLOOD ORDERAB LES Final Result Performing Organization Address City/[facility]/ZIP Co de Phone Number [facility] [address] [place] [phone] * TSH with Reflex to Free T4 (12/30/2024 2:38 PM EDT) TSH reflex Free T4 0.91 0.32 - 4.0 uIU/mL [facility] 12/30/2024 2:38 PM EDT 12/30/2024 2:45 PM EDT us Generic External Data Provider LAB BLOOD ORDERAB LES Final Result [facility] [address] [place] [address] [phone] * CBC auto differential (12/30/2024 2:38 PM EDT) Pathologist [facility] White Blood Count 8.6 4.8 - 10.8 X10*3/uL [facility] Red Blood Count 5.10 4.60 - 5.80 X10*6/uL [facility] Hemoglobin 14.2 14.0 - 18.0 g/dl [facility] Hematocrit 42.5 42.0 - 52.0 % [facility] Mean Corpuscular Volume 83.3 80.0 - 98.0 fL [facility] Mean Corpuscular Hemoglobin 27.8 27.0 - 33.0 pg [facility] Mean Corpuscular HGB Conc 33.4 31.0 - 36.0 g/dl [facility] Red Cell Distribution Width 13.0 11.0 - 16.0 % [facility] Platelet Count 198 160 - 400 X10*3/uL [facility] Mean Platelet Volume 11.7 9.4 - 12.4 fL [facility] Neutrophils Percent Auto 63.4 45 - 73 % [facility] Imm Gran Pct Auto 0.2 0.0 - 0.4 % [facility] Lymphocytes Percent Auto 28.9 20 - 40 % [facility] Monocytes Percent Auto 5.8 2 - 11 % [facility] Eosinophils Percent Auto 1.5 0 - 4 % [facility] Basophils Percent Auto 0.2 0 - 2 % [facility] NRBC Pct Auto 0.0 0.0 - 0.2 /100WBC [facility] Neutrophils Absolute Auto 5.4 2.0 - 8.3 x10*3/uL [facility] Imm Gran Abs Auto 0.02 0.00 - 0.03 X10*3/uL [facility] Lymphocytes Absolute Auto 2.5 1.2 - 4.9 X10*3/uL [facility] Monocytes Absolute Auto 0.5 0.1 - 1.2 X10*3/uL [facility] Eosinophils Absolute Auto 0.1 0.0 - 0.4 X10*3/uL [facility] Basophils Absolute Auto 0.0 0.0 - 0.2 X10*3/uL [facility] NRBC Abs Auto 0.000 0.0 - 0.012 X10*3/uL [facility] 12/30/2024 2:38 PM EDT 12/30/2024 2:45 PM EDT us Generic External Data Provider LAB BLOOD ORDERAB LES Final Result Performing Organization Address [facility]/ZIP Co de Phone Number [facility] [address] [place] [phone] * B Type Natriuretic Peptide (BNP) (12/30/2024 2:38 PM EDT) B Type Natriuretic Peptide 11 <100 pg/mL [facility] 12/30/2024 2:38 PM EDT 12/30/2024 2:45 PM EDT us Generic External Data Provider LAB BLOOD ORDERAB LES Final Result Performing Organization Address [facility] Co de Phone Number [facility] [address] [place] [phone] [phone] * Magnesium (12/30/2024 2:38 PM EDT) Magnesium 2.1 1.6 - 2.6 mg/dL [facility] 12/30/2024 2:38 PM EDT 12/30/2024 2:45 PM EDT us Generic External Data Provider LAB BLOOD ORDERAB LES Final Result [facility] [address] [place] [address] [phone] * (ABNORMAL) Comprehensive Metabolic Panel (12/30/2024 2:38 PM EDT) Sodium 141 135 - 145 mmol/L [facility] Potassium 3.8 3.3 - 5.1 mmol/L [facility] Chloride 108 96 - 108 mmol/L [facility] Carbon Dioxide 25 22 - 29 mmol/L [facility] Anion Gap 12 12 - 20 [facility] Urea Nitrogen (BUN) 14 9 - 16 mg/dL [facility] Creatinine, Serum 0.73 0.5 - 1.4 mg/dL [facility] Creatinine Clr Calc Pharmacy 199.1 [facility] Comment:eGFR (calculated fro m the MDRD study equation) and eCrCl(calculated from the Cockcroft-Gault equation) are based ondifferent parameters and may not yield comparable results.If eCrCl result is absurd, please check patient'sheight/weight. Estimated Glomerular Filt Rate >60 [facility] Comment:Chronic Kidney Disea se: Estimated GFR < 60 mL/min/1.14a2Zavvix Kidney Disease: Estimated GFR < 15 mL/min/1.73m2 Glucose 179(H) 60 - 115 mg/dL [facility] Calcium 9.5 8.4 - 10.2 mg/dL [facility] Bilirubin, Total 0.3 0.0 - 1.0 mg/dL [facility] Aspartate Amino Transferase 34 5 - 37 U/L [facility] Alanine Aminotransferase 51(H) 0 - 40 U/L [facility] Total Protein 7.4 6.5 - 8.0 g/dL [facility] Albumin Level 4.1 3.5 - 5.0 g/dL [facility] Alkaline Phosphatase 69 39 - 117 U/L [facility] 12/30/2024 2:38 PM EDT 12/30/2024 2:45 PM EDT us Generic External Data Provider LAB BLOOD ORDERAB LES Final Result Performing Organization Address City/State/[facility] Co de Phone Number [facility] [address] [place] [phone] * XR Shoulder 2+ Views Right (11/30/2024 10:01 AM EDT) Anatomical Region Laterality Modality Upper Extremities, Shoulder Right Radi ographic Imaging 11/30/2024 10:0 1 AM EDT Narrative 11/30/2024 11:10 AM EDT [address] [address] XRay Report Signed Patient: Triston Quinn MR#: M [id number] : 1980 Acct:[id number] Age/Sex: 44 / M ADM Date: 11/30/24 Loc: HO.ED Attending Dr: Ordering Physician: Generic ED Physician Date of Service: 11/30/24 Procedure(s): XR shoulder RT min 2V Accession Number(s): [id number] cc: Generic ED Physician; [facility] EXAMINATION: XR SHOULDER, RIGHT CLINICAL INFORMATION: [...] by Giles Pfeiffer MD in OV> 11/30/24 110 DD/ 1001 TD/TT: 11/30/24 110 Motor Polarizer: Procedure Note Watson, Image - 11/30/2024 [place] [address] XRay Report Signed Patient: Triston Quinn EMR#: M [id number] : 1980Acct:[id number] Age/Sex: 44 / MADM Date: 11/30/24 Loc: HO.ED Attending Dr: Ordering Physician: Generic ED Physician Date of Service: 11/30/24 Procedure(s): XR shoulder RT min 2V Accession Number(s): [id number] cc: Generic ED Physician; [facility] EXAMINATION: XR SHOULDER, RIGHT CLINICAL INFORMATION: right shoulder pain COMPARISON: September 02, 2018. TECHNIQUE: AP external rotation, Grashey, scapular Y, and axillary views of the right shoulder. FINDINGS: No acute cortical disruption or malalignment. No lytic or blastic lesions. No gross sclerosis along the articular surfaces. XR/XR shoulder RT min 2V IMPRESSION: Normal x-ray right shoulder. Electronically signed by: Giles yWatt MD 11/30/2024 11:07 AM EDT Dictated By: Giles Sotelo MD Signed By: <Electronically signed by Giles Pfeiffer MDin OV> 11/30/24 1107 DD/ 1001 TD/TT: 11/30/24 110 Motor Polarizer: us [facility] External Provider IMG XR PROCEDURES Final Result * Hemoglobin A1c (12/17/2023 11:40 AM EDT) Hemoglobin A1c 5.7 <6.0 % [facility] Comment:Hemoglobin A1C Refer ence Range Adults: 4.8 - 6.0 % Non diabetic: < 6.0 % Goal: < 7.0 %Additional Action Suggested: > 8.0 %Note: Hemoglobin A1c results are invalid for patients with abnormal amounts of HbF. Blood transfusions may impact the HbA1c concentration in the patient sample. Estimated Average Glucose 117 mg/dL [facility] Comment:eAG = Estimated ave rage glucose which is %A1C expressed asaverage glucose, using the formula of the [id number] Glucose study (ADAG), Diabetes Care, Vol.31,#8,2007 Blood Venous blood specimen / Unknown 12/17/2023 11:40 AM EDT 12/17/2023 1:09 PM EDT us Larissa Viveros NP LAB BLOOD ORDERABLES Final Resul t [facility] [address] [place] [address] [phone] * (ABNORMAL) Lipid Panel, Standard (12/17/2023 11:40 AM EDT) Triglycerides 74 <150 mg/dL [facility] Comment:Desirable Triglyceri de: less than 150 mg/dLBorderline High Triglyceride 150-199 mg/dLHigh Triglyceride: 200-499 mg/dLVery High Triglyceride: greater than or equal to 5OO mg/dL Cholesterol 290(H) <200 mg/dL [facility] Comment:Desirable Cholestero l: less than 200 mg/dLBorderline High Cholesterol: 200-239 mg/dLHigh Cholesterol: greater than 239 mg/dL LDL Cholesterol Calculated 235(H) <100 mg/dL [facility] Comment:Desirable LDL: less than 100 mg/dLNear Optimal/Above Optimal LDL: 110- 129 mg/dLBorderline High LDL: 130-159 mg/dLHigh LDL: 160-189 mg/dLVery High LDL: greater than or equal to 190 mg/dL HDL Cholesterol 41 >40 mg/dL [facility] Comment:Desirable HDL: great er than 40 mg/dL Note: This HDL assay may give artificially low results in patients with liver disease. Blood Venous blood specimen / Unknown 12/17/2023 11:40 AM EDT 12/17/2023 1:09 PM EDT us Larissa Viveros MANAGING PRINCIPAL LAB BLOOD ORDERABLES Final Resul t Performing Organization Address City/[facility]/ZIP Co de Phone Number [facility] [address] [place] [phone] * HEPATITIS C AB W/REFL TO HCV RNA, QN, PCR (11/06/2021 2:02 PM EDT) HEPATITIS C ANTIBODY NON-REACT [facility] NON-REACT [facility] INDEX 0.03 <1.00 [facility] Comment: HCV antibody was non-reactive. There is no laboratory evidence of HCV infection. In most cases, no further action is required. However, if recent HCV exposure is suspected, a test for HCV RNA (test code 77354) is suggested. For additional information please refer to http://FIGMD.Dibsie/faq/DMN83k4 (This link is being provided for informational/ educational purposes only.) 11/06/2021 2:02 PM EDT us Ananya Henry MARKETING SEGMENT MANAGER HISTORICAL/NON ORDERABLE LABS Final Result Performing Organization Address City/[facility] Co de Phone Number [facility] [address] [place] [id number] from Last 3 Months or Most Recently Relevant to Health Maintenance Insurance [facility] STAND ADULT DENTAL [facility] MEDICAID DDS ADULT Care Teams Coagulating Operator Relationship Specialty Start Date End Date Larissa Viveros NP [address] [place] [address] PCP - General Family Medicine 11/12/23
== END 2025-02-14 16:47 | disposition home or self-care (01) ==
LOC: HO.HHCLNP 16:46
PROVIDERS: Visit Provider Nurse Practitioner
DX: R06.02 Shortness of breath (principal); R06.2 Wheezing; R05.1 Acute cough
CPT/HCPCS: 87633

== ENCOUNTER 2025-02-15 19:30 | Emergency (ER) | payer MEDICAID, SELFPAY ==
--- NOTE | ~2025-02-15 | XR_ITS ---
CLINICAL HISTORY: Coughing. Pneumonia? 2 view chest x-ray Comparison: None provided Findings: No consolidation or effusion. Normal size heart. No acute fracture. IMPRESSION: 1. No acute findings. This document has been electronically signed by: Shira Gamez MD on 02/15/2025 20:37:58
[2025-02-15 19:45] VITALS: BP 149/73; PULSE 76; RESP 20; TEMP 37.1; O2SAT 98; BMI 52.6
--- NOTE | 2025-02-15 19:51 | ED.GENADULT ---
HPI - General Adult General Chief complaint: Dyspnea Stated complaint: SOB, wheezing Time Seen by Provider: 02/15/25 21:04 Source: patient Limitations: no limitations History of Present Illness ED Provider: Jo Ann Shell PA-C HPI narrative: 44-year-old male with a history of morbid obesity, hypertension, hyperlipidemia, known coronary artery disease, prior NSTEMI, status post PCI who presents with cough and cold symptoms x5 days. Patient was seen at urgent care he was sent with the nasal spray, his symptoms have persisted. Associated nasal congestion, dry repetitive cough with wheezing at times. Denies fever. The patient does admit to daily marijuana use. He does not use tobacco. Related Data Home Medications ?Medication ?Instructions ?Recorded ?Confirmed aspirin 81 mg tablet,delayed 81 mg PO DAILY 01/14/25 01/14/25 release (Adult Low Dose Aspirin) atorvastatin 80 mg tablet (Lipitor) 80 mg PO BEDTIME 01/14/25 01/14/25 losartan 25 mg tablet 25 mg PO DAILY 01/14/25 01/14/25 metoprolol succinate 25 mg 25 mg PO DAILY 01/14/25 01/14/25 tablet,extended release 24 hr ticagrelor 90 mg tablet 90 mg PO BID 01/14/25 01/14/25 Previous Rx's ?Medication ?Instructions ?Recorded nitroglycerin 0.4 mg sublingual 0.4 mg sublingual Q5MX3 PRN Chest 12/31/24 tablet (Nitrostat) Pain #30 tabs azithromycin 250 mg tablet 250 mg PO DAILY 4 days #4 tabs 02/15/25 prednisone 20 mg tablet 40 mg (2 x 20 mg) PO DAILY #8 tabs 02/15/25 Allergies Allergy/AdvReac Type Severity Reaction Status Date / Time No Known Allergies (No Known Allergy Verified 02/15/25 19:50 Allergies*) Review of Systems Review of Systems: Yes all other systems are reviewed and are negative Constitutional: Constitutional: Denies fatigue and Denies fever(s) ENT: Reports nasal congestion Cardiovascular: Cardiovascular: Denies chest pain and Reports dyspnea Respiratory: Respiratory: Denies chest congestion, Reports cough, Reports dyspnea and Reports wheezing Endocrine: Endocrine: Denies fatigue Allergic/Immunologic: Allergic/Immunologic: Reports wheezing PMFSH Past Medical History Attestation statement: The following information was validated with the patient. Medical History (Updated 02/16/25 @ 00:01 by Background Daemon) Hypertension Obstructive sleep apnea Anxiety Depression Hypercholesteremia GERD (gastroesophageal reflux disease) Surgical History (Updated 01/14/25 @ 11:38 by BETINA Nevarez) History of cardiac cath H/O colonoscopy H/O circumcision Family History Family History Mother Arterial stent thrombosis Maternal Grandmother Diabetes Dementia Father Lung cancer Social History Social History Household Members: Significant Other Housing: Apartment Are you a primary long term care pharmacist to a significant other at home: No Do you presently have visiting nurse or other home services: No Alcohol intake: current Alcohol intake frequency: a few times a month Patient Tobacco Use Status: Current someday Tobacco user Tobacco use type: Cigarette Smoked in Last 30 Days: Yes e-Cigarette/Vaping Use: Currently Using Use of substances other than those prescribed or required for medical reasons: Yes Substance Use Type: Marijuana Advance Directives: No Advance Directives Information Provided: No Do you have a plan to hurt others: No Plan service: No Current occupational status: disabled Physical Exam ED Vital Signs: Vital Signs - 24 hr 02/15/25 19:45 02/15/25 21:02 02/15/25 22:09 Temperature 98.7 F Pulse Rate 76 74 77 Respiratory Rate 20 24 H 18 Blood Pressure 149/73 H Pulse Oximetry 98 Oxygen Delivery Method Room Air BMI result Body Mass Index 52.6 Const Other: Alert Orientation/consciousness: patient oriented x3 Resp Other: Expiratory wheezes noted posterior bonilla Effort & Inspection: normal respiratory effort Cardio Other: Normal peripheral perfusion Skin Other: Warm dry no rash Neuro General: patient oriented x3, gait normal, no focal motor deficits and CN's II-XI intact bilaterally Psych Other: Cooperative Course Course Course Narrative: RME: 44 yold male presents to ED for coughing and wheezing since February 09. Patient states she was seen at urgent care given only albuterol inhaler which is not helping. On exam positive for left upper lobe wheezing. X-ray swabs ED brought ordered Medications Administered Discontinued Medications Generic Name Dose Route Start Last Admin Trade Name Freq PRN Reason Stop Dose Admin Azithromycin 500 mg 02/15/25 21:10 02/15/25 21:16 Azithromycin 500 Mg Tablet PO 02/15/25 21:11 500 mg ONCE ONE Administration Albuterol Sulfate 5 mg/ 0 mg 02/15/25 21:01 02/15/25 21:18 Albuterol/Ipratropium 3 ml INHALE 02/15/25 21:02 7.5 each ONCE ONE Administration Albuterol Sulfate 5 mg/ 0 mg 02/15/25 22:08 02/15/25 22:09 Albuterol/Ipratropium 3 ml INHALE 02/15/25 22:09 7.5 each ONCE ONE Administration Prednisone 40 mg 02/15/25 21:06 02/15/25 21:13 Prednisone 20 Mg Tablet PO 02/15/25 21:07 40 mg ONCE ONE Administration Medical Decision Making Medical Decision Making [facility] Narrative: 44-year-old male with a history of morbid obesity, hypertension, hyperlipidemia, known coronary artery disease, prior NSTEMI, status post PCI who presents with cough and cold symptoms x5 days. Patient was seen at urgent care he was sent with the nasal spray, his symptoms have persisted. Associated nasal congestion, dry repetitive cough with wheezing at times. Denies fever. The patient does admit to daily marijuana use. He does not use tobacco. Problem: Marijuana use, known coronary artery disease History: Per patient I have considered the following differential diagnoses: Asthma/COPD exacerbation, bronchitis, pneumonia, viral syndrome Plan: Viral panel and chest x-ray ordered from triage, everything is negative. We will treat the patient for bronchitis giving an updraft, steroid and adding on a Z-Greyson secondary to his smoking. He has an inhaler at home. I have independently reviewed the following tests: Labs: Viral panel negative, strep screen neg Chest x-ray Findings: No consolidation or effusion. Normal size heart. No acute fracture. IMPRESSION: 1. No acute findings. Differential Diagnosis Differential Diagnoses: The differential diagnosis associated with the presentation includes See medical decision-making Admission/Observation Consideration of admission/observation: Escalation of care including admission/observation considered Not applicable Lab Data [facility] Lab Attestation statement: I reviewed the patient's lab results. Labs: Lab Results 02/15/25 Range/Units 20:44 COVID-19 (KATIE) Negative (Negative) COVID-19 Clin Com See Note Influenza Type A (JAYDON) Negative (Negative) Influenza Type B (JAYDON) Negative (Negative) Influenza A & B Note See Note S. pyogenes GrpA JAYDON Negative (Negative) Radiology Impression Discussion of test interpretation with radiology: I have reviewed the radiologist's reading. Discharge Plan Discharge Clinical Impression: Bronchitis Patient Disposition: Home, Self-Care Instructions: Acute Bronchitis (ED) Additional Instructions: You are being treated for bronchitis. See home care instructions. Use your inhaler as needed, take the steroid as directed, take the azithromycin as directed. The chest x-ray was negative for pneumonia, you were tested for influenza, COVID and strep throat, your labs were normal. Follow up with your primary care provider as needed. Prescriptions: New azithromycin 250 mg tablet 250 mg PO DAILY 4 Days Qty: 4 0RF Rx Instructions: start on day 2 of therapy prednisone 20 mg tablet 40 mg PO DAILY Qty: 8 0RF No Action nitroglycerin [Nitrostat] 0.4 mg Tablet, Sublingual 0.4 mg sublingual Q5MX3 PRN (Reason: Chest Pain) Qty: 30 0RF atorvastatin [Lipitor] 80 mg tablet 80 mg PO BEDTIME aspirin [Adult Low Dose Aspirin] 81 mg tablet,delayed release (DR/EC) 81 mg PO DAILY losartan 25 mg tablet 25 mg PO DAILY metoprolol succinate 25 mg tablet extended release 24 hr 25 mg PO DAILY ticagrelor 90 mg tablet 90 mg PO BID Interventions: ED Discharge Assessment Last Done: 02/15/25 23:26 Discharge Date/Time: 02/15/25 23:27 Print Language: Estonian
[2025-02-15 21:02] VITALS: PULSE 74; RESP 24; O2SAT 99
[2025-02-15 21:14] LABS: IDNOW Serial# 6674DD1D; Strep A Nucleic Acid Negative (Negative)
[2025-02-15] MEDS: Albuterol Sulfate 5 MG, Albuterol/Iprat 2.5/0.5MG 3 ML 3 ML INHALE ×2 (21:18→22:09)
[2025-02-15 21:21] LABS: IDNOW Serial# 16C4AD1C; Influenza B2 Negative (Negative)
[2025-02-15 21:22] LABS: COVID-19 Test Negative (Negative); IDNOW Serial# 152EDE1D
--- NOTE | 2025-02-15 21:46 | PC.NURSE ---
Respiratory contacted for additional breathing tx per PA request. Awaiting arrival. Pt resting in recliner.
[2025-02-15 22:09] VITALS: PULSE 77; RESP 18; O2SAT 99
[2025-02-15 23:26] VITALS: BP 125/57; PULSE 98; RESP 20; TEMP 36.6; O2SAT 93
== END 2025-02-15 23:27 | disposition home or self-care (01) ==
PROVIDERS: Physician Assistant; Emergency Provider Emergency Medicine
DX: J40 Bronchitis, not specified as acute or chronic (principal); I10 Essential (primary) hypertension; I25.10 Atherosclerotic heart disease of native coronary artery without angina pectoris; E66.01 Morbid (severe) obesity due to excess calories; I25.2 Old myocardial infarction
CPT/HCPCS: 71046; 87502; 87635; 87651; 94640; 99284

== ENCOUNTER → 2025-02-15 19:50 | Outpatient (BNV) | payer MEDICAID, SELFPAY | PROVIDERS: Visit Provider Student in an Organized Health Care Education/Training Program | DX: R05.9 Cough, unspecified (principal) | CPT/HCPCS: 71046 ==

== ENCOUNTER 2025-03-09 13:17 | Emergency (ER) | payer MEDICAID, SELFPAY ==
--- NOTE | ~2025-03-09 | CT_ITS ---
CLINICAL HISTORY: left sided abdominal pain and rectal bleeding CT abdomen and pelvis with contrast Comparison: CT/SR - CT ABDOMEN PELVIS WITH IV CONTRAST - 11/24/23 19:38 EDT Findings: Lower thorax: Clear. Liver: No focal lesions. No biliary ductal dilatation. Patent portal vein. Gallbladder: Noninflamed gallbladder. Spleen: Normal Pancreas: Hypodensity in the pancreatic uncinate process (series 3, image 38). Adrenal glands: No nodules. Kidneys: No hydronephrosis, solid mass, or stones. Pelvic organs: Normal Peritoneum and Gastrointestinal: No bowel obstruction, pneumoperitoneum, or ascites. Noninflamed appendix. Lymph nodes: No lymphadenopathy. Vessels: Atherosclerosis. Bones and soft tissues: Multilevel degenerative changes. IMPRESSION: No acute CT findings of the abdomen or pelvis. Hypodensity in the pancreatic uncinate process is unchanged compared to November 2023. Differential diagnosis includes uneven lipomatosis or intraductal papillary mucinous neoplasm. Recommend nonurgent MRCP/pancreas MRI for better characterization. This document has been electronically signed by: Hattie Evans MD on 03/09/2025 19:56:06
[2025-03-09 13:34] VITALS: BP 134/79; PULSE 68; RESP 18; TEMP 36.5; O2SAT 97; BMI 54.1
--- NOTE | 2025-03-09 13:35 | ED_ITS ---
HPI - General Adult General Chief complaint: GI Bleed Stated complaint: bleeding when trying to go to bathroom Time Seen by Provider: 03/09/25 16:06 Source: patient, RN notes reviewed and old records reviewed Mode of arrival: ambulatory Limitations: no limitations History of Present Illness ED Provider: Milo HPI narrative: 44-year-old male past medical history significant for coronary artery disease status post cardiac catheterization, hypertension, obesity presents for evaluation of abdominal pain and bloody stool. Patient reports that he has had on and off bright red blood per rectum for a long time. He reports over last 3 weeks it has been substantially worse pain He reports foul-smelling bright red blood every time he has a bowel movement. He reports that sometimes he just has blood when he wipes even without having bowel movements. He complains of left-sided abdominal pain He reports a history of hemorrhoids. He has tried a hemorrhoid cream without any improvement. He reports that he had a cardiac catheterization about a month ago He was on aspirin and was started on Brilinta at that time pain He reports that this seemed to make his symptoms worse so he stopped taking the Brilinta He does complain of some mild rectal pain Denies any fevers or chills His last colonoscopy was about 3 years ago and he had a polyp removed Related Data Home Medications ?Medication ?Instructions ?Recorded ?Confirmed aspirin 81 mg tablet,delayed 81 mg PO DAILY 01/14/25 0 01/14/25 release (Adult Low Dose Aspirin) atorvastatin 80 mg tablet (Lipitor) 80 mg PO BEDTIME 0 01/14/25 01/14/25 losartan 25 mg tablet 25 mg PO DAILY 01/14/2510/03 metoprolol succinate 25 mg 25 mg PO DAILY 01/14/2510/03 tablet,extended release 24 hr ticagrelor 90 mg tablet 90 mg PO BID 01/14/25 Previous Rx's ?Medication ?Instructions ?Recorded nitroglycerin 0.4 mg sublingual 0.4 mg sublingual Q5MX 3 PRN Chest 12/31/24 tablet (Nitrostat) Pain #30 tabs azithromycin 250 mg tablet 250 mg PO DAILY 4 days #4 t abs 02/15/25 prednisone 20 mg tablet 40 mg (2 x 20 mg) PO DAILY # 8 tabs 02/15/25 hydrocortisone acetate 25 mg 25 mg AR BID #12 ea 03/09 rectal suppository (Anucort-HC) Allergies Allergy/AdvReac Type Severity Reaction Status Date / Time No Known Allergies (No Known Allergy Verified 03/09/25 13:38 Allergies*) Review of Systems 2 Constitutional: Constitutional: Denies body ache(s), Denies chills, Denies fever(s) and Denies headache(s) Eyes: Eyes: Denies blurry vision ENT: Denies vertigo, Denies dizziness and Denies headache(s) Cardiovascular: Cardiovascular: Denies chest pain and Denies dyspnea on exertion Respiratory: Respiratory: Denies cough and Denies dyspnea on exertion Gastrointestinal: Gastrointestinal: Reports abdominal pain, Denies melena, Reports hematochezia, Reports loose stools, Denies nausea and Denies vomiting Musculoskeletal: Musculoskeletal: Denies back pain Neurologic: Denies vertigo, Denies dizziness and Denies headache(s) [facility] Past Medical History Medical History (Updated 03/09/25 @ 17:16 by Ant Pedraza) Hypertension Obstructive sleep apnea Anxiety Depression Hypercholesteremia GERD (gastroesophageal reflux disease) Surgical History (Updated 01/14/25 @ 11:38 by FLORENCIA NevarezC) History of cardiac cath H/O colonoscopy H/O circumcision Family History Family History Mother Arterial stent thrombosis Maternal Grandmother Diabetes Dementia Father Lung cancer Social History Social History Household Members: Significant Other Housing: Apartment Are you a primary clinical care manager to a significant other at home: No Do you presently have visiting nurse or other home services: No Alcohol intake: current Alcohol intake frequency: a few times a month Patient Tobacco Use Status: Current someday Tobacco user Tobacco use type: Cigarette Smoked in Last 30 Days: No e-Cigarette/Vaping Use: Currently Using Use of substances other than those prescribed or required for medical reasons: No Substance Use Type: Marijuana Advance Directives: No Advance Directives Information Provided: No service: No Current occupational status: disabled Physical Exam ED Vital Signs: Vital Signs - 24 hr 03/09/25 13:34 03/09/25 18:39 Temperature 97.7 F 98.7 F Pulse Rate 68 87 Respiratory Rate 18 15 Blood Pressure 134/79 136/64 Pulse Oximetry 97 98 Oxygen Delivery Method Room Air Room Air BMI result Body Mass Index 54.1 Const General: healthy appearing, comfortable, no acute distress, alert and awake Nutritional Appearance: well nourished Orientation/consciousness: patient oriented x3 HENMT Head: Yes normocephalic and Yes atraumatic Eyes Eyelids: Yes eyelids normal Conjunctivae: conjunctivae normal Sclerae: sclerae normal Corneas: corneas normal Pupils: Equal, round and reactive pupils present EOM: EOMs intact bilaterally Neck Neck: Yes full ROM Resp Effort & Inspection: normal respiratory effort, able to speak in complete sentences and not labored Cardio Rate: regular rate Rhythm: regular rhythm GI Inspection: No distended Palpation (GI): Soft to palpation, not firm, Tenderness to palpation present (GI) in the LLQ and in the LUQ, Guarding due to palpation present (GI) in the LLQ and in the LUQ and not rigid Rectal Exam - Male: Yes visual inspection normal, Yes normal sphincter tone and No Abnormal stool present Skin General skin exam: elasticity normal Neuro General: patient oriented x3 Cranial nerves: Yes Equal, round and reactive pupils present and Yes Bilaterally intact EOM present Cognition (Neuro): normal cognition Extrem Other: Moving all extremities well without any obvious deformities Course Course Course Narrative: Rapid medical screening exam was performed. Patient stable at time of evaluation. 44 yo male history of hemorrhoids, CAD s/p stent. Currently having bright red rectal bleeding for 3 weeks. LLQ pain. Increased rectal bleeding. Not on blood thinners. Symptoms of rectal tenesmus. Veronika Alves, DO 03/09/25 8402 Reevaluation(s) Reevaluation #1: Discussed patient's workup with him, we would not see any findings to explain his rectal bleeding such as diverticulitis or colitis. I did mention the stable pancreatic lesion and he will follow up with GI for further evaluation as an outpatient. We will discharge the patient with Anusol suppositories and GI referral Time: 20:35 Medications Administered Discontinued Medications Generic Name Dose Route Start Last Admin Trade Name Freq PRN Reason Stop Dose Admin Iohexol 100 ml 03/09/25 18:00 03/09/25 18:00 Iohexol 350 Mg/Ml 100 Ml Infus..Btl IV 03/09/25 18:01 85 ml ONCE ONE Administration Medical Decision Making Medical Decision Making [facility] Narrative: 44-year-old male with past medical history as above presents for evaluation of bright red blood per rectum. He also complains of left-sided abdominal pain. His seemed tender worsening over last 3 weeks. Denies any known history of colitis or diverticulitis. On exam he has tenderness with guarding to the left lower mid abdomen. There was no abdominal distention. He has no notable external hemorrhoids on exam. I do not feel any masses dear instead a rectal exam. His stool guaiac was sent. The patient has a very mild anemia with a hemoglobin 13.2 and a hematocrit of 41.7. His baseline seems to be around 13.5- 14, so there was not any significant change. The patient's platelet count is within normal limits at 201,000 His vital signs are stable, he has not had any significant anemia. Given his abdominal tenderness with guarding we will get a CT scan of the pelvis to evaluate for acute diverticulitis. He has no leukocytosis in his symptoms started to experience so I do feel this is somewhat less likely. The patient will likely need a new colonoscopy Differential Diagnosis Differential Diagnoses: The differential diagnosis associated with the presentation includes Rectal bleeding Internal hemorrhoids External hemorrhoids Diverticulitis Colitis Colon cancer Admission/Observation Consideration of admission/observation: Escalation of care including admission/observation considered Patient has rectal bleeding but no active bleeding on exam, in his hemodynamically stable, likely will not require admission Lab Data [facility] Lab Attestation statement: I reviewed the patient's lab results. As above 03/09/25 14:41 03/09/25 14:41 Labs: Lab Results 03/09/25 03/09/25 Range/Units 14:41 17:16 WBC 9.6 (4.8-10.8) X10*3/uL RBC 4.84 (4.60-5.80) X10*6/uL Hgb 13.2 L (14.0-18.0) g/dl Hct 41.7 L (42.0-52.0) % MCV 86.2 (80.0-98.0) fL MCH 27.3 (27.0-33.0) pg MCHC 31.7 (31.0-36.0) g/dl RDW 13.5 (11.0-16.0) % Plt Count 201 (160-400) X10*3/uL MPV 11.4 (9.4-12.4) fL Immature Gran % (Auto) 0.3 (0.0-0.4) % Neut % (Auto) 60.2 (45-73) % Lymph % (Auto) 28.4 (20-40) % [place] % (Auto) 8.7 (2-11) % Eos % (Auto) 2.1 (0-4) % Baso % (Auto) 0.3 (0-2) % Lymph # (Auto) 2.7 (1.2-4.9) X10*3/uL [place] # (Auto) 0.8 (0.1-1.2) X10*3/uL Eos # (Auto) 0.2 (0.0-0.4) X10*3/uL Baso # (Auto) 0.0 (0.0-0.2) X10*3/uL Abs Immat Gran (auto) 0.03 (0.00-0.03) X10*3/uL Absolute Neuts (auto) 5.8 (2.0-8.3) x10*3/uL Absolute Nucleated RBC 0.000 (0.0-0.012) X10*3/uL Nucleated RBC % (auto) 0.0 (0.0-0.2) /100WBC Sodium 141 (135-145) mmol/L Potassium 4.0 (3.3-5.1) mmol/L Chloride 108 (96-108) mmol/L Carbon Dioxide 29 (22-29) mmol/L Anion Gap 8 L (12-20) BUN 11 (9-16) mg/dL Creatinine 0.68 (0.5-1.4) mg/dL Estim Creat Clear Calc 217.9 Estimated GFR > 60 Random Glucose 88 (60-115) mg/dL Calcium 8.8 (8.4-10.2) mg/dL Total Bilirubin 0.3 (0.0-1.0) mg/dL AST 28 (5-37) U/L ALT 44 H (0-40) U/L Alkaline Phosphatase 65 (39-117) U/L Total Protein 6.9 (6.5-8.0) g/dL Albumin 3.7 (3.5-5.0) g/dL Lipase 17 (8-78) U/L Stool Occult Blood NEGATIVE (NEGATIVE) Discharge Plan Discharge Clinical Impression: Bright red rectal bleeding Patient Disposition: Home, Self-Care Instructions: Rectal Bleeding (ED) Additional Instructions: Your CT scan did not show any findings to explain your symptoms today. No large: Masses or evidence of infectious process pain You should still need to follow up with GI as you will likely need a new colonoscopy. Your CT scan did show a hypodensity in the pancreas which can be followed up as an outpatient. This has not changed since her last CAT scan from November of 2023. Return for new or worsening symptoms Prescriptions: New hydrocortisone acetate [Anucort-HC] 25 mg suppository 25 mg AR BID Qty: 12 0RF No Action nitroglycerin [Nitrostat] 0.4 mg Tablet, Sublingual 0.4 mg sublingual Q5MX3 PRN (Reason: Chest Pain) Qty: 30 0RF azithromycin 250 mg tablet 250 mg PO DAILY 4 Days Qty: 4 0RF Rx Instructions: start on day 2 of therapy prednisone 20 mg tablet 40 mg PO DAILY Qty: 8 0RF atorvastatin [Lipitor] 80 mg tablet 80 mg PO BEDTIME aspirin [Adult Low Dose Aspirin] 81 mg tablet,delayed release (DR/EC) 81 mg PO DAILY losartan 25 mg tablet 25 mg PO DAILY metoprolol succinate 25 mg tablet extended release 24 hr 25 mg PO DAILY ticagrelor 90 mg tablet 90 mg PO BID Referrals: [facility] G[facility] Services [Provider Group, Gastroenterology] Referral Note: bright red rectal bleeding, history of colon polyps Print Language: Egyptian
[2025-03-09 14:49] LABS: MANUAL DIFF FLAG NO
[2025-03-09 15:00] LABS: Hematocrit 41.7 % (42.0-52.0); Hemoglobin 13.2 g/dl (14.0-18.0); Imm Gran Abs Auto 0.03 X10*3/uL (0.00-0.03); Imm Gran Pct Auto 0.3 % (0.0-0.4); Lymphocytes Absolute Auto 2.7 X10*3/uL (1.2-4.9); Mean Corpuscular HGB Conc 31.7 g/dl (31.0-36.0); Mean Corpuscular Hemoglobin 27.3 pg (27.0-33.0); Mean Corpuscular Volume 86.2 fL (80.0-98.0); NRBC Abs Auto 0.000 X10*3/uL (0.0-0.012); NRBC Pct Auto 0.0 /100WBC (0.0-0.2); Platelet Count 201 X10*3/uL (160-400); Red Blood Count 4.84 X10*6/uL (4.60-5.80); White Blood Count 9.6 X10*3/uL (4.8-10.8)
[2025-03-09 15:05] LABS: Alanine Aminotransferase 44 U/L (0-40); Albumin Level 3.7 g/dL (3.5-5.0); Alkaline Phosphatase 65 U/L (39-117); Anion Gap 8 (12-20); Aspartate Amino Transferase 28 U/L (5-37); Blood Urea Nitrogen 11 mg/dL (9-16); Calcium 8.8 mg/dL (8.4-10.2); Carbon Dioxide 29 mmol/L (22-29); Chloride 108 mmol/L (96-108); Creatinine Clr Calc Pharmacy 217.9; Estimated Glomerular Filt Rate > 60; Lipase 17 U/L (8-78); Potassium 4.0 mmol/L (3.3-5.1); Sodium 141 mmol/L (135-145); Total Protein 6.9 g/dL (6.5-8.0)
[2025-03-09 17:23] LABS: OBS Int Ctl Valid YES; OBS1 NEGATIVE (NEGATIVE)
[2025-03-09 17:24] LABS: OBS Lot 0224
[2025-03-09] MEDS: iohexoL 350 MG/ML 100 ML INFUS..BTL IV (18:00)
[2025-03-09 18:39] VITALS: BP 136/64; PULSE 87; RESP 15; TEMP 37.1; O2SAT 98
--- OUTSIDE RECORDS SUMMARY | 2025-03-09 20:03 | XMS_ITS | Encounter Summary ---
Author Organization [employer] Address [address] [place] [address] Care Team Providers Care Metallurgical Analyst Name Role Phone Larissa Viveros NP Primary Care Provider [phone] Encounter Details Date Type Department Care Team (Latest Contact Info) Description 03/09/2025 Travel Social History Tobacco Use Types Packs/Day [...] Care Team (Late st Contact Info) Description 03/10/2025 3:00 PM EDT Office Visit [facility] [address] [place] [address] AndersonAnahi butler, OD [address] [place] [address] 03/25/2025 10:00 AM EST Nutrition [facility]NUTRITION [address] [place] [address] Cherry Major, RD [address] [place] [address] documented as of this encounter Visit Diagnoses Not on filedocumented in this encounter Additional Health Concerns Assessment Noted Time PHQ-9 Depression Total Score: 15 025 4:20 PM EDT documented as of this encounter Care Teams Metallurgical Analyst Relationship Specialty Start Date End Date Larissa Viveros NP [address] [place] [address] PCP - General Family Medicine 11/12/23 documented as of this encounter
--- OUTSIDE RECORDS SUMMARY | 2025-03-09 20:03 | XMS_ITS | Clinical Summary ---
Author Organization [employer] Address [address] [facility] [address] [place] [address] Care Team Providers Care Senior Front End Web Developer Name Role Phone Larissa Viveros NP Primary Care Provider [phone] Allergies No known active allergies Medications * This document contains information received from the source organization and may not represent a complete record from that organization. atorvastatin (Lipitor) 80 MG tablet Take 80 mg by mouth in the morning. 2 Active Aspirin Low Dose 81 MG EC tablet Take 1 tablet by mouth Once per day. 5 Active losartan (Cozaar) 25 MG tablet Take 1 tablet by mouth Once per day. 5 Active metoprolol succinate XL (Toprol-XL) 25 MG 24 hr tablet Take 1 tablet by mouth Once per day. 5 Active nitroglycerin (Nitrostat) 0.[address] 1 TABLET UNDER TONGUE EVERY 5 MIN NEEDED FOR CHEST PAIN, MAX OF 3 DOSES/15 MIN CALL 911/SEEK MEDICAL ATTENTION IF PAIN PERSISTS 5 Active docusate sodium (Colace) 100 MG capsule Take 1 capsule (100 mg) by mouth if needed each day for constipation. 90 capsule 2 5 01/15/20 Active famotidine (Pepcid) 20 MG tablet Take 1 tablet (20 mg) by mouth 2 times daily. 60 tablet 3 5 01/15/20 26 Active ticagrelor (Brilinta) 90 MG tablet Take 1 tablet (90 mg) by mouth 2 times daily. 180 tablet 5 Active albuterol 108 (90 Base) MCG/ACT inhalerIndicatio ns:Shortness of breath,Wheezing Inhale 2 puffs every 6 (six) hours if needed for wheezing. 18 g 1 5 02/15/20 Active fluticasone (Flonase) 50 MCG/ACT nasal sprayIndications :Acute cough Administer 1 spray into each nostril 2 times daily. Shake gently. Before first use, prime pump. After use, clean tip and replace cap. 16 g 1 5 02/15/20 Active Tirzepatide-Weig ht Management (Zepbound) 2.5 MG/0.5ML solution auto-injectorInd ications:NSTEMI (non-ST elevated myocardial infarction) ([facility]),Morbid obesity (CMS/HCC) (HCC),Resistant hypertension Inject 0.5 mL (2.5 mg) under the skin 1 (one) time per week for 28 days. 2 mL 02/15/20 Hospital, Clinic, or Other Facility Administered Medication [...] if worsening pain despite interventions Morbid obesity (CMS/HCC) 11/28/2023 Assessment & Plan (02/02/2025 9:44 AM [...] organization. Date Type Department Care Team Description 03/09/2025 Orders Only GENERIC EXTERNAL DATA DEPARTMENT Provider, Generic External Data 03/09/[address] [address] Larissa Viveros NP 03/09/[address] [address] Larissa Viveros NP 03/09/2025 Travel 02/22/2025 Telephone [facility] MEDICINE [address] [place] [address] Larissa Viveros NP letter for fmla 02/17/[address] [address] Larissa Viveros NP Results 02/16/[address] [address] Larissa Viveros NP Call Back Request 02/16/[address] [address] Larissa Viveros NP Nurse Triage 02/15/2025 [address] [facility] [place] [address] Larissa Viveros NP Results 02/14/2025 3:00 PM EDT [facility] [address] [address] Barbra Arellano NP Acute cough (Primary Dx); Shortness of breath; Wheezing; Elevated blood pressure reading in office with diagnosis of hypertension 02/14/2025 Results [facility] [place] [address] Barbra Arellano NP XR Chest 2 Views, Respiratory Viral Panel PCR 02/14/2025 Travel 02/07/2025 Orders Only [address] [address] Larissa Viveros NP NSTEMI (non-ST elevated myocardial infarction) ([facility]/HCC) (Primary Dx); H/O heart artery stent 02/07/[address] [address] Larissa Viveros NP Med Refill 01/31/[address] [address] Larissa Viveros NP Medication Question 01/25/[address] [address] Larissa Viveros NP Call back request 01/20/[address] [address] Larissa Viveros NP October Recall 01/18/[address] [address] Heather Siddiqui RN 01/17/2025 4:00 PM EDT Office Visit [address] [address] Larissa Viveros NP NSTEMI (non-ST elevated myocardial infarction) (CMS/HCC) (Primary Dx); Recurrent major depressive disorder, remission status unspecified (CMS/HCC); Morbid obesity (CMS/HCC); Resistant hypertension; Obstructive sleep apnea syndrome 01/17/2025 Travel 01/14/2025 Orders Only [facility] [address] [place] [address] Larissa Viveros NP Drug-induced constipation (Primary Dx); Gastroesophageal reflux disease, unspecified whether esophagitis present 01/14/[address] [address] Larissa Viveros NP Chart Prep 01/06/2025 Patient Outreach [address] [address] Larissa Viveros NP Transition Of Care (Tcm) (HDF scheduled) 01/06/[address] [address] Larissa Viveros NP Hospital Follow-up 01/06/2025 Patient Outreach [address] [address] Larissa Viveros NP Transition Of Care (Tcm) (HDF unscheduled) 01/05/2025 Patient Outreach [address] [address] Larissa Viveros NP Transition Of Care (Tcm) (HDF unscheduled) 01/03/2025 Patient Outreach [address] [address] Larissa Viveros NP Transition Of Care (Tcm) (HDF unscheduled ) 12/30/2024 Orders Only GENERIC EXTERNAL DATA DEPARTMENT Provider, Generic External Data 12/30/[address] [address] Larissa Viveros NP Nurse Triage from Last 3 Months Immunizations Immunization Administration [...] Description 03/10/2025 3:00 PM EDT Office Visit [facility] OPTOMETRY [address] [place] [address] Anahi Barron, OD [address] [place] [address] 03/25/2025 10:00 AM EST Nutrition [facility] DIABETES/NUTRITION [address] [place] [address] Cherry Major, RD [address] [place] [address] Health Maintenance Due Date Last Done Comments [...] Procedure Name Priority Date/Time Associated Diagnosis Comments CT ABDOMEN PELVIS W CONTRAST Routine 03/09/2025 7:56 PM EDT OBSX1 Routine 03/09/2025 5:16 PM EDT LIPASE Routine 03/09/2025 2:41 PM EDT COMPREHENSIVE METABOLIC PANEL Routine 03/09/2025 2:41 PM EDT CBC WITH AUTO DIFFERENTIAL Routine 03/09/2025 2:41 PM EDT RESPIRATORY VIRAL PANEL PCR Routine 02/14/2025 4:46 [...] 2 VIEWS Routine 12/30/2024 1:54 PM EDT HEMOGLOBIN A1C Routine 12/17/2023 11:40 AM [...] Recently Relevant to Health Maintenance Results * CT Abdomen Pelvis w/ Contrast (03/09/2025 7:56 PM EDT) Anatomical Region Laterality Modality Body, Pelvis, Abdomen Computed T omography 03/09/2025 7:56 PM EDT Narrative 03/09/2025 7:58 PM EDT [place] [address] [address] Scan Report Signed Patient: Triston Quinn MR#: M [id number] : 1980 Acct:[id number] Age/Sex: 44 / M ADM Date: 03/09/25 Loc: .ED Attending Dr: Ordering Physician: Ant Pedraza Date of Service: 03/09/25 Procedure(s): CT abdomen pelvis w IV con Accession Number(s): [id number] cc: [facility]; Ant Pedraza Report Number: [id number]: Total DLP = 1736.00 mGy-cm Reason for Exam: left sided abdominal pain and rectal bleeding CLINICAL HISTORY: left sided abdominal pain and rectal bleeding CT abdomen and pelvis with contrast Comparison: CT/SR - CT ABDOMEN PELVIS WITH IV CONTRAST - 11/24/23 19:38 EDT Findings: Lower thorax: Clear. Liver: No focal lesions. No biliary ductal dilatation. Patent portal vein. Gallbladder: Noninflamed gallbladder. Spleen: Normal Pancreas: Hypodensity in the pancreatic uncinate process (series 3, image 38). Adrenal glands: No nodules. Kidneys: No hydronephrosis, solid mass, or stones. Pelvic organs: Normal Peritoneum and Gastrointestinal: No bowel obstruction, pneumoperitoneum, or ascites. Noninflamed appendix. Lymph nodes: No lymphadenopathy. Vessels: Atherosclerosis. Bones and soft tissues: Multilevel degenerative changes. IMPRESSION: No acute CT findings of the abdomen or pelvis. Hypodensity in the pancreatic uncinate process is unchanged compared to November 2023. Differential diagnosis includes uneven lipomatosis or intraductal papillary mucinous neoplasm. Recommend nonurgent MRCP/pancreas MRI for better characterization. This document has been electronically signed by: Hattie Evans MD on 03/09/2025 19:56:06 Dictated By: Hattie Evans MD Signed By: <Electronically signed by Hattie Evans MD in OV> 03/09/251956 DD/ 55 TD/TT: 03/09/251955 Index Editor: Procedure Note Donotuseinterpreter, Image - 03/09/[address] [place] [address] [address] Scan Report Signed Patient: Triston Quinn EMR#: M [id number] : 1980Acct:[id number] Age/Sex: 44 / MADM Date: 03/09/25 Loc: .ED Attending Dr: Ordering Physician: nAt Pedraza Date of Service: 03/09/25 Procedure(s): CT abdomen pelvis w IV con Accession Number(s): [id number] cc: [facility]; Ant Pedraza Report Number: [id number]: Total DLP = 1736.00 mGy-cm Reason for Exam: left sided abdominal pain and rectal bleeding CLINICAL HISTORY: left sided abdominal pain and rectal bleeding CT abdomen and pelvis with contrast Comparison: CT/SR - CT ABDOMEN PELVIS WITH IV CONTRAST - 11/24/23 19:38 EDT Findings: Lower thorax: Clear. Liver: No focal lesions. No biliary ductal dilatation. Patent portal vein. Gallbladder: Noninflamed gallbladder. Spleen: Normal Pancreas: Hypodensity in the pancreatic uncinate process (series 3, image 38). Adrenal glands: No nodules. Kidneys: No hydronephrosis, solid mass, or stones. Pelvic organs: Normal Peritoneum and Gastrointestinal: No bowel obstruction, pneumoperitoneum, or ascites. Noninflamed appendix. Lymph nodes: No lymphadenopathy. Vessels: Atherosclerosis. Bones and soft tissues: Multilevel degenerative changes. IMPRESSION: No acute CT findings of the abdomen or pelvis. Hypodensity in the pancreatic uncinate process is unchanged compared to November 2023. Differential diagnosis includes uneven lipomatosis or intraductal papillary mucinous neoplasm. Recommend nonurgent MRCP/pancreas MRI for better characterization. This document has been electronically signed by: Hattie Evans MD on 03/09/2025 19:56:06 Dictated By: Hattie Evans MD Signed By: <Electronically signed by Hattie Evans MD in OV> 03/09/251956 DD/ 55 TD/TT: 03/09/251955 Index Editor: [facility] External Provider IMG CT PROCEDURES Final Result * OBSX1 (03/09/2025 5:16 PM EDT) OBS1 NEGATIVE NEGATIVE [facility] 03/09/2025 5:16 PM EDT 03/09/2025 5:19 PM EDT Generic External Data Provider LAB BLOOD ORDERAB LES Final Result [facility] [address] [place] [phone] * (ABNORMAL) CBC auto differential (03/09/2025 2:41 PM EDT) Only the most recent of2 resultswithin the time period is included. White Blood Count 9.6 4.8 - 10.8 X10*3/uL [facility] Red Blood Count 4.84 4.60 - 5.80 X10*6/uL [facility] Hemoglobin 13.2(L) 14.0 - 18.0 g/dl [facility] Hematocrit 41.7(L) 42.0 - 52.0 % [facility] Mean Corpuscular Volume 86.2 80.0 - 98.0 fL [facility] Mean Corpuscular Hemoglobin 27.3 27.0 - 33.0 pg [facility] Mean Corpuscular HGB Conc 31.7 31.0 - 36.0 g/dl [facility] Red Cell Distribution Width 13.5 11.0 - 16.0 % [facility] Platelet Count 201 160 - 400 X10*3/uL [facility] Mean Platelet Volume 11.4 9.4 - 12.4 fL [facility] Neutrophils Percent Auto 60.2 45 - 73 % [facility] Imm Gran Pct Auto 0.3 0.0 - 0.4 % [facility] Lymphocytes Percent Auto 28.4 20 - 40 % [facility] Monocytes Percent Auto 8.7 2 - 11 % [facility] Eosinophils Percent Auto 2.1 0 - 4 % [facility] Basophils Percent Auto 0.3 0 - 2 % [facility] NRBC Pct Auto 0.0 0.0 - 0.2 /100WBC [facility] Neutrophils Absolute Auto 5.8 2.0 - 8.3 x10*3/uL [facility] Imm Gran Abs Auto 0.03 0.00 - 0.03 X10*3/uL [facility] Lymphocytes Absolute Auto 2.7 1.2 - 4.9 X10*3/uL [facility] Monocytes Absolute Auto 0.8 0.1 - 1.2 X10*3/uL [facility] Eosinophils Absolute Auto 0.2 0.0 - 0.4 X10*3/uL [facility] Basophils Absolute Auto 0.0 0.0 - 0.2 X10*3/uL [facility] NRBC Abs Auto 0.000 0.0 - 0.012 X10*3/uL [facility] 03/09/2025 2:41 PM EDT 03/09/2025 2:48 PM EDT us Generic External Data Provider LAB BLOOD ORDERAB LES Final Result Performing Organization Address City/[facility]/ZIP Co de Phone Number [facility] [address] [place] [address] [phone] * Lipase (03/09/2025 2:41 PM EDT) Lipase 17 8 - 78 U/L [facility] 03/09/2025 2:41 PM EDT 03/09/2025 2:48 PM EDT Generic External Data Provider LAB BLOOD ORDERAB LES Final Result Performing Organization Address [facility] Co de Phone Number [facility] [address] [place] [address] [phone] * (ABNORMAL) Comprehensive Metabolic Panel (03/09/2025 2:41 PM EDT) Only the most recent of2 resultswithin the time period is included. Pathologist [facility] Sodium 141 135 - 145 mmol/L [facility] Potassium 4.0 3.3 - 5.1 mmol/L [facility] Chloride 108 96 - 108 mmol/L [facility] Carbon Dioxide 29 22 - 29 mmol/L [facility] Anion Gap 8(L) 12 - 20 [facility] Urea Nitrogen (BUN) 11 9 - 16 mg/dL [facility] Creatinine, Serum 0.68 0.5 - 1.4 mg/dL [facility] Creatinine Clr Calc Pharmacy 217.9 [facility] Comment:eGFR (calculated fro m the MDRD study equation) and eCrCl(calculated from the Cockcroft-Gault equation) are based ondifferent parameters and may not yield comparable results.If eCrCl result is absurd, please check patient'sheight/weight. Estimated Glomerular Filt Rate >60 [facility] Comment:Chronic Kidney Disea se: Estimated GFR < 60 mL/min/1.07m7Srowxg Kidney Disease: Estimated GFR < 15 mL/min/1.73m2 Glucose 88 60 - 115 mg/dL [facility] Calcium 8.8 8.4 - 10.2 mg/dL [facility] Bilirubin, Total 0.3 0.0 - 1.0 mg/dL [facility] Aspartate Amino Transferase 28 5 - 37 U/L [facility] Alanine Aminotransferase 44(H) 0 - 40 U/L [facility] Total Protein 6.9 6.5 - 8.0 g/dL [facility] Albumin Level 3.7 3.5 - 5.0 g/dL [facility] Alkaline Phosphatase 65 39 - 117 U/L [facility] 03/09/2025 2:41 PM EDT 03/09/2025 2:48 PM EDT us Generic External Data Provider LAB BLOOD ORDERAB LES Final Result [facility] [address] [place] [phone] * (ABNORMAL) Respiratory Viral Panel PCR (02/14/2025 4:46 PM EDT) Adenovirus PCR Not Detected Not Detect. [facility] Bordetella pertussis PCR Not Detected Not Detect. [facility] Comment:Interpret results wi th caution. If B. pertussis isspecifically suspected, additional testing using analternate method is recommended. Bordetella parapertussis PCR Not Detected Not Detect. [facility] Chlamydia pneumoniae PCR Not Detected Not Detect. [facility] Coronavirus 229E PCR Not Detected Not Detect. [facility] Coronavirus HKU1 PCR Not Detected Not Detect. [facility] Coronavirus NL63 PCR Not Detected Not Detect. [facility] Coronavirus OC43 PCR Not Detected Not Detect. [facility] SARS-CoV-2 PCR Not Detected Not Detect. [facility] Comment:SARS-CoV-2 not detec tarah by real-time RT-PCR.Note: If clinical suspicion for Sars-CoV-2 is high, continueto maintain precautions and consider repeat testing.Test results should be interpreted in the context ofclinical findings and other laboratory data.Rare polymorphisms exist that could lead to false-negativeor false-positive results. If results do not match theclinical findings, additional testing should be considered.Results reported to JOSE MALLORY.This test has been authorized by the FDA under the EmergencyUse Authorization (EUA) for use by authorized laboratories. Influenza A PCR Not Detected Not Detect. [facility] Influenza A Subtype H1 Not Detected Not Detect. [facility] Influenza A H1-2009 PCR Not Detected Not Detect. [facility] Influenza A Subtype H3 Not Detected Not Detect. [facility] Influenza B PCR Not Detected Not Detect. [facility] Human metapneumovirus PCR Not Detected Not Detect. [facility] Rhino/Enterovirus PCR Detected(A) Not Detect. [facility] Mycoplasma pneumoniae PCR Not Detected Not Detect. [facility] Parainfluenza 1 PCR Not Detected Not Detect. [facility] Parainfluenza 2 PCR Not Detected Not Detect. [facility] Parainfluenza 3 PCR Not Detected Not Detect. [facility] Parainfluenza 4 PCR Not Detected Not Detect. [facility] RSV PCR Not Detected Not Detect. [facility] Resp Panel NA Note See Note H [facility] Comment:All results must be correlated [...] assay is performed by Multiplexed PCR, utilizing [employer] Film Array. Swab 02/14/2025 4:46 PM EDT 02/15/2025 1:22 PM EDT Barbra Arellano NP LAB BLOOD ORDERABLES Final Resu lt [facility] [address] [place] [address] [phone] * XR Chest 2 Views (02/14/2025 4:20 PM EDT) Only the most recent of2 resultswithin the time period is included. Anatomical Region Laterality Modality Chest Radiographic Priya ging 02/14/2025 4:20 PM EDT Narrative 02/14/2025 4:34 PM EDT [address] [address] XRay Report Signed Patient: Triston Quinn MR#: M [id number] : 1980 Acct:[id number] Age/Sex: 44 / M ADM Date: 02/14/25 Loc: HO.HHCX Attending Dr: Barbra Arellano Ordering Physician: Barbra Arellano Date of Service: 02/14/25 Procedure(s): XR chest 2V Accession Number(s): [id number] cc: Barbra Arellano Reason for Exam: shortness [...] 02/14/25 1631 DD/ 1620 TD/TT: 02/14/25 1624 Index Editor: Procedure Note Donotuseinterpreter, Image - 02/14/[address] [address] XRay Report Signed Patient: Triston Quinn EMR#: M [id number] : 1980Acct:[id number] Age/Sex: 44 / MADM Date: 02/14/25 [facility]: Barbra Arellano Ordering Physician: Barbra Arellano Date of Service: 02/14/25 Procedure(s): XR chest 2V Accession Number(s): [id number] cc: Barbra Arellano Reason for Exam: shortness [...] 02/14/25 1631 DD/ 1620 TD/TT: 02/14/25 1624 Index Editor: Barbra Arellano CHEMISTRY TUTOR IMG XR PROCEDURES Final Result * CTA Chest PE Protocal (12/30/2024 8:47 PM EDT) Anatomical Region Laterality Modality Body, Chest Computed Tomogra phy 12/30/2024 8:47 PM EDT Narrative 12/30/2024 8:48 PM EDT [address] [address] [address] Scan Report Signed Patient: Triston Quinn MR#: M [id number] : 1980 Acct:[id number] Age/Sex: 44 / M ADM Date: 12/30/24 Loc: HO.ED Attending Dr: Ordering Physician: Gamaliel Posey DO Date of Service: 12/30/24 Procedure(s): CT angio chest PE protocol Accession Number(s): [id number] cc: [facility]; Gamaliel Posey DO Report Number: [id number]: Total DLP = 637.00 mGy-cm CLINICAL HISTORY: [...] in OV> 12/30/242047 DD/ 46 TD/TT: 12/30/242046 Index Editor: Procedure Note Donotuseinterpreter, Image - 12/30/[address] [place] [address] [address] Scan Report Signed Patient: Triston Quinn [facility]#: M [id number] : 1980Acct:[id number] Age/Sex: 44 / MADM Date: 12/30/24 Loc: .ED Attending Dr: Ordering Physician: Gamaliel Posey DO Date of Service: 12/30/24 Procedure(s): CT angio chest PE protocol Accession Number(s): [id number] cc: [facility]; Gamaliel Posey DO Report Number: [id number]: Total DLP = 637.00 mGy-cm CLINICAL HISTORY: [...] in OV> 12/30/242047 DD/ 46 TD/TT: 12/30/242046 Index Editor: [facility] External Provider IMG CT PROCEDURES Final Result * (ABNORMAL) APTT on Heparin (12/30/2024 8:35 PM EDT) Only the most recent of2 resultswithin the time period is included. PTT on Heparin 30.8(L) 53 - 77.9 SEC [facility] Comment:For information rega rding the monitoring of heparin therapy,please refer to Pharmacy. 12/30/2024 8:35 PM EDT 12/30/2024 8:37 PM EDT Generic External Data Provider LAB BLOOD ORDERAB LES Final Result [facility] [address] [place] [phone] * Prothrombin Time-INR (12/30/2024 8:35 PM EDT) Only the most recent of2 resultswithin the time period is included. Prothrombin Time 11.4 10.9 - 12.4 SEC [facility] INTERNATIONAL NORM RATIO 1.0 0.9 - 1.1 [facility] Comment:INTERNATIONAL NORMAL IZED RATIO (INR) [...] Provider LAB BLOOD ORDERAB LES Final Result [facility] [address] [place] [phone] * (ABNORMAL) CBC (12/30/2024 8:35 PM EDT) White Blood Count 10.0 4.8 - 10.8 X10*3/uL [facility] Red Blood Count 4.84 4.60 - 5.80 X10*6/uL [facility] Hemoglobin 13.4(L) 14.0 - 18.0 g/dl [facility] Hematocrit 40.3(L) 42.0 - 52.0 % [facility] Mean Corpuscular Volume 83.3 80.0 - 98.0 fL [facility] Mean Corpuscular Hemoglobin 27.7 27.0 - 33.0 pg [facility] Mean Corpuscular HGB Conc 33.3 31.0 - 36.0 g/dl [facility] Red Cell Distribution Width 13.1 11.0 - 16.0 % [facility] Platelet Count 195 160 - 400 X10*3/uL [facility] Mean Platelet Volume 11.7 9.4 - 12.4 fL [facility] NRBC Pct Auto 0.0 0.0 - 0.2 /100WBC [facility] NRBC Abs Auto 0.000 0.0 - 0.012 X10*3/uL [facility] 12/30/2024 8:35 PM EDT 12/30/2024 8:37 PM EDT Generic External Data Provider LAB BLOOD ORDERAB LES Final Result Performing Organization Address [facility] Co de Phone Number [facility] [address] [place] [phone] * (ABNORMAL) High Sensitivity Troponin I (12/30/2024 4:33 PM EDT) Only the most recent of2 resultswithin the time period is included. [facility] TROPONIN I HIGH SENSITIVITY 295.1(HH) <3.5 - 35.0 ng/L [facility] Comment:Critical value for t est(s):TROP-IHS Results called to brianna back by:MANISH Person calling: JESSISF Date:[id number]:1703The Luu high sensitivity Troponin- I results should beused in conjunction with other diagnostic information suchas ECG, clinical observations and information, and patientsymptoms to aid in the diagnosis of MT. 12/30/2024 4:33 PM EDT 12/30/2024 4:39 PM EDT Generic External Data Provider LAB BLOOD ORDERAB LES Final Result Performing Organization Address [facility] de Phone Number [facility] [address] [place] [phone] * TSH with Reflex to Free T4 (12/30/2024 2:38 PM EDT) Pathologist [facility] TSH reflex Free T4 0.91 0.32 - 4.0 uIU/mL [facility] 12/30/2024 2:38 PM EDT 12/30/2024 2:45 PM EDT Generic External Data Provider LAB BLOOD ORDERAB LES Final Result Performing Organization Address [facility] Co de Phone Number [facility] [address] [place] [phone] * B Type Natriuretic Peptide (BNP) (12/30/2024 2:38 PM EDT) B Type Natriuretic Peptide 11 <100 pg/mL [facility] 12/30/2024 2:38 PM EDT 12/30/2024 2:45 PM EDT Generic External Data Provider LAB BLOOD ORDERAB LES Final Result Performing Organization Address [facility] Hospital/ZIP Co de Phone Number [facility] [address] [place] [phone] * Magnesium (12/30/2024 2:38 PM EDT) Pathologist [facility] [place] Magnesium 2.1 1.6 - 2.6 mg/dL [facility] 12/30/2024 2:38 PM EDT 12/30/2024 2:45 PM EDT Generic External Data Provider LAB BLOOD ORDERAB LES Final Result Performing Organization Address [facility] de Phone Number [facility] [address] [place] [phone] * Hemoglobin A1c (12/17/2023 11:40 AM EDT) Pathologist [facility] [place] Hemoglobin A1c 5.7 <6.0 % [facility] Comment:Hemoglobin A1C Refer ence Range Adults: 4.8 - 6.0 % Non diabetic: < 6.0 % Goal: < 7.0 %Additional Action Suggested: > 8.0 %Note: Hemoglobin A1c results are invalid for patients with abnormal amounts of HbF. Blood transfusions may impact the HbA1c concentration in the patient sample. Estimated Average Glucose 117 mg/dL [facility] Comment:eAG = Estimated ave rage glucose which is %A1C expressed asaverage glucose, using the formula of the E3C-UwaacipNnkytji Glucose study (ADAG), Diabetes Care, Vol.31,#8,Dec. 2007 Blood Venous blood specimen / Unknown 12/17/2023 11:40 AM EDT 12/17/2023 1:09 PM EDT us Larissa Viveros CHEMISTRY TUTOR LAB BLOOD ORDERABLES Final Resul t Performing Organization Address [facility] Co de Phone Number [facility] [address] [place] [address] [phone] * (ABNORMAL) Lipid Panel, Standard (12/17/2023 11:40 AM EDT) Triglycerides 74 <150 mg/dL [facility] Comment:Desirable Triglyceri de: less than 150 mg/dLBorderline High Triglyceride 150-199 mg/dLHigh Triglyceride: 200-499 mg/dLVery High Triglyceride: greater than or equal to 5OO mg/dL Cholesterol 290(H) <200 mg/dL [facility] Comment:Desirable Cholestero l: less than 200 mg/dLBorderline High Cholesterol: 200-239 mg/dLHigh Cholesterol: greater than 239 mg/dL LDL Cholesterol Calculated 235(H) <100 mg/dL [facility] Comment:Desirable LDL: less than 100 mg/dLNear Optimal/Above Optimal LDL: 110- 129 mg/dLBorderline High LDL: 130-159 mg/dLHigh LDL: 160-189 mg/dLVery High LDL: greater than or equal to 190 mg/dL HDL Cholesterol 41 >40 mg/dL [facility] Comment:Desirable HDL: great er than 40 mg/dL Note: This HDL assay may give artificially low results in patients with liver disease. Blood Venous blood specimen / Unknown 12/17/2023 11:40 AM EDT 12/17/2023 1:09 PM EDT us Larissa Viveros CHEMISTRY TUTOR LAB BLOOD ORDERABLES Final Resul t Performing Organization Address [facility]/ZIP Co de Phone Number [facility] [address] [place] [address] [phone] * HEPATITIS C AB W/REFL TO [...] a test for HCV RNA (test code 28057) is suggested. For additional information please refer to http://education.HaulerDeals/faq/ULS84n0 (This link is being provided for informational/ educational purposes only.) 11/06/2021 2:02 PM EDT us Ananya Carl [employer] HISTORICAL/NON ORDERABLE LABS Final Result [facility] [address] from Last 3 Months or Most Recently Relevant to Health Maintenance Insurance C3 DENTAL-[facility] MEDICAID STAND ADULT D[facility]AL - [facility] AD[facility] * Guarantor: Triston Quinn Account Type Relation to Patient Date of Phone Billing Address Personal/Family Self [address] [id number] Care Teams Senior Front End Web Developer Relationship Specialty Start Date End Date Larissa Viveros NP [address] [place] [address] PCP - General Family Medicine 11/12/23
--- OUTSIDE RECORDS SUMMARY | 2025-03-09 20:03 | XMS_ITS | Encounter Summary ---
Author Organization [employer] Address [address] [facility] 7t [place] [address] Care Team Providers Care Steam Clean Machine Operator Name Role Phone Larissa Viveros NP Primary Care Provider [phone] Reason for Visit * Reason Onset Date Comments Med Refill 02/07/2025 Encounter Details Date Type Department Care Team ([facility] st Contact Info) Description 02/07/2025 Telephone [facility] MEDICINE [address] [place] [address] Larissa Viveros NP [address] [place] [address] Med Refill Social History Tobacco Use Types [...] the past 12 months, has t he [employer], gas, oil or water company threatened to [...] 90 MG tablet To be sent to: [id number] - [place] - [id number] [facility] documented in this encounter Plan of Treatment Upcoming Encounters Date Type Department Care Team (Late st Contact Info) Description 03/10/2025 3:00 PM EDT Office Visit [facility] OPTOMETRY [address] [place] [address] Anahi Barron, OD [address] [place] [address] 03/25/2025 10:00 AM EST Nutrition [facility] DIABETES/NUTRITION [address] [place] [address] [place] [address] documented as of this encounter Visit Diagnoses Not on filedocumented in this encounter Additional Health Concerns Assessment Noted Time PHQ-9 Depression Total Score: 15 01/17/ 025 4:20 PM EDT documented as of this encounter Care Teams Steam Clean Machine Operator Relationship Specialty Start Date End Date Larissa Viveros NP [address] [place] [address] PCP - General Family Medicine 11/12/23 documented as of this encounter
--- OUTSIDE RECORDS SUMMARY | 2025-03-09 20:03 | XMS_ITS | Encounter Summary ---
Author Organization [employer] Address [address] [facility] 7t [place] [address] Care Team Providers Care Sales Hunter Name Role Phone Lilo Barrientos Primary Care Provider Larissa Viveros NP Primary Care Provider [phone] Reason for Visit * Reason Onset Date Comments Nurse Triage 10/27/2023 Encounter Details Date Type Department Care Team (Late st Contact Info) Description 10/27/[address] [facility] MEDICINE [address] [place] [address] Lilo Barrientos FNP [address] [place] [address] Nurse Triage Social History Tobacco Use Types [...] agreed with home care advised. Apt with [facility] REFERRAL CLERK Yuli 10/30/23 @ 1115am. Pt is offered [...] Patient calling to report pulpitis. Patient speaks Italian. Advised triage nurse will call patient back. documented in this encounter Plan of Treatment Upcoming Encounters Date Type Department Care Team (Late st Contact Info) Description 03/10/2025 3:00 PM EDT Office Visit [facility] OPTOMETRY [address] [place] [address] Anahi Barron, OD [address] [place], [place] [phone] 03/25/2025 10:[address] [facility] DIABETES/NUTRITION [address] [place] [address] [place] [address] documented as of this encounter Visit Diagnoses Not on filedocumented in this encounter Care Teams Sales Hunter Relationship Specialty Start Date End Date Lilo Barrientos FNP [address] [place] [address] PCP - General Family Medicine 10/04/22 11/11/23 Larissa Viveros NP [address] [place] [address] PCP - General Family Medicine 11/12/23 documented as of this encounter
--- OUTSIDE RECORDS SUMMARY | 2025-03-09 20:04 | XMS_ITS | Encounter Summary ---
Author Organization [employer] Address [address] [facility] 7t [place] [address] Care Team Providers Care Mainspring Fabrication Supervisor Name Role Phone Larissa Viveros NP Primary Care Provider [phone] Reason for Visit * Reason Onset Date Comments Nurse Triage 12/30/2024 Encounter Details Date Type Department Care Team ([facility] st Contact Info) Description 12/30/2024 Telephone [facility] MEDICINE [address] [place] [address] Larissa Viveros NP [address] [place] [address] Nurse Triage Social History Tobacco Use Types [...] to Triston Cote to triage below at [phone]. Reports having sx of increased palpitations and [...] Pt advised of disposition, agrees to seek [facility] now for evaluation of sx. Pt agrees to contact EMS for transport. Sent to team for [facility] status check PRN. Protocol Used: Chest [...] Reason: Chest pain Please contact pt at [phone]. documented in this encounter Plan of Treatment Upcoming Encounters Date Type Department Care Team (Late st Contact Info) Description 03/10/2025 3:00 PM EDT Office Visit [facility] OPTOMETRY [address] [place] [address] Anahi Barron, OD 230 [place] [address] 03/25/2025 10:00 AM EST Nutrition [facility] DIABETES/NUTRITION [address] [place] [address] Cherry Major, RD 230 [place] [address] documented as of this encounter Visit Diagnoses Not on filedocumented in this encounter Additional Health Concerns Assessment Noted Time PHQ-9 Depression Total Score: 25 08/2 024 12:06 PM EDT documented as of this encounter Care Teams [employer] Supervisor Relationship Specialty Start Date End Date Larissa Viveros NP [address] [place] [address] PCP - General Family Medicine 11/12/23 documented as of this encounter
--- OUTSIDE RECORDS SUMMARY | 2025-03-09 20:04 | XMS_ITS | Encounter Summary ---
Demographics Address [address] [facility] [address] [place] [address] Mobile Phone Home Phone Work Phone Preferred Language en Marital Status Unknown Methodist Affiliation Unknown Race Other Race Additional Race(s) White Ethnic Group Unknown Author Organization [employer] Address [address] [facility] 7t [place] [address] Care Team Providers Care Control Chemist Name Role Phone Larissa Viveros NP Primary Care Provider [phone] Encounter Details Date Type Department Care Team (Late st Contact Info) Description 03/09/2025 Orders Only GENERIC EXTERNAL DATA DEPARTMENT Provider, Generic External Data Social History Tobacco Use Types Packs/Day Years [...] 03/10/2025 3:[address]T Office [address] [facility] OPTOMETRY [address] [place] [address] Anderson, Anahi, OD [address] [place] [address] 03/25/2025 10:[address] [facility] DIABETES/NUTRITION [address] [place] [address] Cherry Major, RD [address] [place] [address] documented as of this encounter Procedures Procedure Name Priority Date/Time Associated Diagnosis Comments CT ABDOMEN PELVIS W CONTRAST Routine 03/09/2025 7:56 PM EDT OBSX1 Routine 03/09/2025 5:16 PM EDT CBC WITH AUTO DIFFERENTIAL Routine 03/09/2025 2:41 PM EDT LIPASE Routine 03/09/2025 2:41 PM EDT COMPREHENSIVE METABOLIC PANEL Routine 03/09/2025 2:41 PM EDT documented in this encounter Results * CT Abdomen Pelvis w/ Contrast (03/09/2025 7:56 PM EDT) Anatomical Region Laterality Modality Body, Pelvis, Abdomen Computed T omography 03/09/2025 7:56 PM EDT Narrative 03/09/2025 7:58 PM EDT [place] [address] [address] Scan Report Signed Patient: Triston Quinn MR#: [id number] : 1980 Acct:[id number] Age/Sex: 44 / M ADM Date: 03/09/25 Loc: .ED Attending Dr: Ordering Physician: Ant Pedraza Date of Service: 03/09/25 Procedure(s): CT abdomen pelvis w IV con Accession Number(s): [id number] cc: [facility]; Ant Pedraza Report Number: [id number]: Total DLP = 1736.00 mGy-cm Reason for [...] in OV> 03/09/251956 DD/ 55 TD/TT: 03/09/251955 [employer]: Procedure Note Donotuseinterpreter, Image - 03/09/[address] [place] [address] [address] Scan Report Signed Patient: Triston Quinn EMR#: [id number] : 1980Acct:[id number] Age/Sex: 44 / MADM Date: 03/09/25 Loc: HO.ED Attending Dr: Ordering Physician: Ant Pedraza Date of Service: 03/09/25 Procedure(s): CT abdomen pelvis w IV con Accession Number(s): [id number] cc: [facility]; Ant Pedraza Report Number: [id number]: Total DLP = 1736.00 mGy-cm Reason for [...] in OV> 03/09/251956 DD/ 55 TD/TT: 03/09/251955 [employer] Foreign Food: [facility] External Provider IMG CT PROCEDURES Final Result * OBSX1 (03/09/2025 5:16 PM EDT) Pathologist [facility] OBS1 NEGATIVE NEGATIVE [facility] 03/09/2025 5:16 PM EDT 03/09/2025 5:19 PM EDT Generic External Data Provider LAB BLOOD ORDERAB LES Final Result Performing Organization Address City/[facility]/ZIP Co de Phone Number [facility] [address] [place] [address] [phone] * Lipase (03/09/2025 2:41 PM EDT) Pathologist [facility] Lipase 17 8 - 78 U/L [facility] 03/09/2025 2:41 PM EDT 03/09/2025 2:48 PM EDT Generic External Data Provider LAB BLOOD ORDERAB LES Final Result Performing Organization Address City/[facility] Co de Phone Number [facility] [address] [place] [address] [phone] * (ABNORMAL) Comprehensive Metabolic Panel (03/09/2025 2:41 PM EDT) [facility] Sodium 141 135 - 145 mmol/L [facility] Potassium 4.0 3.3 - 5.1 mmol/L [facility] Chloride 108 96 - 108 mmol/L [facility] Carbon Dioxide 29 22 - 29 mmol/L [facility] Anion Gap 8(L) 12 - 20 [facility] Urea Nitrogen (BUN) 11 9 - 16 mg/dL [facility] Creatinine, Serum 0.68 0.5 - 1.4 mg/dL [facility] Creatinine Clr Calc Pharmacy 217.9 [facility] Comment:eGFR (calculated fro m the MDRD study equation) and eCrCl(calculated from the Cockcroft-Gault equation) are based ondifferent parameters and may not yield comparable results.If eCrCl result is absurd, please check patient'sheight/weight. Estimated Glomerular Filt Rate >60 [facility] Comment:Chronic Kidney Disea se: Estimated GFR < 60 mL/min/[id number] Kidney Disease: Estimated GFR < 15 mL/min/1.73m2 Glucose 88 60 - 115 mg/dL [facility] Calcium 8.8 8.4 - 10.2 mg/dL [facility] Bilirubin, Total 0.3 0.0 - 1.0 mg/dL [facility] Aspartate Amino Transferase 28 5 - 37 U/L [facility] Alanine Aminotransferase 44(H) 0 - 40 U/L [facility] Total Protein 6.9 6.5 - 8.0 g/dL [facility] Albumin Level 3.7 3.5 - 5.0 g/dL [facility] Alkaline Phosphatase 65 39 - 117 U/L [facility] 03/09/2025 2:41 PM EDT 03/09/2025 2:48 PM EDT us Generic External Data Provider LAB BLOOD ORDERAB LES Final Result [facility] [address] [place] [phone] * (ABNORMAL) CBC auto differential (03/09/2025 2:41 PM EDT) White Blood Count 9.6 4.8 - 10.8 X10*3/uL [facility] Red Blood Count 4.84 4.60 - 5.80 X10*6/uL [facility] Hemoglobin 13.2(L) 14.0 - 18.0 g/dl [facility] Hematocrit 41.7(L) 42.0 - 52.0 % [facility] Mean Corpuscular Volume 86.2 80.0 - 98.0 fL [facility] Mean Corpuscular Hemoglobin 27.3 27.0 - 33.0 pg [facility] Mean Corpuscular HGB Conc 31.7 31.0 - 36.0 g/dl [facility] Red Cell Distribution Width 13.5 11.0 - 16.0 % [facility] Platelet Count 201 160 - 400 X10*3/uL [facility] Mean Platelet Volume 11.4 9.4 - 12.4 fL [facility] Neutrophils Percent Auto 60.2 45 - 73 % [facility] Imm Gran Pct Auto 0.3 0.0 - 0.4 % [facility] Lymphocytes Percent Auto 28.4 20 - 40 % [facility] Monocytes Percent Auto 8.7 2 - 11 % [facility] Eosinophils Percent Auto 2.1 0 - 4 % [facility] Basophils Percent Auto 0.3 0 - 2 % [facility] NRBC Pct Auto 0.0 0.0 - 0.2 /100WBC [facility] Neutrophils Absolute Auto 5.8 2.0 - 8.3 x10*3/uL [facility] Imm Gran Abs Auto 0.03 0.00 - 0.03 X10*3/uL [facility] Lymphocytes Absolute Auto 2.7 1.2 - 4.9 X10*3/uL [facility] Monocytes Absolute Auto 0.8 0.1 - 1.2 X10*3/uL [facility] Eosinophils Absolute Auto 0.2 0.0 - 0.4 X10*3/uL [facility] Basophils Absolute Auto 0.0 0.0 - 0.2 X10*3/uL [facility] NRBC Abs Auto 0.000 0.0 - 0.012 X10*3/uL [facility] 03/09/2025 2:41 PM EDT 03/09/2025 2:48 PM EDT us Generic External Data Provider LAB BLOOD ORDERAB LES Final Result [facility] [address] [place] [phone] [phone] documented in this encounter Visit Diagnoses Not on filedocumented in this encounter Additional Health Concerns Assessment Noted Time PHQ-9 Depression Total Score: 15 01/17/ 025 4:20 PM EDT documented as of this encounter Care Teams Control Chemist Relationship Specialty Start Date End Date Larissa Viveros NP [address] [place] [address] PCP - General Family Medicine 11/12/23 documented as of this encounter
--- OUTSIDE RECORDS SUMMARY | 2025-03-09 20:04 | XMS_ITS | Encounter Summary ---
Author Organization [employer] Address [address] [facility] 7t [place] [address] Care Team Providers Care Product Management Consultant Name Role Phone Larissa Viveros NP Primary Care Provider Encounter Details Date Type Department Care Team ([facility] st Contact Info) Description 03/09/2025 Telephone [facility] MEDICINE [address] [place], [place] [phone] Larissa Viveros NP [address] [place] [address] Social History Tobacco Use Types Packs/Day Years [...] Description 03/10/2025 3:00 PM EDT Office Visit [facility] OPTOMETRY [address] [place] [address] AndersonAnahi butler, OD [address] [place] [address] 03/25/2025 10:00 AM EST Nutrition [facility] DIABETES/NUTRITION [address] [place] [address] Cherry Major, NOHEMY [address] [place] [address] documented as of this encounter Visit Diagnoses Not on filedocumented in this encounter Additional Health Concerns Assessment Noted Time PHQ-9 Depression Total Score: 15 025 4:20 PM EDT documented as of this encounter Care Teams Product Management Consultant Relationship Specialty Start Date End Date Larissa Viveros NP [address] [place] [address] PCP - General Family Medicine 11/12/23 documented as of this encounter
--- OUTSIDE RECORDS SUMMARY | 2025-03-09 20:04 | XMS_ITS | Encounter Summary ---
Author Organization [employer] Address [address] [facility] [address]t [place] [address] Care Team Providers Care Plant Maintenance Technician Name Role Phone Larissa Viveros NP Primary Care Provider [phone] Encounter Details Date Type Department Care Team ([facility] st Contact Info) Description 01/14/2025 Orders Only [facility] [address] [place] [address] Larissa Viveros NP [address] [place] [address] Drug-induced constipation (Primary Dx); Gastroesophageal reflux disease, [...] the past 12 months, has t he [employer], gas, oil or water company threatened to [...] Description 03/10/2025 3:00 PM EDT Office Visit [facility] OPTOMETRY [address] [place] [address] Anderson, Anahi, OD [address] [place] [address] 03/25/2025 10:00 AM EST Nutrition [facility] DIABETES/NUTRITION [address] [place] [address] Cherry Major, RD [address] [place] [address] documented as of this encounter Visit Diagnoses Diagnosis Drug-induced constipation- Primary Other constipation Gastroesophageal reflux disease, unspecified whether esophagitis present documented in this encounter Additional Health Concerns Assessment Noted Time PHQ-9 Depression Total Score: 25 024 12:06 PM EDT documented as of this encounter Care Teams Plant Maintenance Technician Relationship Specialty Start Date End Date Larissa Viveros NP [address] [place] [address] PCP - General Family Medicine 11/12/23 documented as of this encounter
--- OUTSIDE RECORDS SUMMARY | 2025-03-09 20:04 | XMS_ITS | Encounter Summary ---
Author Organization [employer] Address [address] [facility] 7t [place] [address] Care Team Providers Care Airport Skilled Maintenance Supervisor Name Role Phone Larissa Viveros NP Primary Care Provider [phone] Encounter Details Date Type Department Care Team ([facility] st Contact Info) Description 03/09/2025 Telephone [facility] MEDICINE [address] [place], [place] [phone] Larissa Viveros NP [address] [place] [address] Social History Tobacco Use Types Packs/Day Years [...] encounter Miscellaneous Notes * Telephone Encounter - Isabella Duncan RN - 03/09/2025 11:13 AM EDT Incoming call from pt reporting off and on rectal bleeding with bowel movements x 3 weeks. Pt reports that he had been taking blood thinners since recent admission but stopped because rectal bleedingwould not stop. Pt reports that he is currently having a bowel movement and is having rectal bleeding equivalent to a woman's period. Pt c/p 11/18 starting on his back near his kidney and wrapping around to the left side of his stomach. Pt denies dizziness and weakness but reports that he is tired. Recommended that pt hang up and call 911. Pt reports agreement with plan and states he will likely go to [facility]. Protocol Used: Rectal Bleeding (Adult) Protocol-Based Disposition: Go to ED Now Positive Triage Questions: * Severe rectal bleeding (large blood clots; constant or on and off bleeding) * High-risk adult (history of anticoagulant use) * Severe abdominal pain (e.g., excruciating) * All higher-acuity triage questions were negative Care Advice Discussed: * Reasons To Call Back - Bleeding increases in amount - You become worse documented in this encounter Plan of Treatment Upcoming Encounters Date Type Department Care Team (Late st Contact Info) Description 03/10/2025 3:00 PM EDT Office Visit [facility] OPTOMETRY [address] [place] [address] Anderson, Anahi, OD [address] [place] [address] 03/25/2025 10:00 AM EST Nutrition [facility] DIABETES/NUTRITION [address] [place] [address] [place] [address] documented as of this encounter Visit Diagnoses Not on filedocumented in this encounter Additional Health Concerns Assessment Noted Time PHQ-9 Depression Total Score: 15 01/17/ 025 4:20 PM EDT documented as of this encounter Care Teams Airport Skilled Maintenance Supervisor Relationship Specialty Start Date End Date Larissa Viveros NP [address] [place] [address] PCP - General Family Medicine 11/12/23 documented as of this encounter
[2025-03-09 20:50] VITALS: BP 128/55; PULSE 54; RESP 16; TEMP 36.9; O2SAT 98
[2025-03-09 21:07] VITALS: BP 128/55; PULSE 54; RESP 16; TEMP 36.9; O2SAT 98
== END 2025-03-09 21:08 | disposition home or self-care (01) ==
PROVIDERS: Physician Assistant; Student in an Organized Health Care Education/Training Program; Emergency Provider Emergency Medicine Emergency Medical Services
DX: K62.5 Hemorrhage of anus and rectum (principal); R10.9 Unspecified abdominal pain
CPT/HCPCS: 36415; 74177; 80053; 82272; 83690; 85025; 99284; Q9967

== ENCOUNTER → 2025-03-09 16:46 | Outpatient (BNV) | payer MEDICAID, SELFPAY | PROVIDERS: Emergency Provider Emergency Medicine Emergency Medical Services; Visit Provider Student in an Organized Health Care Education/Training Program | DX: K62.5 Hemorrhage of anus and rectum (principal); R10.9 Unspecified abdominal pain | CPT/HCPCS: 74177 ==

== ENCOUNTER 2025-04-28 12:29 | Outpatient (AMB) | payer MEDICAID, SELFPAY ==
--- NOTE | 2025-04-28 12:47 | A.OFFVIS_ITS ---
Vital Signs 04/28/25 12:48 Height 5 ft 9 in Weight 370 lb 6.025 oz BMI 54.7 BP 122/80 Blood Pressure Location Lt brachial Position Sitting Pulse 69 Intake Visit Reasons: 3m follow up Intake Note: 3 month follow-up c/o chest pain if lifting anything Optical Instrument Inspector Required: No Allergies No Known Allergies (No Known Allergies*) Allergy (Verified 03/09/25 13:38) Medication List - Last Reconciled 04/28/25 by Berto Barrera MD atorvastatin (Lipitor) 80 mg PO BEDTIME hydrocortisone acetate (Anucort-HC) 25 mg CO BID nitroglycerin (Nitrostat) 0.4 mg sublingual Q5MX3 PRN HPI Comments Details: Triston comes for follow-up after 3 months. He has stopped taking his antiplatelet agents as he said he had bright red blood per rectum. He had come to the emergency room end of February and was seen and was not admitted as it was felt that he has GI bleed was not significant. His hematocrit was stable. There was no repeats performed. However since then he has stopped taking his oral antiplatelet therapy in his not noticed any further bleed. He complains of frequent diarrhea thinks it was related to IBS. He also has left upper quadrant discomfort. He has not had any chest pain. He is taking in his high-intensity statin therapy. [facility] Medical History Hypertension Obstructive sleep apnea Anxiety Depression Hypercholesteremia GERD (gastroesophageal reflux disease) Surgical History History of cardiac cath H/O colonoscopy H/O circumcision Family History Mother Arterial stent thrombosis Maternal Grandmother Diabetes Dementia Father Lung cancer Social History Household Members: Significant Other Housing: Apartment Are you a primary field care advocate to a significant other at home: No Do you presently have visiting nurse or other home services: No Alcohol intake: current Alcohol intake frequency: a few times a month Patient Tobacco Use Status: Current someday Tobacco user Tobacco use type: Cigarette e-Cigarette/Vaping Use: Currently Using Substance Use Type: Marijuana service: No Current occupational status: disabled Review of Systems Const Denies chills, Denies fatigue, Denies fever(s), Denies frequent falls, Denies weakness, Denies weight gain and Denies weight loss ENT Denies dizziness Card Denies chest pain, Denies leg edema, Denies lightheadedness, Denies palpitations, Denies dyspnea, Denies dyspnea on exertion, Denies orthopnea and Denies other (loss of consciousness) Resp Denies cough, Denies dyspnea and Denies dyspnea on exertion GI Denies hematochezia and Denies change in stool character Musc Denies abnormal gait, Denies muscle weakness, Denies numbness, Denies radiating pain into limb and Denies tingling Neuro Denies abnormal gait, Denies dizziness, Denies frequent falls, Denies numbness, Denies tingling and Denies weakness Endo Denies fatigue and Denies palpitations Physical Exam Vital Signs: Last Vital Signs Pulse 69 04/28/25 12:48 BP 122/80 04/28/25 12:48 BMI result Body Mass Index 54.7 Const General: cooperative, healthy appearing, comfortable and no acute distress Orientation/consciousness: patient oriented x3 Neck Neck: Yes normal visual inspection Resp Effort & Inspection: normal respiratory effort Auscultation: clear to auscultation bilaterally, no rales, no rhonchi and no wheezes Cardio Rate: regular rate Rhythm: regular rhythm Heart sounds: S1 normal heart sound present, S2 normal heart sound present, no gallops, no murmurs and no rubs Neuro General: patient oriented x3 Extrem Other: right radial cath site with easily palpable radial pulse General: Yes normal to inspection, No no pedal edema and No calf tenderness Psych Appearance: grossly normal Mental Status: mental status grossly normal Speech and movement: Normal speech and movement present Assessment & Plan Assessment & Plan (1) CAD (coronary artery disease): Code(s): I25.10 - Atherosclerotic heart disease of [place] coronary artery without angina pectoris Category: Medical Plan: CAD with drug-eluting stent x2 to the RCA as well as x2 to the circumflex artery. This was performed in his setting of acute coronary syndrome. He has stopped dual antiplatelet therapy for about a month. I absolutely discuss with him of not doing that as this increases his risk for acute stent thrombosis in his risk of myocardial infarction. He said he has stopped because he was having bright red blood per rectum. As per the ED noted seems like it was not hemodynamically significant possibly hemorrhoidal bleed. Patient is very anxious about GI health. I have advised him to restart dual antiplatelet therapy with aspirin and Plavix with 300 mg of Plavix loading. If he develops recurrent bright red blood per rectum I have advised him to come to the emergency room in his should be admitted for further inpatient GI workup and not stop his antiplatelet agent abruptly. Continue high-intensity statin therapy. Advised lipid panel in near future. He is at high risk given his noncompliance with medical therapy. (2) Hypertension: Code(s): I10 - Essential (primary) hypertension Category: Medical Plan: Hypertension currently not on any medications. He has stopped all his medications. Currently blood pressure is optimized without using any medication s. Continue monitor clinically. In the long run will benefit from aggressive weight loss program. Advised to monitor blood pressure and maintain a log. Goal blood pressure less than 130/84. Will follow up in the clinic in 6 months time, sooner PRN. Thank you for allowing me to partake in his care Orders: Orders Lipid Panel Today I25.10 - Atherosclerotic heart disease of [place] coronary artery without angina pectoris Medications: New aspirin (Ecotrin Low Strength) 81 mg PO DAILY 30 tabs 5RF clopidogrel (Plavix) Take 4 on the 1st day 75 mg PO DAILY 30 tabs 5RF Coding Level of Care Code Est Pt Level 4 (22582) Diagnoses CAD (coronary artery disease) I25.10 Hypertension I10
[2025-04-28 12:48] VITALS: BP 122/80; PULSE 69; BMI 54.7
--- OUTSIDE RECORDS SUMMARY | 2025-04-28 16:17 | XMS_ITS | Encounter Summary ---
Author Organization [employer] Address [address] [facility] [address] [place] [address] Care Team Providers Care Airline Captain Name Role Phone Lilo BarrientosP Primary Care Provider [phone] Larissa Viveros NP Primary Care Provider [phone] Reason for Visit * Reason Onset Date Comments Nurse Triage 10/27/2023 Encounter Details Date Type Department Care Team ([facility] st Contact Info) Description 10/27/2023 Telephone [facility] MEDICINE [address] [place] [address] Lilo Barrientos FNP [address] [place] [address] Nurse Triage Social History Tobacco Use Types [...] agreed with home care advised. Apt with RADAR SYSTEMS ENGINEER Yuli 10/30/23 @ 1115am. Pt is offered [...] Patient calling to report pulpitis. Patient speaks Dutch. Advised triage nurse will call patient back. documented in this encounter Plan of Treatment Upcoming Encounters Date Type Department Care Team (Late st Contact Info) Description 06/09/2025 1:00 PM EST Nutrition [facility] DIABETES/NTRN [address] [place], [place] [phone] Cherry Major, RD [address] [place] [address] documented as of this encounter Visit Diagnoses Not on filedocumented in this encounter Care Teams Airline Captain Relationship Specialty Start Date End Date Botas, Lilo, [employer] PIPE MANUFACTURING SUPERVISOR [address] [place] [address] PCP - General Family Medicine 10/04/22 11/11/23 Larissa Viveros NP [address] [place] [address] PCP - General Family Medicine 11/12/23 documented as of this encounter
--- OUTSIDE RECORDS SUMMARY | 2025-04-28 16:17 | XMS_ITS | Clinical Summary ---
Author Organization [employer] Address [address] [facility] [address] [place] [address] Care Team Providers Care Hoisting Engineer Pile Driving Name Role Phone Larissa Viveros MACARIO Primary Care Provider [phone] Allergies No known active allergies Medications * [...] times daily. 60 tablet 3 5 01/15/20 Active ticagrelor (Brilinta) 90 MG tablet Take 1 tablet (90 mg) by mouth 2 times daily. 180 tablet 5 Active albuterol 108 (90 Base) MCG/ACT inhalerIndicati ons:Shortness of breath,Wheezing Inhale 2 puffs every 6 (six) hours if needed for wheezing. 18 g 1 5 02/15/20 26 Active fluticasone (Flonase) 50 MCG/ACT nasal sprayIndication s:Acute cough Administer 1 spray into each nostril 2 times daily. Shake gently. Before first use, prime pump. After use, clean tip and replace cap. 16 g 1 5 02/15/20 26 Active Active Problems Problem Noted Date Diagnosed [...] organization. Date Type Department Care Team Description 04/26/2025 Travel 03/31/[address] [address] Larissa Viveros NP Nurse Triage 03/18/[address] [address] Prashant Lockwood [place] chart prep 03/14/2025 Patient Outreach [facility]C MED & PEDS [address] [place], [place] [phone] Larissa Viveros NP Pre-visit Planning (SDOH unable to reach LVM ) 03/10/2025 3:00 PM EDT Office Visit [facility] OPTOMETRY [address] [place] [address] Anderson, Anahi, OD White without pressure of peripheral retina of right eye (Primary Dx); Myopia of both eyes 03/09/2025 Orders Only GENERIC EXTERNAL DATA DEPARTMENT Provider, Generic External Data 03/09/[address] [address] Larissa Viveros NP 03/09/2025 Travel 02/22/[address] [address] Larissa Viveros NP letter for fmla 02/17/[address] [address] Larissa Viveros NP Results 02/16/[address] [address] Larissa Viveros NP Call Back Request 02/16/[address] [address] Larissa Viveros NP Nurse Triage 02/15/2025 [address] [place] [address] Larissa Vivreos NP Results 02/14/2025 3:00 PM EDT Office Visit [facility] WALK-IN CENTER [address] [place] [address] Barbra Arellano NP Acute cough (Primary Dx); Shortness of breath; Wheezing; Elevated blood pressure reading in office with diagnosis of hypertension 02/14/2025 Results Follow-Up [facility] WALK-IN CENTER [address] [place] [address] Barbra Arellano NP XR Chest 2 Views, Respiratory Viral Panel PCR 02/14/2025 Travel 02/07/2025 Orders Only [facility] MEDICINE [address] [place] [address] Larissa Viveros NP NSTEMI (non-ST elevated myocardial infarction) (CMS/HCC) (Primary Dx); H/O heart artery stent 02/07/[address] [address] Larissa Viveros NP Med Refill 01/31/2025 Telephone [facility] MEDICINE [address] [place] [address] Larissa Viveros NP Medication Question from Last 3 Months Immunizations Immunization Administration [...] Info) Description 06/09/2025 1:00 PM EST Nutrition [facility] CHC DIABETES/NTRN [address] [place] [address] Cherry Major, RD [address] [place] [address] Health Maintenance Due Date Last Done Comments [...] 01/17/2025 SDOH Screening 01/17/2026 01/17/2025 Tobacco Screening 03/28/2026 03/28/2025 Lipid Panel 12/16/2028 12/17/2023, 01/11, 08/18/2020 DTaP/Tdap/Td [...] 02/14/2025 4:20 PM EDT Shortness of breath HEMOGLOBIN A1C Routine 12/17/2023 11:40 AM EDT [...] PM EDT Narrative 03/09/2025 7:58 PM EDT [address] [address] [address] Scan Report Signed Patient: Triston Quinn MR#: [id number] : 1980 Acct:[id number] Age/Sex: 44 / M ADM Date: 03/09/25 Loc: .ED Attending Dr: Ordering Physician: Ant Pedraza Date of Service: 03/09/25 Procedure(s): CT abdomen pelvis w IV con Accession Number(s): [id number] cc: [facility] [place]; Ant Pedraza Report Number: [id number]: Total DLP = 1736.00 mGy-cm Reason for [...] in OV> 03/09/251956 DD/ 55 TD/TT: 03/09/251955 Automatic Splicing Machine Operator: Procedure Note Donotuseinterpreter, Image - 03/09/[address] [address] [address] Scan Report Signed Patient: Triston Quinn EMR#: [id number] : 1980Acct:[id number] Age/Sex: 44 / MADM Date: 03/09/25 Loc: .ED Attending Dr: Ordering Physician: Ant Pedraza Date of Service: 03/09/25 Procedure(s): CT abdomen pelvis w IV con Accession Number(s): [id number] cc: [facility] [place]; Ant Pedraza Report Number: [id number]: Total DLP = 1736.00 mGy-cm Reason for [...] in OV> 03/09/251956 DD/ 55 TD/TT: 03/09/251955 Automatic Splicing Machine Operator: [facility] External Provider IMG CT PROCEDURES Final Result * OBSX1 (03/09/2025 5:16 PM EDT) OBS1 NEGATIVE NEGATIVE [facility] 03/09/2025 5:16 PM EDT 03/09/2025 5:19 PM EDT Generic External Data Provider LAB BLOOD ORDERAB LES Final Result [facility] [address] [place] [phone] * (ABNORMAL) CBC auto differential (03/09/2025 2:41 PM EDT) White Blood Count 9.6 4.8 - 10.8 X10*3/uL [facility] Red Blood Count 4.84 4.60 - 5.80 X10*6/uL [facility] Hemoglobin 13.2(L) 14.0 - 18.0 g/dl [facility] Hematocrit 41.7(L) 42.0 - 52.0 % [facility] Mean Corpuscular Volume 86.2 80.0 - 98.0 fL [facility] Mean Corpuscular Hemoglobin 27.3 27.0 - 33.0 pg [facility] Mean Corpuscular HGB Conc 31.7 31.0 - 36.0 g/dl [facility] Red Cell Distribution Width 13.5 11.0 - 16.0 % [facility] Platelet Count 201 160 - 400 X10*3/uL [facility] Mean Platelet Volume 11.4 9.4 - 12.4 fL [facility] Neutrophils Percent Auto 60.2 45 - 73 % [facility] Imm Gran Pct Auto 0.3 0.0 - 0.4 % [facility] Lymphocytes Percent Auto 28.4 20 - 40 % [facility] Monocytes Percent Auto 8.7 2 - 11 % [facility] Eosinophils Percent Auto 2.1 0 - 4 % [facility] Basophils Percent Auto 0.3 0 - 2 % [facility] NRBC Pct Auto 0.0 0.0 - 0.2 /100WBC [facility] Neutrophils Absolute Auto 5.8 2.0 - 8.3 x10*3/uL [facility] Imm Gran Abs Auto 0.03 0.00 - 0.03 X10*3/uL [facility] Lymphocytes Absolute Auto 2.7 1.2 - 4.9 X10*3/uL [facility] Monocytes Absolute Auto 0.8 0.1 - 1.2 X10*3/uL [facility] Eosinophils Absolute Auto 0.2 0.0 - 0.4 X10*3/uL [facility] Basophils Absolute Auto 0.0 0.0 - 0.2 X10*3/uL [facility] NRBC Abs Auto 0.000 0.0 - 0.012 X10*3/uL [facility] 03/09/2025 2:41 PM EDT 03/09/2025 2:48 PM EDT us Generic External Data Provider LAB BLOOD ORDERAB LES Final Result [facility] [address] [place] [address] [phone] * Lipase (03/09/2025 2:41 PM EDT) Lipase 17 8 - 78 U/L [facility] 03/09/2025 2:41 PM EDT 03/09/2025 2:48 PM EDT us Generic External Data Provider LAB BLOOD ORDERAB LES Final Result [facility] [address] [place] [address] [phone] * (ABNORMAL) Comprehensive Metabolic Panel (03/09/2025 2:41 PM EDT) Sodium 141 135 - 145 mmol/L [facility] Potassium 4.0 3.3 - 5.1 mmol/L [facility] Chloride 108 96 - 108 mmol/L [facility] Carbon Dioxide 29 22 - 29 mmol/L [facility] Anion Gap 8(L) 12 - 20 [facility] Urea Nitrogen (BUN) 11 9 - 16 mg/dL [facility] Creatinine, Serum 0.68 0.5 - 1.4 mg/dL [facility] Creatinine Clr Calc Pharmacy 217.9 [facility] Comment:eGFR (calculated fro m the MDRD study equation) and eCrCl(calculated from the Cockcroft-Gault equation) are based ondifferent parameters and may not yield comparable results.If eCrCl result is absurd, please check patient'sheight/weight. Estimated Glomerular Filt Rate >60 [facility] Comment:Chronic Kidney Disea se: Estimated GFR < 60 mL/min/[id number] Kidney Disease: Estimated GFR < 15 mL/min/1.73m2 Glucose 88 60 - 115 mg/dL [facility] Calcium 8.8 8.4 - 10.2 mg/dL [facility] Bilirubin, Total 0.3 0.0 - 1.0 mg/dL [facility] Aspartate Amino Transferase 28 5 - 37 U/L [facility] Alanine Aminotransferase 44(H) 0 - 40 U/L [facility] Total Protein 6.9 6.5 - 8.0 g/dL [facility] Albumin Level 3.7 3.5 - 5.0 g/dL [facility] Alkaline Phosphatase 65 39 - 117 U/L [facility] 03/09/2025 2:41 PM EDT 03/09/2025 2:48 PM EDT us Generic External Data Provider LAB BLOOD ORDERAB LES Final Result [facility] [address] [place] [address] [phone] * (ABNORMAL) Respiratory Viral Panel PCR (02/14/2025 4:46 PM EDT) Adenovirus PCR Not Detected Not Detect. [facility] Bordetella pertussis PCR Not Detected Not Detect. [facility] Comment:Interpret results wi th caution. If B. pertussis isspecifically suspected, additional testing using analternate method is recommended. Bordetella parapertussis PCR Not Detected Not Detect. [facility] Chlamydia pneumoniae PCR Not Detected Not Detect. [facility] Coronavirus 229E PCR Not Detected Not Detect. [facility] Coronavirus HKU1 PCR Not Detected Not Detect. [facility] Coronavirus NL63 PCR Not Detected Not Detect. [facility] Coronavirus OC43 PCR Not Detected Not Detect. [facility] SARS-CoV-2 PCR Not Detected Not Detect. [facility] Comment:SARS-CoV-2 not detec tarah by real-time [...] Influenza A PCR Not Detected Not Detect. [facility] Influenza A Subtype H1 Not Detected Not Detect. [facility] Influenza A H1-2009 PCR Not Detected Not Detect. [facility] Influenza A Subtype H3 Not Detected Not Detect. [facility] Influenza B PCR Not Detected Not Detect. [facility] Human metapneumovirus PCR Not Detected Not Detect. [facility] Rhino/Enterovirus PCR Detected(A) Not Detect. [facility] Mycoplasma pneumoniae PCR Not Detected Not Detect. [facility] Parainfluenza 1 PCR Not Detected Not Detect. [facility] Parainfluenza 2 PCR Not Detected Not Detect. [facility] Parainfluenza 3 PCR Not Detected Not Detect. [facility] Parainfluenza 4 PCR Not Detected Not Detect. [facility] RSV PCR Not Detected Not Detect. [facility] Resp Panel NA Note See Note H [facility] Comment:All results must be correlated with [...] assay is performed by Multiplexed PCR, utilizing [employer] Film Array. Swab 02/14/2025 4:46 PM EDT 02/15/2025 1:22 PM EDT us Barbra Appram [facility] LAB BLOOD ORDERABLES Final Resu lt [facility] [address] [place] [address] [phone] * XR Chest 2 Views (02/14/2025 4:20 PM EDT) Anatomical Region Laterality Modality Chest Radiographic Priya ging 02/14/2025 4:20 PM EDT Narrative 02/14/2025 4:34 PM EDT [address] [address] XRay Report Signed Patient: Triston Quinn MR#: M [id number] : 1980 Acct:[id number] Age/Sex: 44 / M ADM Date: 02/14/25 Loc: DU[facility] Attending Dr: Barbra Arellano Ordering Physician: Barbra Arellano Date of Service: 02/14/25 Procedure(s): XR chest 2V Accession Number(s): [id number] cc: Barbra Arellano Reason for Exam: shortness [...] 02/14/25 1631 DD/ 1620 TD/TT: 02/14/25 1624 Automatic Splicing Machine Operator: Procedure Note Donotuseinterpreter, Image - 02/14/[address] [address] XRay Report Signed Patient: Triston Quinn EMR#: [id number] : 1980Acct:[id number] Age/Sex: 44 / MADM Date: 02/14/25 Loc: DUONG Attending Dr: Barbra Arellano Ordering Physician: Barbra Arellano Date of Service: 02/14/25 Procedure(s): XR chest 2V Accession Number(s): [id number] cc: Barbra Arellano Reason for Exam: shortness [...] 02/14/25 1631 DD/ 1620 TD/TT: 02/14/25 1624 Automatic Splicing Machine Operator: us Barbra Arellano [facility] IMG XR PROCEDURES Final Result * Hemoglobin A1c (12/17/2023 11:40 AM EDT) Hemoglobin A1c 5.7 <6.0 % [facility] Comment:Hemoglobin A1C Refer ence Range Adults: 4.8 - 6.0 % Non diabetic: < 6.0 % Goal: < 7.0 %Additional Action Suggested: > 8.0 %Note: Hemoglobin A1c results are invalid for patients with abnormal amounts of HbF. Blood transfusions may impact the HbA1c concentration in the patient sample. Estimated Average Glucose 117 mg/dL [facility] Comment:eAG = Estimated ave rage glucose which is %A1C expressed asaverage glucose, using the formula of the W0S-RortbohRmezgbp Glucose study (ADAG), Diabetes Care, Vol.31,#8,Dec. 2007 Blood Venous blood specimen / Unknown 12/17/2023 11:40 AM EDT 12/17/2023 1:09 PM EDT us Larissa Viveros NP LAB BLOOD ORDERABLES Final Resul t [facility] [address] [place] [phone] * (ABNORMAL) Lipid Panel, Standard (12/17/2023 11:40 AM EDT) Triglycerides 74 <150 mg/dL [facility] Comment:Desirable Triglyceri de: less than 150 mg/dLBorderline High Triglyceride 150-199 mg/dLHigh Triglyceride: 200-499 mg/dLVery High Triglyceride: greater than or equal to 5OO mg/dL Cholesterol 290(H) <200 mg/dL [facility] Comment:Desirable Cholestero l: less than 200 mg/dLBorderline High Cholesterol: 200-239 mg/dLHigh Cholesterol: greater than 239 mg/dL LDL Cholesterol Calculated 235(H) <100 mg/dL [facility] Comment:Desirable LDL: less than 100 mg/dLNear Optimal/Above Optimal LDL: 110- 129 mg/dLBorderline High LDL: 130-159 mg/dLHigh LDL: 160-189 mg/dLVery High LDL: greater than or equal to 190 mg/dL HDL Cholesterol 41 >40 mg/dL [facility] Comment:Desirable HDL: great er than 40 mg/dL Note: This HDL assay may give artificially low results in patients with liver disease. Blood Venous blood specimen / Unknown 12/17/2023 11:40 AM EDT 12/17/2023 1:09 PM EDT Larissa Viveros NP LAB BLOOD ORDERABLES Final Resul t [facility] [address] [place] [phone] * HEPATITIS C AB W/REFL TO [...] a test for HCV RNA (test code 13963) is suggested. For additional information please refer to http://education.[employer]/faq/NBO69w1 (This link is being provided for informational/ educational purposes only.) 11/06/2021 2:02 PM EDT us Ananyajessica [facility] HISTORICAL/NON ORDERABLE LABS Final Result [facility] [address] from Last 3 Months or Most Recently Relevant to Health Maintenance [facility] [place] [place] ADULT Care Teams Hoisting Engineer Pile Driving Relationship Specialty Start Date End Date Larissa Viveros NP [address] [place] [phone] PCP - General Family Medicine 11/12/23
--- OUTSIDE RECORDS SUMMARY | 2025-04-28 16:18 | XMS_ITS | Encounter Summary ---
Author Organization [employer] Address [address] [facility] [address] [place] [address] Care Team Providers Care It Network Architect Name Role Phone Larissa Viveros NP Primary Care Provider [phone] Encounter Details Date Type Department Care Team (Late st Contact Info) Description 01/14/2025 Orders Only [facility] [address] [place], [place] [phone] Larissa Viveros NP [address] [place] [address] Drug-induced constipation (Primary Dx); Gastroesophageal reflux disease, [...] Questionnaire -2 Score 4 01/17/2025 4:20 PM EDT Norberto Dc MA * Little interest or pleasure in doing things Answer Date of Assessment Author Nearly every day 01/17/2025 4:20 PM HAKANT Norberto Dc MA * Feeling down, depressed, or hopeless Answer Date of Assessment Author Several days 01/17/2025 4:20 PM Dennis Greene MA * Trouble falling or staying asleep, [...] Questionnaire-9 Score Answer Date of Assessment Author 01/17/2025 4:20 PM Dennis Greene MA * [...] diff erent things 3 01/17/2025 4:19 PM HAKANT Norberto Dc MA Trouble relaxing 3 01/17/2025 4:19 PM EDT Norberto Sanders MA Being so restless that it is hard to sit still 1 01/17/2025 4:19 PM Norberto Greene MA Becoming easily annoyed or irritable 3 01/17/2025 4:19 PM HAKANT Norberto Dc MA Feeling afraid as if somethi ng awful might happen 0 01/17/2025 4:19 PM EDT Norberto Dc MA ARIA-7 Total Score 13 01/17/2025 4:19 PM EDT Norberto Dc MA documented as of this encounter Plan of Treatment Upcoming Encounters Date Type Department Care Team (Late st Contact Info) Description 06/09/2025 1:00 PM EST Nutrition [facility] [address] [place] [address] Cherry Major, NOHEMY [address] [place] [address] documented as of this encounter Visit Diagnoses Diagnosis Drug-induced constipation- Primary Other constipation Gastroesophageal reflux disease, unspecified whether esophagitis present documented in this encounter Additional Health Concerns Assessment Noted Time PHQ-9 Depression Total Score: 25 024 12:06 PM EDT documented as of this encounter Care Teams It Network Architect Relationship Specialty Start Date End Date Larissa Viveros NP [address] [place] [address] PCP - General Family Medicine 11/12/23 documented as of this encounter
--- OUTSIDE RECORDS SUMMARY | 2025-04-28 16:18 | XMS_ITS | Encounter Summary ---
Author Organization [employer] Address [address] [facility] [address] [place] [address] Care Team Providers Care Sludge Control Attendant Name Role Phone Larissa Viveros MACARIO Primary Care Provider [phone] Encounter Details Date Type Department Care Team (Latest Contact Info) Description 04/26/2025 Travel Social History Tobacco Use Types Packs/Day [...] Info) Description 06/09/2025 1:00 PM EST Nutrition [facility] [address] [place] [address] [place] [address] documented as of this encounter Visit Diagnoses Not on filedocumented in this encounter Additional Health Concerns Assessment Noted Time PHQ-9 Depression Total Score: 15 025 4:20 PM EDT documented as of this encounter Care Teams Sludge Control Attendant Relationship Specialty Start Date End Date Larissa Viveros NP [address] [place] [address] PCP - General Family Medicine 11/12/23 documented as of this encounter
--- OUTSIDE RECORDS SUMMARY | 2025-04-28 16:18 | XMS_ITS | Encounter Summary ---
Author Organization [employer] Address [address] [facility] [address] [place] [address] Care Team Providers Care Quality Assurance Tech Name Role Phone Larissa Viveros NP Primary Care Provider [phone] Reason for Visit * Reason Onset Date Comments Nurse Triage 12/30/2024 Encounter Details Date Type Department Care Team ([facility] Contact Info) Description 12/30/2024 Telephone [facility] [address] [place] [address] Larissa Viveros NP [address] [place] [address] Nurse Triage Social History Tobacco Use Types [...] to Triston Cote to triage below at [phone]. Reports having sx of increased palpitations and [...] Pt advised of disposition, agrees to seek [facility] now for evaluation of sx. Pt agrees to contact EMS for transport. Sent to team for [facility] ER status check PRN. Protocol Used: [...] Reason: Chest pain Please contact pt at [phone]. documented in this encounter Plan of Treatment Upcoming Encounters Date Type Department Care Team (Late st Contact Info) Description 06/09/2025 1:00 PM EST Nutrition [facility] DI[facility]ET[facility]/NTRN [address] [place] [address] [place], [place] [phone] documented as of this encounter Visit Diagnoses Not on filedocumented in this encounter Additional Health Concerns Assessment Noted Time PHQ-9 Depression Total Score: 25 024 12:06 PM EDT documented as of this encounter Care Teams Quality Assurance Tech Relationship Specialty Start Date End Date Larissa Viveros NP [address] [place] [address] PCP - General Family Medicine 11/12/23 documented as of this encounter
== END 2025-04-28 13:15 | disposition home or self-care (01) ==
LOC: HO.HCS 12:29
PROVIDERS: PCP Internal Medicine Geriatric Medicine; Visit Provider Internal Medicine Cardiovascular Disease
DX: I25.10 Atherosclerotic heart disease of native coronary artery without angina pectoris (principal); I10 Essential (primary) hypertension
CPT/HCPCS: 99214

== ENCOUNTER → 2025-04-28 12:29 | Outpatient (BNVA) | payer MEDICAID, SELFPAY | PROVIDERS: PCP Internal Medicine Geriatric Medicine; Visit Provider Internal Medicine Cardiovascular Disease | DX: I25.10 Atherosclerotic heart disease of native coronary artery without angina pectoris (principal); I10 Essential (primary) hypertension | CPT/HCPCS: 99212 ==